=== PATIENT | female | born 1935 | race Caucasian/White ===

== ENCOUNTER 2018-06-02 17:52 | Inpatient (IN) | payer BC, MEDICAID ==
[~2018-06-02] VITALS: Ht 170.2 cm; Wt 91.6 kg
[2018-06-02 18:06] VITALS: BP_SYST 119
--- NOTE | 2018-06-02 18:15 | NUR ---
Pt placed in bed 8
--- NOTE | 2018-06-02 18:20 | NUR ---
Patient to ER via triage with family for evaluation of burning with urination, and foul smelling urine. Patient also reports rash to her right lower leg. Patient is awake, alert and oriented in no acute distress, vital signs stable, respirations even and unlabored, skin warm and dry to touch. Family remains at bedside. Awaiting evaluation by ER MD, will continue to observe and assess.
[2018-06-02] MEDS ORDERED: NS 500 ML IV ONE (18:30)
--- NOTE | 2018-06-02 18:33 | NUR ---
ER at bedside examining patient.
--- NOTE | 2018-06-02 18:37 | NUR ---
# 14 FR straight catheter with use of sterile technique. Immediate return of 30 cc yellow urine noted. Urine sample collected and sent to lab. Pt tolerated procedure well.
--- NOTE | 2018-06-02 18:50 | NUR ---
X-ray at bedside for films. Family remains at bedside, awaiting results and dispo.
[2018-06-02 19:00] LABS: BASOPHILS # (AUTO) 0.1 K/uL (0.0-0.2); BASOPHILS % (AUTO) 0.8 % (0.0-2.0); EOSINOPHILS # (AUTO) 0.1 K/uL (0.0-0.4); EOSINOPHILS % (AUTO) 0.7 % (0.0-4.0); HEMATOCRIT 34.3 % (36-48); HEMOGLOBIN 11.1 g/dL (12.0-16.0); LYMPHOCYTES # (AUTO) 0.7 K/uL (1.0-5.5); LYMPHOCYTES % (AUTO) 9.6 % (20.5-51.5); MEAN CORPUSCULAR HEMOGLOBIN 27 pg (27-31); MEAN CORPUSCULAR HGB CONC 33 % (32-36); MEAN CORPUSCULAR VOLUME 83 fL (79.0-98.0); MONOCYTES # (AUTO) 0.6 K/uL (0.0-1.0); MONOCYTES % (AUTO) 7.6 % (1.7-9.3); NEUTROPHILS % (AUTO) 81.3 % (40.0-70.0); PLATELET COUNT (AUTO) 168 K/uL (130-430); RED BLOOD CELL COUNT(AUTO) 4.14 MIL/uL (4.2-6.2); RED CELL DISTRIBUTION WIDTH 18.2 % (9.0-15.0); WHITE BLOOD COUNT (AUTO) 7.5 K/uL (4.8-10.8)
[2018-06-02 19:12] LABS: ANION GAP 7 (5-15); CALCIUM 8.6 mg/dL (8.4-11.0); CHLORIDE 105 mmol/L (98-107); CREATININE 1.17 mg/dL (0.55-1.30); GLUCOSE 313 mg/dL (70-99); SODIUM SERUM 140 mmol/L (136-145); UREA NITROGEN, BLOOD 31 mg/dL (8-21)
[2018-06-02 19:16] LABS: INR 1.5 (0.8-1.2); PROTHROMBIN TIME 15.1 SECS (9.5-12.5)
[2018-06-02 19:17] LABS: ALANINE AMINOTRANSFERASE 14 U/L (12-78); ALBUMIN 2.6 g/dL (3.4-4.8); ASPARTATE AMINOTRANSFERASE 13 U/L (10-37); TOTAL BILIRUBIN 1.1 mg/dL (0.0-1.0)
--- NOTE | 2018-06-02 19:30 | NUR ---
Patient resting quietly in no acute distress, awaiting results and dispo.
[2018-06-02 19:49] LABS: BILIRUBIN,URINE NEGATIVE (NEGATIVE); BLOOD, URINE 3+ (NEGATIVE); CLARITY/URINE CLOUDY (CLEAR); COLOR,URINE YELLOW (YELLOW); GLUCOSE,URINE NEGATIVE (NEGATIVE); KETONES,URINE NEGATIVE (NEGATIVE); LEUKOCYTE ESTERASE ,URINE 2+ (NEGATIVE); NITRITE, URINE POSITIVE (NEGATIVE); PH,URINE 5.5 (5.0-8.0); PROTEIN URINE 1+ (NEGATIVE)
[2018-06-02 19:55] LABS: BACTERIA,URINE MODERATE /HPF (None Seen); WBC,URINE >100 /HPF (0-3)
--- NOTE | 2018-06-02 20:30 | NUR ---
Medication reconciliation completed with information provided by family. Any prior medication reconciliation on file was reviewed and corrected. Assessment remains unchanged, awaiting dispo.
[2018-06-02] MEDS ORDERED: FURO80TA86 PO (20:37)
[2018-06-02] MEDS ORDERED: MULT-1117 PO (20:37)
[2018-06-02] MEDS ORDERED: APIX5TAB4 PO (20:37)
[2018-06-02] MEDS ORDERED: ZIN220 PO (20:37)
[2018-06-02] MEDS ORDERED: VITA1CAP PO (20:37)
[2018-06-02] MEDS ORDERED: SIMV10TA2 PO (20:37)
[2018-06-02] MEDS ORDERED: INSU100V9 SQ (20:37)
[2018-06-02] MEDS ORDERED: INSU100V SQ (20:37)
[2018-06-02] MEDS ORDERED: METO25TA6 PO (20:37)
--- NOTE | 2018-06-02 21:15 | NUR ---
Dr Grant at bedside speaking with patient/family regarding results and plan of care, questions answered by Dr Grant.
[2018-06-02] MEDS ORDERED: VANCOMYCIN HCL 1,000 MG in NS 250 ML IV ONE (21:30)
[2018-06-02] MEDS ORDERED: VANCOMYCIN HCL 1000 MG/VIAL IV ONE (21:49)
[2018-06-02] MEDS ORDERED: cefTRIAXone 1 GM IVPB PREMIX 50 ML IV ONE (22:00)
--- NOTE | 2018-06-02 22:00 | NUR ---
Patient will be admitted to care of Dr Jones. Admitted to tele unit. Will go to room 135. Belongings list completed. Summary report printed. Report will be given at bedside. Transfer to tele room 135 via ACLS protocol. Licensed nurse present. IV present no signs or symptoms of infiltration.
--- NOTE | 2018-06-02 22:05 | NUR ---
IV antibiotic administration endorsed to floor RN
--- NOTE | 2018-06-02 22:23 | NUR ---
ADMIT NOTE Received pt from ER to the floor with a diagnosis of SEPSIS. Admission process initiated. patient oriented to pain management, safety and call light-teach back done.
--- NOTE | 2018-06-02 22:30 | NUR ---
INITIAL NOTE AT INITIAL ASSESSMENT, PATIENT IS RESTING IN BED, STABLE, NO SIGNS OF RESPIRATORY DISTRESS. FAMILY IS AT BEDSIDE. PATIENT VERBALIZES NO PAIN. PLAN OF CARE FOR THE EVENING IS COMMUNICATED WITH THE PATIENT AND FAMILY. CALL LIGHT- TEACH BACK IS SUCCESSFUL. BED IS LOCKED, ALARMED, AND AT THE LOWEST LEVEL. FALL AND SAFETY PRECAUTIONS WILL BE IN PLACE THROUGHOUT THE SHIFT.
[2018-06-02 22:39] VITALS: BP_SYST 129
[2018-06-02 23:00] VITALS: BP_SYST 129
[2018-06-02] MEDS ORDERED: TYC3 PO (23:13)
[2018-06-02] MEDS ORDERED: PRAM1TAB4 PO (23:13)
[2018-06-02] MEDS ORDERED: DET2 PO (23:13)
[2018-06-02] MEDS ORDERED: NITSL SL (23:13)
[2018-06-02] MEDS ORDERED: CALC-22 PO (23:13)
[2018-06-02] MEDS ORDERED: GABA-531 PO (23:13)
[2018-06-02] MEDS ORDERED: FAMO20TA8 PO (23:13)
[2018-06-02] MEDS ORDERED: DIGO125T79 PO (23:13)
[2018-06-02] MEDS ORDERED: ALBU8.5H8 INH (23:13)
[2018-06-02] MEDS ORDERED: ALEN10TA6 PO (23:13)
[2018-06-02] MEDS ORDERED: IPRA4AER INH (23:13)
[2018-06-02] MEDS ORDERED: DILT120C89 PO (23:13)
[2018-06-02] MEDS ORDERED: ACET-2634 PO (23:13)
[2018-06-02] MEDS ORDERED: DOCU-144 PO (23:13)
[2018-06-03] MEDS ORDERED: ACETAMINOPHEN/CODEINE 300 MG-30 MG TABLET PO PRN
[2018-06-03] MEDS ORDERED: HYDROcodone/ACETAMIN 5-325 MG TAB (NORCO/ VICODIN) PO PRN
[2018-06-03] MEDS ORDERED: ONDANSETRON HCL 4 MG/2 ML VIAL IVP PRN
[2018-06-03] MEDS ORDERED: ALBUTEROL SULFATE 0.083% 2.5 MG/3 ML VIAL.NEB INH PRN
--- NOTE | 2018-06-03 00:15 | NUR ---
DR. TRINH ROUNDS/ ID CONSULT DENIED DR. TRINH IS AT BEDSIDE OF PATIENT. SHE HAS DENIED REQUEST FOR ID CONSULT, SHE STATES THAT "THE PATIENT JUST HAS A UTI, HER WBC IS WNL".
--- NOTE | 2018-06-03 00:28 | NUR ---
NOTE PATIENT IS SLEEPING, STABLE, NO SIGNS OF RESPIRATORY DISTRESS. CALL LIGHT WITHIN REACH. BED IS LOCKED, ALARMED, AND AT THE LOWEST LEVEL.
[2018-06-03] MEDS ORDERED: NS 100 ML IV ONE (01:00)
[2018-06-03] MEDS: NACL 0.9% 1,000 ML IV ONE ×2 (01:32→06:53)
--- NOTE | 2018-06-03 02:25 | NUR ---
NOTE PATIENT IS SLEEPING, STABLE, NO SIGNS OF RESPIRATORY DISTRESS. CALL LIGHT WITHIN REACH. BED IS LOCKED, ALARMED, AND AT THE LOWEST LEVEL.
[2018-06-03 04:03] VITALS: BP_SYST 129
--- NOTE | 2018-06-03 04:21 | NUR ---
NOTE PATIENT IS SLEEPING, STABLE, NO SIGNS OF RESPIRATORY DISTRESS. CALL LIGHT WITHIN REACH. BED IS LOCKED, ALARMED, AND AT THE LOWEST LEVEL.
[2018-06-03] MEDS ORDERED: NACL 0.9% 1,000 ML IV ONE (06:00)
--- NOTE | 2018-06-03 06:20 | NUR ---
CLOSING NOTE PATIENT IS SLEEPING, STABLE, NO SIGNS OF RESPIRATORY DISTRESS. PATIENT HAS GOTTEN UP MANY TIMES THROUGHOUT THE NIGHT FOR URINATION, SHE IS INCONTINENT (MD DENIED FAMILY'S REQUEST FOR CAMACHO INSERTION). CALL LIGHT WITHIN REACH. BED IS LOCKED, ALARMED, AND AT THE LOWEST LEVEL. ALL NEEDS AND ORDERS HAVE BEEN MET. WILL CONTINUE TO MONITOR UNTIL SHIFT REPORT IS GIVEN AT BEDSIDE TO AM NURSE.
[2018-06-03] MEDS: INSULIN ASPART 100 UNITS/ML, 10 ML VIAL (NovoLOG) SUBCUT PRN ×4 (06:58→21:32)
[2018-06-03 07:14] LABS: BASOPHILS % (AUTO) 0.1 % (0.0-2.0); EOSINOPHILS # (AUTO) 0.1 K/uL (0.0-0.4); EOSINOPHILS % (AUTO) 1.4 % (0.0-4.0); HEMATOCRIT 34.5 % (36-48); HEMOGLOBIN 11.3 g/dL (12.0-16.0); LYMPHOCYTES # (AUTO) 0.6 K/uL (1.0-5.5); LYMPHOCYTES % (AUTO) 8.6 % (20.5-51.5); MEAN CORPUSCULAR HEMOGLOBIN 27 pg (27-31); MEAN CORPUSCULAR HGB CONC 33 % (32-36); MEAN CORPUSCULAR VOLUME 82 fL (79.0-98.0); MONOCYTES # (AUTO) 0.6 K/uL (0.0-1.0); MONOCYTES % (AUTO) 8.4 % (1.7-9.3); NEUTROPHILS # (AUTO) 5.3 K/uL (1.8-7.7); NEUTROPHILS % (AUTO) 81.5 % (40.0-70.0); PLATELET COUNT (AUTO) 153 K/uL (130-430); RED BLOOD CELL COUNT(AUTO) 4.19 MIL/uL (4.2-6.2); RED CELL DISTRIBUTION WIDTH 18.1 % (9.0-15.0); WHITE BLOOD COUNT (AUTO) 6.6 K/uL (4.8-10.8)
--- NOTE | 2018-06-03 07:30 | NUR ---
OPENING NOTE PT LAYING IN BED AWAKE, WATCHING TV - DENIES ANY PAIN/ SOB. KRIS LIGHT VISIBLY WITHIN REACH, WITH BED IN THE LOWEST POSITION.
[2018-06-03 08:00] VITALS: BP_SYST 127
--- NOTE | 2018-06-03 08:04 | NUR ---
Nutrition Update Mj Scale 17 noted. Pt admitted for Sepsis Diet: [facility] diet BMI: 31.6 kg/m2 RD to follow per nutrition care standards.
[2018-06-03] MEDS: LEVOFLOXACIN 250 MG/D5W 50 ML IV SCH (08:33)
[2018-06-03] MEDS: ACETAMINOPHEN 325 MG TABLET PO PRN (08:39)
[2018-06-03] MEDS: APIXABAN 2.5 MG TABLET PO SCH ×2 (08:43→21:21)
--- NOTE | 2018-06-03 08:52 | NUR ---
AM MEDS MORNING MEDS GIVEN. PT C/O HEADACHE GIVEN TYLENOL ORDERED. FLU VACCINE ALSO GIVEN AT THIS TIME. SAFETY MAINTAINED.
[2018-06-03] MEDS ORDERED: FUROSEMIDE 40 MG/4 ML VIAL IVP ONE (11:30)
--- NOTE | 2018-06-03 11:39 | NUR ---
PT GIVEN 4 UNITS NOVOLOG FOR BLOOD SUGAR 241. LASIX IVP ALSO GIVEN.
[2018-06-03 12:11] VITALS: BP_SYST 137
[2018-06-03 12:21] LABS: CHLORIDE 106 mmol/L (98-107); POTASSIUM 3.9 mmol/L (3.5-5.1); SODIUM SERUM 140 mmol/L (136-145)
[2018-06-03 12:22] LABS: ALANINE AMINOTRANSFERASE 13 U/L (12-78); ALBUMIN 2.2 g/dL (3.4-4.8); ANION GAP 4 (5-15); ASPARTATE AMINOTRANSFERASE 12 U/L (10-37); CALCIUM 8.1 mg/dL (8.4-11.0); CREATININE 1.04 mg/dL (0.55-1.30); GLUCOSE 244 mg/dL (70-99); TOTAL BILIRUBIN 1.1 mg/dL (0.0-1.0); UREA NITROGEN, BLOOD 25 mg/dL (8-21)
--- NOTE | 2018-06-03 13:09 | NUR ---
pt eating lunch at this time. no distress noted. safety maintained.
--- NOTE | 2018-06-03 15:03 | NUR ---
Dietitian Recommendations *Recommend [facility] diet w/ Glucerna BID, Arron BID. Oral supplements will provide additional 600 kcal and 25 gm protein daily. Please see Nutritional Assessment for details. DANYELL, RD
[2018-06-03 16:00] VITALS: BP_SYST 145
--- NOTE | 2018-06-03 16:47 | NUR ---
pt given 4 units novolog for blood sugar 227. no distress noted.
--- NOTE | 2018-06-03 19:00 | NUR ---
CLOSING NOTE ALL NEEDS MET THROUGH SHIFT. SAFETY MAINTAINED. WILL ENDORSE CARE TO LAND CLASSIFIER.
[2018-06-03 19:48] VITALS: BP_SYST 130
--- NOTE | 2018-06-03 19:48 | NUR ---
INITIAL NOTE AT INITIAL ASSESSMENT, PATIENT IS RESTING IN BED, STABLE, NO SIGNS OF RESPIRATORY DISTRESS. PATIENT VERBALIZES NO PAIN. PLAN OF CARE FOR THE EVENING IS COMMUNICATED WITH THE PATIENT. CALL LIGHT- TEACH BACK IS SUCCESSFUL . BED IS LOCKED, ALARMED, AND AT THE LOWEST LEVEL. FALL AND SAFETY PRECAUTIONS WILL BE IN PLACE THROUGHOUT THE SHIFT.
[2018-06-03] MEDS: cefTRIAXone 1 GM IVPB PREMIX 50 ML IV SCH (21:23)
--- NOTE | 2018-06-03 21:45 | NUR ---
NOTE AT THIS TIME, PATIENT IS RESTING IN BED, STABLE, NO SIGNS OF RESPIRATORY DISTRESS. BLOOD SUGAR AT THIS TIME REQUIRES INSULIN COVERAGE PER SSI ORDERED BY MD. CALL LIGHT IS WITHIN REACH. BED IS LOCKED, ALARMED, AND AT THE LOWEST LEVEL.
--- NOTE | 2018-06-03 23:42 | NUR ---
NOTE AT THIS TIME, PATIENT IS SLEEPING, STABLE, NO SIGNS OF RESPIRATORY DISTRESS. CALL LIGHT IS WITHIN REACH. BED IS LOCKED, ALARMED, AND AT THE LOWEST LEVEL.
[2018-06-03 23:45] VITALS: BP_SYST 138
--- NOTE | 2018-06-04 01:40 | NUR ---
NOTE PATIENT IS SLEEPING, STABLE, NO SIGNS OF RESPIRATORY DISTRESS. CALL LIGHT IS WITHIN REACH. BED IS LOCKED, ALARMED, AND AT THE LOWEST LEVEL.
--- NOTE | 2018-06-04 02:18 | NUR ---
NOTE PATIENT IS SLEEPING, STABLE, NO SIGNS OF RESPIRATORY DISTRESS. CALL LIGHT IS WITHIN REACH. BED IS LOCKED, ALARMED, AND AT THE LOWEST LEVEL.
--- NOTE | 2018-06-04 04:15 | NUR ---
NOTE PATIENT IS SLEEPING, STABLE, NO SIGNS OF RESPIRATORY DISTRESS. CALL LIGHT WITHIN REACH. BED IS LOCKED, ALARMED, AND AT THE LOWEST LEVEL.
--- NOTE | 2018-06-04 05:46 | NUR ---
NOTE PATIENT IS SLEEPING, STABLE, NO SIGNS OF RESPIRATORY DISTRESS. CALL LIGHT IS WITHIN REACH. BED IS LOCKED, ALARMED, AND AT THE LOWEST LEVEL.
[2018-06-04 06:03] LABS: BASOPHILS % (AUTO) 0.3 % (0.0-2.0); EOSINOPHILS # (AUTO) 0.1 K/uL (0.0-0.4); EOSINOPHILS % (AUTO) 1.4 % (0.0-4.0); HEMATOCRIT 32.8 % (36-48); HEMOGLOBIN 10.6 g/dL (12.0-16.0); LYMPHOCYTES # (AUTO) 0.6 K/uL (1.0-5.5); LYMPHOCYTES % (AUTO) 11.2 % (20.5-51.5); MEAN CORPUSCULAR HEMOGLOBIN 26 pg (27-31); MEAN CORPUSCULAR HGB CONC 32 % (32-36); MEAN CORPUSCULAR VOLUME 81 fL (79.0-98.0); MONOCYTES # (AUTO) 0.5 K/uL (0.0-1.0); MONOCYTES % (AUTO) 9.6 % (1.7-9.3); NEUTROPHILS # (AUTO) 4.1 K/uL (1.8-7.7); NEUTROPHILS % (AUTO) 77.5 % (40.0-70.0); PLATELET COUNT (AUTO) 143 K/uL (130-430); RED BLOOD CELL COUNT(AUTO) 4.05 MIL/uL (4.2-6.2); WHITE BLOOD COUNT (AUTO) 5.3 K/uL (4.8-10.8)
[2018-06-04] MEDS: INSULIN ASPART 100 UNITS/ML, 10 ML VIAL (NovoLOG) SUBCUT PRN ×3 (06:11→18:35)
[2018-06-04] MEDS: HYDROcodone/ACETAMIN 10-325 MG TAB PO PRN (06:14)
--- NOTE | 2018-06-04 06:52 | NUR ---
CLOSING NOTE PATIENT IS SLEEPING, STABLE, NO SIGNS OF RESPIRATORY DISTRESS. CALL LIGHT IS WITHIN REACH. BED IS LOCKED, ALARMED, AND AT THE LOWEST LEVEL. ALL NEEDS AND ORDERS HAVE BEEN MET. FALL AND SAFETY PRECAUTIONS HAVE BEEN IN PLACE THROUGHOUT THE SHIFT. WILL CONTINUE TO MONITOR UNTIL SHIFT REPORT IS GIVEN AT BEDSIDE TO AM NURSE.
--- NOTE | 2018-06-04 07:33 | NUR ---
PATIENT IS AWAKE, A/OX3. POC IS EXPLAINED WITH THE PATIENT. IV ON THE RIGHT FA, #22, SL, INTACT AND PATENT. CALL LIGHT IS WITHING REACH . BED LOCKED AT THE LOWEST POSITION, BED ALARM IS ON, WILL CONTINUE TO MONITOR.
[2018-06-04 08:00] VITALS: BP_SYST 128
[2018-06-04] MEDS: ACETAMINOPHEN 325 MG TABLET PO PRN (08:45)
[2018-06-04] MEDS: APIXABAN 2.5 MG TABLET PO SCH ×2 (08:46→21:07)
[2018-06-04] MEDS: LEVOFLOXACIN 250 MG/D5W 50 ML IV SCH (08:47)
--- NOTE | 2018-06-04 09:42 | NUR ---
IV RESTARTED ON LEFT FA, #20, SL.
--- NOTE | 2018-06-04 11:30 | NUR ---
PATIENT'S BLOOD SUGAR 180. WILL GIVE 2 UNITS INSULIN ASPART WHEN FOOD COMES.
[2018-06-04 12:10] VITALS: BP_SYST 125
--- NOTE | 2018-06-04 13:10 | NUR ---
PATIENT FINISHES HER LUNCH. NO SIGNS OF DISTRESS NOTED.
--- NOTE | 2018-06-04 15:06 | NUR ---
PATIENT IS SLEEPING, NO SIGNS OF DISTRESS NOTED.
[2018-06-04 16:00] VITALS: BP_SYST 131
--- NOTE | 2018-06-04 17:00 | NUR ---
PATIENT'S BLOOD SUGAR AT 171. 2 UNITS OF ASPART WILL BE GIVEN.
--- NOTE | 2018-06-04 18:28 | NUR ---
PATIENT FINISHES DINNER, NO SIGNS OF DISTRESS NOTED.
[2018-06-04 19:48] VITALS: BP_SYST 140
[2018-06-04] MEDS: cefTRIAXone 1 GM IVPB PREMIX 50 ML IV SCH (21:01)
--- NOTE | 2018-06-04 21:50 | NUR ---
NOTE PATIENT IS RESTING IN BED, STABLE, NO SIGNS OF RESPIRATORY DISTRESS. BLOOD SUGAR CHECK AT THIS TIME REQUIRES INSULIN COVERAGE PER SSI ORDERED BY MD. CALL LIGHT IS WITHIN REACH . BED IS LOCKED, ALARMED, AND AT THE LOWEST LEVEL.
--- NOTE | 2018-06-04 23:47 | NUR ---
NOTE PATIENT IS SLEEPING, STABLE, NO SIGNS OF RESPIRATORY DISTRESS. CALL LIGHT IS WITHIN REACH. BED IS LOCKED, ALARMED, AND AT THE LOWEST LEVEL.
[2018-06-05 00:30] VITALS: BP_SYST 133
[2018-06-05] MEDS: ACETAMINOPHEN 325 MG TABLET PO PRN (00:58)
--- NOTE | 2018-06-05 01:45 | NUR ---
NOTE PATIENT IS RESTING IN BED, STABLE, NO SIGNS OF RESPIRATORY DISTRESS. CALL LIGHT IS WITHIN REACH . BED IS LOCKED, ALARMED, AND AT THE LOWEST LEVEL.
--- NOTE | 2018-06-05 03:40 | NUR ---
NOTE PATIENT IS SLEEPING, STABLE, NO SIGNS OF RESPIRATORY DISTRESS. CALL LIGHT IS WITHIN REACH . BED IS LOCKED, ALARMED, AND AT THE LOWEST LEVEL.
--- NOTE | 2018-06-05 05:32 | NUR ---
NOTE PATIENT IS SLEEPING, STABLE, NO SIGNS OF RESPIRATORY DISTRESS. CALL LIGHT IS WITHIN REACH . BED IS LOCKED, ALARMED, AND AT THE LOWEST LEVEL.
--- NOTE | 2018-06-05 06:45 | NUR ---
CLOSING NOTE PATIENT IS RESTING IN BED, STABLE, NO SIGNS OF RESPIRATORY DISTRESS. SHE IS COMPLAINING OF SEVERE BLE PAIN, PRN MEDICATION FOR SEVERE PAIN IS GIVEN. BLOOD SUGAR AT THIS TIME REQUIRES INSULIN COVERAGE PER SSI ORDERED BY MD. CALL LIGHT IS WITHIN REACH. BED IS LOCKED, ALARMED, AND AT THE LOWEST LEVEL. FALL, AND SAFETY PRECAUTIONS HAVE BEEN IN PLACE THROUGHOUT THE SHIFT. WILL CONTINUE TO MONITOR UNTIL SHIFT REPORT IS GIVEN AT BEDSIDE TO AM NURSE.
[2018-06-05] MEDS: INSULIN ASPART 100 UNITS/ML, 10 ML VIAL (NovoLOG) SUBCUT PRN ×2 (06:56→12:03)
[2018-06-05] MEDS: HYDROcodone/ACETAMIN 10-325 MG TAB PO PRN (07:00)
[2018-06-05 08:00] VITALS: BP_SYST 130
--- NOTE | 2018-06-05 08:00 | NUR ---
opening Note Report received from [facility] shift nurse. Patient is awake and oriented x 3. No signs of distress noted at the moment. IV is on the LFA 20g saline locked. Call light is within reach and bed is in low position. Will continue to closely monitor.
[2018-06-05] MEDS: LEVOFLOXACIN 250 MG/D5W 50 ML IV SCH (09:21)
[2018-06-05] MEDS: APIXABAN 2.5 MG TABLET PO SCH (09:21)
--- NOTE | 2018-06-05 10:25 | NUR ---
Rounds Patient is currently resting in bed. No signs of distress noted.
[2018-06-05 12:02] VITALS: BP_SYST 130
--- NOTE | 2018-06-05 12:14 | NUR ---
DCP. MET WITH SON AT BEDSIDE. PT IS A/O. DC TO SNF [facility] RM 14 B T [phone] VIA MEDIC/RSI AMB T [phone] CHEF'S ASSISTANT AT 2 PM. SPOKE WITH PT'S DTR VIDA WELL RE DCP. AGREED WITH THE PLAN . SPOKE WITH HO NURSE RE PLAN OF CARE. PLS COPY THE CHART. CALL FOR REPORT. MAKE SURE TRANSFER ORDERS ARE INCLUDED IN THE PACKET. THANKS. [facility] FOR IV ABX AND PHYSICAL THERAPY.
--- NOTE | 2018-06-05 12:30 | NUR ---
Rounds/MD Rounds Patient is resting in bed. NO signs of distress noted. Call light is within reach and bed is in low position. Dr. Justice rounded on the patient and orders were received to transfer to SNF.
[2018-06-05 12:58] VITALS: BP_SYST 130
--- NOTE | 2018-06-05 13:11 | NUR ---
MD CLOUD [facility]ED [facility] SPOKE WITH DR.JANDIAL ZELAYA RAJNISH PRODUCTION REPRODUCTION MANAGER.
[2018-06-05] MEDS ORDERED: ERTA1VIA2 IV (13:52)
[2018-06-05] MEDS ORDERED: [UNRECOGNIZED DRUG - CODE] IV (13:53)
--- NOTE | 2018-06-05 14:15 | NUR ---
Transition of Care Note report given to Lu Muir. Patient will be going to room 28. Spoke with Dr[address] Justice and made md aware of the urine results. Orders were received. Report and patient packet was given to paramedics. Patient left the unit in stable condition.
--- NOTE | 2018-06-05 16:46 | NUR ---
Discharge Planning: DCP faxed pt order to Alisha at [facility] (f [phone] p [phone])
== END 2018-06-05 14:24 | DRG 602 ==
LOC: SED 17:52 → STU 21:56
PROVIDERS: ADMIT Internal Medicine; ATTEND Internal Medicine
DX: L03.116 Cellulitis of left lower limb (principal); E43 Unspecified severe protein-calorie malnutrition; N39.0 Urinary tract infection, site not specified; L03.115 Cellulitis of right lower limb; B96.20 Unspecified Escherichia coli [E. coli] as the cause of diseases classified elsewhere; I48.2 Chronic atrial fibrillation; E11.9 Type 2 diabetes mellitus without complications; I11.0 Hypertensive heart disease with heart failure; I50.9 Heart failure, unspecified; Z85.850 Personal history of malignant neoplasm of thyroid; Z86.73 Personal history of transient ischemic attack (TIA), and cerebral infarction without residual deficits; I25.2 Old myocardial infarction; Z79.01 Long term (current) use of anticoagulants; Z88.2 Allergy status to sulfonamides; Z79.899 Other long term (current) drug therapy
CPT/HCPCS: 36415; 71045; 80053; 81000-TC; 82962; 83605; 83880; 84484; 85025; 85610-TC; 85730-TC; 87040-TC; 87086; 87186-TC; 90656; 93005; 93306; 94640; 96365; 96367; 96368; 99285; J0696; J1815; J1940; J1956; J3370; J7030; J7613

== ENCOUNTER 2018-07-10 18:09 | Emergency (ER) | payer BC, MEDICAID ==
[~2018-07-10] VITALS: Ht 170.2 cm; Wt 92.5 kg
[~2018-07-10 18:09] MED LIST: ACET-2634 PO; ALBU8.5H8 INH; ALEN10TA6 PO; APIX5TAB4 PO; CALC-22 PO; DET2 PO; DIGO125T79 PO; DILT120C89 PO; DOCU-144 PO; ERTA1VIA2 IV; FAMO20TA8 PO; FURO80TA86 PO; GABA-531 PO; INSU100V SQ; INSU100V9 SQ; IPRA4AER INH; METO25TA6 PO; MULT-1117 PO; NITSL SL; PRAM1TAB4 PO; SIMV10TA2 PO; TYC3 PO; VITA1CAP PO; ZIN220 PO; [UNRECOGNIZED DRUG - CODE] IV
[2018-07-10 18:36] VITALS: BP_SYST 132
[2018-07-10 19:32] LABS: BASOPHILS % (AUTO) 0.2 % (0.0-2.0); EOSINOPHILS # (AUTO) 0.2 K/uL (0.0-0.4); EOSINOPHILS % (AUTO) 3.1 % (0.0-4.0); HEMATOCRIT 36.3 % (36-48); HEMOGLOBIN 11.4 g/dL (12.0-16.0); LYMPHOCYTES # (AUTO) 0.7 K/uL (1.0-5.5); LYMPHOCYTES % (AUTO) 14.6 % (20.5-51.5); MEAN CORPUSCULAR HEMOGLOBIN 26 pg (27-31); MEAN CORPUSCULAR HGB CONC 31 % (32-36); MEAN CORPUSCULAR VOLUME 82 fL (79.0-98.0); MONOCYTES # (AUTO) 0.3 K/uL (0.0-1.0); MONOCYTES % (AUTO) 6.8 % (1.7-9.3); NEUTROPHILS # (AUTO) 3.7 K/uL (1.8-7.7); NEUTROPHILS % (AUTO) 75.3 % (40.0-70.0); PLATELET COUNT (AUTO) 202 K/uL (130-430); RED BLOOD CELL COUNT(AUTO) 4.42 MIL/uL (4.2-6.2); RED CELL DISTRIBUTION WIDTH 17.7 % (9.0-15.0); WHITE BLOOD COUNT (AUTO) 4.9 K/uL (4.8-10.8)
[2018-07-10 19:53] LABS: ANION GAP 4 (5-15); CALCIUM 9.1 mg/dL (8.4-11.0); CHLORIDE 101 mmol/L (98-107); CREATININE 0.87 mg/dL (0.55-1.30); GLUCOSE 257 mg/dL (70-99); POTASSIUM 3.8 mmol/L (3.5-5.1); SODIUM SERUM 138 mmol/L (136-145); UREA NITROGEN, BLOOD 22 mg/dL (8-21)
[2018-07-10 20:01] LABS: ALANINE AMINOTRANSFERASE 15 U/L (12-78); ALBUMIN 2.9 g/dL (3.4-4.8); ASPARTATE AMINOTRANSFERASE 13 U/L (10-37); TOTAL BILIRUBIN 1.1 mg/dL (0.0-1.0)
[2018-07-10] MEDS ORDERED: ONDANSETRON HCL 4 MG/2 ML VIAL IVP ONE (20:15)
[2018-07-10] MEDS ORDERED: VANCOMYCIN HCL 1,000 MG in NS 250 ML IV ONE (20:15)
[2018-07-10] MEDS ORDERED: PIPERACILLIN/TAZO 3.375 GM in NS 50 ML IV ONE (20:15)
[2018-07-10] MEDS ORDERED: MORPHINE 2 MG/ML INJ. SYRINGE IVP ONE (20:15)
[2018-07-10] MEDS ORDERED: PIPERACILLIN/TAZOBACTAM 3.375 GM/VIAL (ZOSYN) IV ONE (20:30)
[2018-07-10] MEDS ORDERED: VANCOMYCIN HCL 1000 MG/VIAL IV ONE (20:51)
[2018-07-10] MEDS ORDERED: MORPHINE 4 MG/ML INJ. SYRINGE IVP ONE (23:30)
[2018-07-11 00:21] VITALS: BP_SYST 130
== END 2018-07-11 00:21 | disposition home or self-care (01) ==
LOC: SED 18:09
DX: L03.116 Cellulitis of left lower limb (principal); I48.91 Unspecified atrial fibrillation; E11.9 Type 2 diabetes mellitus without complications; I10 Essential (primary) hypertension; Z86.73 Personal history of transient ischemic attack (TIA), and cerebral infarction without residual deficits; Z79.899 Other long term (current) drug therapy
CPT/HCPCS: 36415; 80053; 85025; 87040; 93970; 96365; 96366; 96367; 96375; 96376; 99284; J2270 ×2; J2405; J2543; J3370

== ENCOUNTER 2018-09-19 18:44 | Inpatient (IN) | payer BC, MEDICAID ==
[~2018-09-19] VITALS: Ht 170.2 cm; Wt 89.4 kg
[2018-09-19 18:59] VITALS: BP_SYST 133
[2018-09-19] MEDS: NACL 0.9% 1,000 ML IV ONE ×2 (19:00→20:40)
--- NOTE | 2018-09-19 19:00 | NUR ---
Patient is awake, alert, and oriented to name only. Daughters are at bedside and report that her belly is tender on palpation and distended. Patient has a history DMII, stroke 2013, RI x3, pneumonia, AFIB, high cholesterol, HTN, left sided defecits secondary to stroke, left leg surgery, ascites, thoracentesis, thyroid cancer. Patient denies pain at this time.
--- NOTE | 2018-09-19 19:05 | NUR ---
Patient transported to radiology via gurney, accompanied by compliance field technician.
--- NOTE | 2018-09-19 19:13 | NUR ---
Report given to Fiordaliza for continuation of care.
--- NOTE | 2018-09-19 19:15 | NUR ---
Pt is awake and alert. Family at bedside. ST noted on monitor. No signs of SOB or acute distress noted. Will continue to monitor.
[2018-09-19 19:44] LABS: HEMATOCRIT 37.2 % (36-48); HEMOGLOBIN 11.3 g/dL (12.0-16.0); MEAN CORPUSCULAR VOLUME 79 fL (79.0-98.0); RED BLOOD CELL COUNT(AUTO) 4.69 MIL/uL (4.2-6.2); WHITE BLOOD COUNT (AUTO) 10.4 K/uL (4.8-10.8)
[2018-09-19 19:45] LABS: BASOPHILS % (AUTO) 0.2 % (0.0-2.0); EOSINOPHILS % (AUTO) 0.2 % (0.0-4.0); LYMPHOCYTES % (AUTO) 7.1 % (20.5-51.5); MEAN CORPUSCULAR HEMOGLOBIN 24 pg (27-31); MEAN CORPUSCULAR HGB CONC 30 % (32-36); MONOCYTES % (AUTO) 9.5 % (1.7-9.3); PLATELET COUNT (AUTO) 269 K/uL (130-430); RED CELL DISTRIBUTION WIDTH 19.4 % (9.0-15.0)
[2018-09-19 19:46] LABS: LYMPHOCYTES # (AUTO) 0.7 K/uL (1.0-5.5); NEUTROPHILS # (AUTO) 8.6 K/uL (1.8-7.7)
[2018-09-19 19:55] LABS: ANION GAP 7 (5-15); CALCIUM 8.2 mg/dL (8.4-11.0); CHLORIDE 103 mmol/L (98-107); CREATININE 1.14 mg/dL (0.55-1.30); GLUCOSE 120 mg/dL (70-99); POTASSIUM 4.6 mmol/L (3.5-5.1); SODIUM SERUM 133 mmol/L (136-145); UREA NITROGEN, BLOOD 53 mg/dL (8-21)
[2018-09-19 19:58] LABS: INR 1.9 (0.8-1.2); PROTHROMBIN TIME 18.6 SECS (9.5-12.5)
[2018-09-19 20:00] LABS: ALANINE AMINOTRANSFERASE 27 U/L (12-78); ASPARTATE AMINOTRANSFERASE 41 U/L (10-37); TOTAL BILIRUBIN 1.2 mg/dL (0.0-1.0)
[2018-09-19 20:01] LABS: ALCOHOL, BLOOD < 3 mg/dL (<10)
[2018-09-19] MEDS ORDERED: cefTRIAXone 1 GM in D5W 50 ML IV ONE (20:30)
[2018-09-19] MEDS ORDERED: PIPERACILLIN/TAZO 3.375 GM in NS 50 ML IV ONE (20:30)
[2018-09-19] MEDS ORDERED: NACL 0.9% 3,000 ML IV ONE (20:30)
--- NOTE | 2018-09-19 20:55 | NUR ---
# 22 gauge angiocath placed to right hand. Use of asceptic technique. Opsite placed over site. Blood return noted. Flushed with 10 cc of normal saline. No evidence of infiltration noted. Patient tolerated well.
--- NOTE | 2018-09-19 21:00 | NUR ---
Medication reconciliation completed with information provided by family. Any prior medication reconciliation on file was reviewed and corrected.
[2018-09-19] MEDS ORDERED: cefTRIAXone 1 GM VIAL ONE (21:07)
[2018-09-19] MEDS ORDERED: PIPERACILLIN/TAZOBACTAM 3.375 GM/VIAL (ZOSYN) IV ONE (21:08)
--- NOTE | 2018-09-19 21:30 | NUR ---
Pt admitted to tele unit. Will go to room 110A. Belongings list completed. Summary report printed. Report will be given at bedside. Family aware of POC.
--- NOTE | 2018-09-19 21:55 | NUR ---
ADMISSION NOTE Received patient from ER via kirsten, received report from ASAD LEE. Patient admitted with diagnosis of PNEUMONIA, ASCITES. Patient oriented to hospital routine, call light, toileting and safety-patient verbalized understanding.
[2018-09-20] VITALS (8 sets, daily range): BP systolic 119–139
[2018-09-20] MEDS ORDERED: ALBUTEROL SULFATE 0.083% 2.5 MG/3 ML VIAL.NEB INH PRN
[2018-09-20] MEDS ORDERED: PIPERACILLIN/TAZO 3.375/DEX-IS 50 ML IV SCH
[2018-09-20] MEDS ORDERED: MORPHINE 4 MG/ML INJ. SYRINGE IVP PRN
[2018-09-20] MEDS ORDERED: ONDANSETRON HCL 4 MG/2 ML VIAL IVP PRN
[2018-09-20] MEDS ORDERED: NITROGLYCERIN 0.4 MG TAB.SUBL SL PRN (00:15)
[2018-09-20] MEDS ORDERED: PIPERACILLIN/TAZOBACTAM 3.375 GM/VIAL (ZOSYN) IV ONE (00:28)
[2018-09-20] MEDS ORDERED: AZITHROMYCIN 500 MG/VIAL (ZITHROMAX) IV ONE (00:29)
[2018-09-20] MEDS: AZITHROMYCIN 500 MG in NS 250 ML IV SCH ×2 (00:31→23:36)
--- NOTE | 2018-09-20 00:31 | NUR ---
Med pass: IV infusion of Zithromax 500 MG piggyback initiated at this time per MD order to patient's right hand IV. Site to patient's right hand is patent and benign. Educated patient regarding medication indications, side effects. Understanding verbalized. Call light is with patient. Will continue to monitor.
--- NOTE | 2018-09-20 03:15 | NUR ---
IV reinsertion: Found IV catheter completely removed from site. Catheter is intact. New IV reinserted by charge nurse ASAD Aparicio to patient's right hand, 22 gauge. IV fluids resumed per MD order. Call light with patient. Will continue to monitor.
[2018-09-20] MEDS: PIPERACILLIN/TAZO 3.375 GM in NS 50 ML IV SCH ×4 (03:25→21:21)
--- NOTE | 2018-09-20 05:20 | NUR ---
Note: Assisted ERNESTO Jaramillo in providing patient with incontinence care. Patient tolerated well. IV site remains intact. Call light with patient. Will continue to monitor.
[2018-09-20] MEDS: FAMOTIDINE 20 MG TABLET PO SCH (06:07)
--- NOTE | 2018-09-20 07:00 | NUR ---
Closing note: Patient is resting in bed with eyes closed, no acute distress. IV fluids infusing to patient's left forearm per MD order. All needs met. Call light with patient. Will endorse care to dayshift RN.
[2018-09-20 07:40] LABS: EOSINOPHILS % (AUTO) 0.3 % (0.0-4.0); HEMATOCRIT 34.1 % (36-48); HEMOGLOBIN 10.9 g/dL (12.0-16.0); LYMPHOCYTES # (AUTO) 0.6 K/uL (1.0-5.5); LYMPHOCYTES % (AUTO) 7.4 % (20.5-51.5); MEAN CORPUSCULAR HEMOGLOBIN 24 pg (27-31); MEAN CORPUSCULAR HGB CONC 32 % (32-36); MEAN CORPUSCULAR VOLUME 76 fL (79.0-98.0); MONOCYTES # (AUTO) 0.6 K/uL (0.0-1.0); MONOCYTES % (AUTO) 7.7 % (1.7-9.3); NEUTROPHILS # (AUTO) 6.7 K/uL (1.8-7.7); NEUTROPHILS % (AUTO) 84.6 % (40.0-70.0); PLATELET COUNT (AUTO) 282 K/uL (130-430); RED BLOOD CELL COUNT(AUTO) 4.52 MIL/uL (4.2-6.2); RED CELL DISTRIBUTION WIDTH 17.6 % (9.0-15.0); WHITE BLOOD COUNT (AUTO) 7.9 K/uL (4.8-10.8)
--- NOTE | 2018-09-20 07:45 | NUR ---
Initial note: Patient is alert, oriented x2, denies any pain or discomfort. She is bedrest with left side weakness, on Normal saline from ER IVF at 175 ml/hr infusing via right hand #22G, no sign of infiltration. Will continue monitor.
[2018-09-20 08:06] LABS: ALANINE AMINOTRANSFERASE 26 U/L (12-78); ALBUMIN 1.8 g/dL (3.4-4.8); ANION GAP 10 (5-15); ASPARTATE AMINOTRANSFERASE 38 U/L (10-37); CALCIUM 7.9 mg/dL (8.4-11.0); CHLORIDE 104 mmol/L (98-107); CREATININE 1.17 mg/dL (0.55-1.30); GLUCOSE 167 mg/dL (70-99); POTASSIUM 4.6 mmol/L (3.5-5.1); SODIUM SERUM 138 mmol/L (136-145); TOTAL BILIRUBIN 1.1 mg/dL (0.0-1.0); UREA NITROGEN, BLOOD 49 mg/dL (8-21)
[2018-09-20] MEDS ORDERED: APIXABAN 2.5 MG TABLET PO SCH (09:00)
[2018-09-20] MEDS: DIGOXIN 0.125 MG TABLET PO SCH (09:39)
[2018-09-20] MEDS: DILTIAZEM HCL 120 MG CAP.SR.24H PO SCH (09:40)
[2018-09-20] MEDS: METOPROLOL TARTRATE 25 MG TABLET PO SCH ×2 (09:40→21:10)
[2018-09-20] MEDS: DOCUSATE SODIUM 100 MG CAPSULE PO SCH ×2 (09:40→21:10)
[2018-09-20] MEDS: FUROSEMIDE 80 MG TABLET PO SCH (09:41)
--- NOTE | 2018-09-20 10:29 | NUR ---
Nutrition Update Mj Scale 13 noted. Pt admitted for pneumonia, ascites. Diet: cardiac BMI: 30.9 kg/m2 RD to follow per nutrition care standards.
--- NOTE | 2018-09-20 10:50 | NUR ---
CONSULTATION PAGED/CALLED Reason for Consultation: [] ABDOMINAL PAIN Person Who was Notified: [] SIDRA Consulting Physician: [] DR ROSAS DIVER TENDER FOR DR RUSSELL Hat Sizer Specialty: [] GI Ordering Physician: [] DR Yaneli CORNEJO
--- NOTE | 2018-09-20 11:32 | NUR ---
Consent done: Patient is alert, oriented x4, [place], family at bedside states the patient signing consent by herself. Got a consent for Paracentesis.
[2018-09-20] MEDS: OXYBUTYNIN CHLORIDE 5 MG TABLET PO SCH ×2 (12:00→21:11)
[2018-09-20] MEDS: INSULIN REGULAR, HUMAN 100 UNITS/ML, 10 ML VIAL (humuLIN R) SUBCUT PRN ×3 (12:10→21:24)
[2018-09-20] MEDS ORDERED: OXYBUTYNIN CHLORIDE 5 MG TABLET PO ONE (12:30)
--- NOTE | 2018-09-20 13:26 | NUR ---
PARACENTESIS done: Paracentesis is done at bed side with 2600 ml/ of Ascites Fluid. Patient tolerates well with T=98.7, WY=94,RR=18, GF=888/64.
--- NOTE | 2018-09-20 14:41 | NUR ---
Resting: Patient is sleeping comfortably, no sign of distress. RR=20, NM=94.
--- NOTE | 2018-09-20 16:56 | NUR ---
RN round: Patient is resting well, no sign of distress.
--- NOTE | 2018-09-20 18:43 | NUR ---
Closing note: Patient is stable, no sign of distress, tolerating diet well. Resting better after Paracentesis.
--- NOTE | 2018-09-20 19:50 | NUR ---
PM SHIFT ASSESSMENT Received patient lying in bed, aox4, vital signs stable, denies any pain or discomfort at this time, IV line intact and patent, IVF infusing, bandaid to right abdomen in place from paracentesis this pm, no active bleeding noted, plan of care discussed, patient verbalized understanding, compliant, oriented to use call light for nurse assistance, safety and fall precautions in place, will monitor.
[2018-09-20] MEDS: SIMVASTATIN 10 MG TABLET PO SCH (21:10)
[2018-09-20] MEDS: GABAPENTIN 300 MG CAPSULE PO SCH (21:10)
[2018-09-20] MEDS: PRAMIPEXOLE DI-HCL 0.25 MG TABLET PO SCH (21:11)
--- NOTE | 2018-09-20 22:23 | NUR ---
RN ROUNDS Patient resting quietly in bed, in no distress, due medications administered, blood sugar check this pm 260, covered with regular insulin sliding scale. Incontinence care provided, repositioned and turned with pillow support, call light within reach, will monitor.
--- NOTE | 2018-09-21 00:06 | NUR ---
RN ROUNDS Patient resting quietly in bed, in no distress, remains on room air, vital signs stable. Due antibiotics administered, call light within reach, bed alarm on, will monitor.
[2018-09-21 01:11] VITALS: BP_SYST 124
--- NOTE | 2018-09-21 02:12 | NUR ---
RN ROUNDS Patient asleep, breathing even and unlabored. Call light within reach, bed alarm on, will monitor.
[2018-09-21] MEDS: PIPERACILLIN/TAZO 3.375 GM in NS 50 ML IV SCH ×4 (02:42→20:23)
--- NOTE | 2018-09-21 04:16 | NUR ---
RN ROUNDS Patient continues to sleep, breathing even and unlabored. Due antibiotics administered, call light within reach, bed alarm on, will monitor.
[2018-09-21] MEDS: FAMOTIDINE 20 MG TABLET PO SCH (06:08)
[2018-09-21] MEDS: INSULIN REGULAR, HUMAN 100 UNITS/ML, 10 ML VIAL (humuLIN R) SUBCUT PRN ×4 (06:09→20:27)
--- NOTE | 2018-09-21 06:25 | NUR ---
RN ROUNDS Patient resting quietly in bed, in no distress, denies any pain at this time. Due medications administered, blood sugar check this am 196, covered with regular insulin sliding scale. Incontinence care provided, repositioned and turned with pillow support, foam dressing applied to bilateral lower leg wounds and left forearm. BLE elevated with pillow support. Call light within reach, safety measures maintained, will monitor until report given to am nurse.
--- NOTE | 2018-09-21 07:23 | NUR ---
OPENING NOTE PT IN BED AWAKE, ALERT, NO DISTRESS, REORIENTED TO CALL LIGHT USE, BED ALARM IN PLACE WITH BED IN THE LOWEST POSITION.
[2018-09-21 08:07] VITALS: BP_SYST 105
[2018-09-21] MEDS: DOCUSATE SODIUM 100 MG CAPSULE PO SCH ×2 (08:27→20:22)
[2018-09-21] MEDS: METOPROLOL TARTRATE 25 MG TABLET PO SCH ×2 (08:30→20:22)
[2018-09-21] MEDS: DIGOXIN 0.125 MG TABLET PO SCH (08:30)
[2018-09-21] MEDS: OXYBUTYNIN CHLORIDE 5 MG TABLET PO SCH ×2 (08:30→20:22)
[2018-09-21] MEDS: FUROSEMIDE 80 MG TABLET PO SCH (08:31)
[2018-09-21] MEDS: DILTIAZEM HCL 120 MG CAP.SR.24H PO SCH (08:31)
--- NOTE | 2018-09-21 08:32 | NUR ---
AM MEDS MORNING MEDS GIVE, PT TOLERATED WELL, PT HAS LOW APPETITE STATED SHE ONLY WANTS TO BEATA Addendum: 09/21/18 at 0835 by Maryjane Villatoro RN DRINK MILK. SAFETY PRECAUTIONS MAINTAINED.
[2018-09-21 09:00] LABS: ANION GAP 8 (5-15); CALCIUM 7.7 mg/dL (8.4-11.0); CHLORIDE 105 mmol/L (98-107); CREATININE 1.27 mg/dL (0.55-1.30); GLUCOSE 201 mg/dL (70-99); POTASSIUM 4.2 mmol/L (3.5-5.1); SODIUM SERUM 138 mmol/L (136-145); UREA NITROGEN, BLOOD 54 mg/dL (8-21)
[2018-09-21 09:05] LABS: ALANINE AMINOTRANSFERASE 21 U/L (12-78); ALBUMIN 1.7 g/dL (3.4-4.8); ASPARTATE AMINOTRANSFERASE 17 U/L (10-37); TOTAL BILIRUBIN 0.9 mg/dL (0.0-1.0)
--- NOTE | 2018-09-21 10:27 | NUR ---
pt in bed, denies any shortness of breath,chest pain 02 sat @ 96%. safety maintained.
[2018-09-21 12:02] VITALS: BP_SYST 119
--- NOTE | 2018-09-21 14:21 | NUR ---
IVPB ZOSYN GIVEN AT THIS TIME. PT IN BED AWAKE WATCHING TV, NO DISTRESS. SAFETY MAINTAINED.
[2018-09-21 16:02] VITALS: BP_SYST 107
--- NOTE | 2018-09-21 16:30 | NUR ---
pt in bed awake, no distress, family at beside
[2018-09-21 18:41] LABS: INR 1.5 (0.8-1.2); PROTHROMBIN TIME 14.8 SECS (9.5-12.5)
[2018-09-21 18:46] LABS: TOTAL IRON BIND. CAPACITY 214 ug/dL (250-450)
--- NOTE | 2018-09-21 18:49 | NUR ---
closing note all needs met through shift, safety maintained, will endorse care to shift stacker.
--- NOTE | 2018-09-21 19:33 | NUR ---
Opening notes Received report. Patient resting comfortably in bed. No signs of distress noted. Breathing is even and unlabored. No needs at this time. IV is patent and intact. Call light is with the patient. Safety precautions in place.
[2018-09-21 20:00] VITALS: BP_SYST 114
[2018-09-21] MEDS: PRAMIPEXOLE DI-HCL 0.25 MG TABLET PO SCH (20:18)
[2018-09-21] MEDS: SIMVASTATIN 10 MG TABLET PO SCH (20:22)
[2018-09-21] MEDS: GABAPENTIN 300 MG CAPSULE PO SCH (20:22)
[2018-09-21] MEDS: ACETAMINOPHEN 325 MG TABLET PO PRN (20:23)
--- NOTE | 2018-09-21 20:48 | NUR ---
Medications Scheduled medications given. Patient complain of 3/10 headache. PRN pain med given. Educated the action and side effects of medications. Patient verbalized understanding and tolerated well. No signs of allergic reaction. Audible wheezing heard. Called respiratory for breathing treatment.
--- NOTE | 2018-09-21 22:30 | NUR ---
Hygiene care Patient is incontinent. Hygiene care provided. Changed linen and gown. Repositioned patient to comfort. No other needs at this time. Call light is with the patient. Safety precautions in place.
[2018-09-21] MEDS: AZITHROMYCIN 500 MG in NS 250 ML IV SCH (23:24)
--- NOTE | 2018-09-21 23:35 | NUR ---
Medications Scheduled antibiotics given and infusing well. No signs of allergic reaction noted. Breathing is even and unlabored. No needs at this time. Call light with the patient. Safety precautions in place.
[2018-09-22 01:07] VITALS: BP_SYST 102
--- NOTE | 2018-09-22 01:54 | NUR ---
Sleeping Patient sleeping in bed. No signs of distress noted. Breathing is even and unlabored. IV is patent and intact. Call light with the patient. Safety precautions in place.
[2018-09-22] MEDS: PIPERACILLIN/TAZO 3.375 GM in NS 50 ML IV SCH ×4 (02:12→21:12)
--- NOTE | 2018-09-22 02:30 | NUR ---
IV antibiotics/Dressing change IV antibiotics hung. No signs of allergic reaction noted. Dressing change to bilateral lower extremities, left forearm, left buttocks, and left back. Patient tolerated well. No signs of distress noted. Call light with the patient. Safety precautions in place. Addendum: 09/22/18 at 0340 by Latoya Belle RN Incontinence care provided at this time. Patient repositioned for comfort.
--- NOTE | 2018-09-22 04:30 | NUR ---
Sleeping Patient sleeping. No signs of distress noted. Breathing is even and unlabored. Call light with the patient. Safety precautions in place.
[2018-09-22] MEDS: FAMOTIDINE 20 MG TABLET PO SCH (06:21)
[2018-09-22] MEDS: INSULIN REGULAR, HUMAN 100 UNITS/ML, 10 ML VIAL (humuLIN R) SUBCUT PRN ×4 (06:25→21:10)
--- NOTE | 2018-09-22 06:39 | NUR ---
Closing notes Patient resting in bed. No signs of distress noted. Breathing is even and unlabored. Iv patent and intact. Accucheck 209. Insulin given per sliding scale. All needs met throughout the shift. Call light with the patient. Safety precautions in place. Will endorse care to day shift RN.
--- NOTE | 2018-09-22 07:15 | NUR ---
Opening Note: Patient in bed resting. Patient denies pain and discomfort. Breathing is even and unlabored with no distress noted. IV patent and intact. Safety precautions in place; bed in lowest position, wheels locked, side rails x3, bed alarm activated and call light within reach. No needs at this time. Will continue to monitor.
[2018-09-22 07:50] VITALS: BP_SYST 130
[2018-09-22 08:38] LABS: BASOPHILS % (AUTO) 0.1 % (0.0-2.0); EOSINOPHILS # (AUTO) 0.1 K/uL (0.0-0.4); EOSINOPHILS % (AUTO) 0.9 % (0.0-4.0); HEMATOCRIT 34.7 % (36-48); HEMOGLOBIN 10.7 g/dL (12.0-16.0); LYMPHOCYTES # (AUTO) 0.5 K/uL (1.0-5.5); LYMPHOCYTES % (AUTO) 7.5 % (20.5-51.5); MEAN CORPUSCULAR HEMOGLOBIN 24 pg (27-31); MEAN CORPUSCULAR HGB CONC 31 % (32-36); MEAN CORPUSCULAR VOLUME 76 fL (79.0-98.0); MONOCYTES # (AUTO) 0.4 K/uL (0.0-1.0); MONOCYTES % (AUTO) 6.2 % (1.7-9.3); NEUTROPHILS # (AUTO) 5.8 K/uL (1.8-7.7); NEUTROPHILS % (AUTO) 85.3 % (40.0-70.0); PLATELET COUNT (AUTO) 324 K/uL (130-430); RED BLOOD CELL COUNT(AUTO) 4.55 MIL/uL (4.2-6.2); RED CELL DISTRIBUTION WIDTH 18.6 % (9.0-15.0); WHITE BLOOD COUNT (AUTO) 6.8 K/uL (4.8-10.8)
[2018-09-22 08:52] VITALS: BP_SYST 130
[2018-09-22] MEDS: METOPROLOL TARTRATE 25 MG TABLET PO SCH ×2 (08:56→21:13)
[2018-09-22] MEDS: OXYBUTYNIN CHLORIDE 5 MG TABLET PO SCH ×2 (08:56→21:23)
[2018-09-22] MEDS: DOCUSATE SODIUM 100 MG CAPSULE PO SCH ×2 (08:56→21:13)
[2018-09-22] MEDS: DIGOXIN 0.125 MG TABLET PO SCH (08:56)
[2018-09-22] MEDS: DILTIAZEM HCL 120 MG CAP.SR.24H PO SCH (08:57)
[2018-09-22] MEDS: FUROSEMIDE 80 MG TABLET PO SCH (08:57)
[2018-09-22 09:33] LABS: ALANINE AMINOTRANSFERASE 17 U/L (12-78); ALBUMIN 1.7 g/dL (3.4-4.8); ANION GAP 6 (5-15); ASPARTATE AMINOTRANSFERASE 12 U/L (10-37); CALCIUM 7.9 mg/dL (8.4-11.0); CHLORIDE 108 mmol/L (98-107); CREATININE 1.33 mg/dL (0.55-1.30); GLUCOSE 199 mg/dL (70-99); SODIUM SERUM 140 mmol/L (136-145); TOTAL BILIRUBIN 0.9 mg/dL (0.0-1.0); UREA NITROGEN, BLOOD 52 mg/dL (8-21)
--- NOTE | 2018-09-22 10:03 | NUR ---
Rounds: Patient in bed resting, repositioned for comfort. NO needs at this time. Will continue to monitor.
--- NOTE | 2018-09-22 10:34 | NUR ---
DC Plan Patient's daughter Leigha [phone] is requesting SNF for short term rehab at discharge. Patient ambulates 15-20 feet at best with a walker with assistance. Daughter's 1st preference is [facility]. Cassi Lyon, HCP [employer] [phone]
[2018-09-22 11:24] VITALS: BP_SYST 107
--- NOTE | 2018-09-22 11:52 | NUR ---
Rounds: Patient laying in bed resting, daughter at bedside. Patient denies pain and discomfort. Breathing is even and unlabored. Morning medications tolerated well. Safety precautions in place and call light within reach. Will continue to monitor.
--- NOTE | 2018-09-22 14:00 | NUR ---
Rounds: Patient in bed resting, repositioned for comfort. NO needs at this time. Will continue to monitor.
--- NOTE | 2018-09-22 14:32 | NUR ---
DC Plan Possible SNF discharge tomorrow/over the weekend. Daughter prefers [facility]. [facility] Room accepting patient to [facility] for this weekend. (Endorsed to HCP weekend Case Management.) Cassi Lyon, HCP [employer] [phone]
[2018-09-22 15:34] VITALS: BP_SYST 115
--- NOTE | 2018-09-22 15:45 | NUR ---
WOUND EVALUATION: Wound Consult received from Dr. Justice. Thank you, Dr. Justice, for the consult. Patient received in a Sherrard Bed with an Atmos-Air 9000 mattress, awake, alert, and oriented. Patient is unable to turn independently. Mj Score is a 15. Past Medical History: Coronary artery disease, congestive heart failure, hypertension, hyperlipidemia, COPD. Patient was admitted for constant diffuse abdominal pain for the past 4 days, and with bilateral pneumonia. Recent Labs: Chloride 108, BUN 52, creatinine 1.33, glucose 199, calcium 7.9, alkaline phosphatase 127, albumin 1.7, PT 14.8, INR 1.5. Microbiology: Blood culture results �2 in progress. Intrinsic factors that delay wound healing: COPD, pneumonia, coronary artery disease, hyperglycemia, hypoalbuminemia. Extrinsic factors that delay wound healing: Very limited mobility. Wound Assessment: 1. Right rodriguez: Wound, present on admission. Wound bed has 80% yellow tissue, 15% black tissue, 5% red tissue. No odor, scant yellow purulent drainage. Periwound intact, blanchable pink. Measures 7.3 cm x 1.3 cm. 2. Left mid Rodriguez: Wound, present on admission. Wound bed has 100% yellow slough. No odor, scant yellow purulent drainage. Periwound blanchable pink. Wound measures 1.2 cm x 1.2 cm. 3. Left anterior lateral rodriguez: Wound, present on admission. Wound bed has 95% yellow slough, 5% brown slough. No odor, scant yellow purulent drainage. Periwound white. Wound measures 2.9 cm x 1.2 cm x 0.1 cm. 4. Left lateral lower extremity, superior to wound 3: Abrasion, present on admission. Wound bed has 100% black scab. No odor, scant dark red drainage. Periwound intact. Wound measures 3.7 cm x 0.9 cm. Recommend: Cleanse wounds with normal saline. Apply moisture barrier cream to tracey-wounds. Apply Venelex ointment to wound beds. Cover with foam dressings. Perform wound care daily, and as needed for dressing soiling or dislodgement. 5. Left lateral forearm: Skin tear, present on admission. Wound has 80% yellow dried tissue, 20% black dried tissue. Yellow residual skin present on 50% of wound. Wound measures 1.2 cm x 2.5 cm. Recommend: Cleanse site with normal saline, pat dry. Apply nonadhesive foam dressing to site. Wrap with Adrian wrap. Perform site care daily, and as needed for dressing soiling or dislodgment. 6. Left lateral mid trunk: Skin tear, present on admission. Wound bed has 100% red tissue. No odor, no drainage. Periwound intact. Wound measures 1.4 cm CM by 0.8 cm. Recommend: Cleanse wound with normal saline. Apply moisture barrier cream to tracey-wound. Apply Venelex ointment to wound bed. Cover with foam dressing. Perform wound care daily, and as needed for dressing soiling or dislodgement. 7. Left lateral upper pelvic area: Large area of light purple ecchymosis, present on admission. Recommend: No dressing needed. Continue to monitor site for worsening condition. Do not place patient on involved area. 8. Sacral-Coccygeal area: Reopened scar tissue, present on admission. Wound bed has 100% dark red color. No odor, no drainage. Periwound and surrounding tissue has dull red erythema and dark discoloration. Wound measures 0.4 cm x 0.2 cm. Recommend: Cleanse wound with normal saline. Apply moisture barrier cream to tracey-wound and erythematous/pink surrounding tissue. Apply Venelex ointment to open wound bed. Cover with Sacral foam dressing. Perform wound care daily, and as needed for dressing soiling or dislodgement. 9. Left buttock, left lateral to ischial tuberosity: Healing stage III pressure ulcer, present on admission. Wound bed has 95% yellow slough, 5% dull red tissue. No odor, no drainage. Periwound intact. Wound measures 1.0 cm x 1.1 cm x 0.3 cm. Recommend: Cleanse wound with normal saline. Apply moisture barrier cream to tracey-wound. Apply Venelex ointment to wound bed. Cover with Sacral foam dressing. Perform wound care daily, and as needed for dressing soiling or dislodgement. 10. Left lateral heel: Chronic wound, present on admission. Wound bed has 100% dark red tissue. No odor, no drainage. Periwound intact. Wound measures 0.1 cm x 0.2 cm. Surrounding tissue has yellow, dry, flaky skin. Entire site including wound measures 1.2 cm by 2.0 cm. Recommend: Cleanse wound with normal saline. Apply moisture barrier cream to tracey-wound. Apply Venelex ointment to wound bed. Cover with foam dressing. Perform wound care daily, and as needed for dressing soiling or dislodgement. 11. Left lateral foot, lateral aspect: Blanchable erythema, present on admission. 12. Right lateral foot, lateral aspect: Blanchable erythema, present on admission. Recommend:Offload, elevate and float bilateral heels with one pillow lengthwise under each extremity at all times. Do not allow any erythematous portion or any portion of feet to touch bed or other surfaces at any time. 13. Right great toe: Chronic wound, present on admission. Wound bed has 100% black eschar. No odor, no drainage. Periwound intact. Dry, stable. Wound measures 0.4 cm x 0.4 cm. 14. Right fourth toe: Chronic wound, present on admission. Wound bed has 100% black eschar. No odor, no drainage. Periwound intact. Dry, stable. Wound measures 1.0 cm x 0.7 cm. 15. Right fifth toe: Chronic wound, present on admission. Wound bed has 100% brown eschar. No odor, no drainage. Periwound intact. Dry, stable. Wound measures 0.7 cm x 0.4 cm. 16. Left medial great toe: Chronic wound, present on admission. Wound bed has 100% brown eschar. No odor, no drainage. Periwound intact. Dry, stable. Wound measures 0.3 cm x 0.3 cm. 17. Second toe: Chronic wound, present on admission. Wound bed has 100% brown eschar. No odor, no drainage. Periwound intact. Dry, stable. Wound measures 0.7 cm x 0.4 cm. 18. Left fourth toe: Chronic wound, present on admission. Wound bed has 100% black eschar. No odor, no drainage. Periwound intact. Dry, stable. Wound measures 0.8 cm x 0.5 cm. 19. Lateral fifth toe: Chronic wound, present on admission. Wound bed has 100% black eschar. No odor, no drainage. Periwound intact. Dry, stable. Wound measures 0.7 cm x 0.4 cm. Recommend: [place] toes with Betadine daily, allow to air dry. No dressings needed, Continue to monitor sites every shift. Contact wound care nurse if sites open or drain. Also recommend: Reposition patient every 2 hours with pillow support and off-load pressure areas with pillows for pressure re-distribution. Offload, elevate and float bilateral heels with one pillow lengthwise under each extremity at all times. Do not allow any erythematous portion or any portion of feet to touch bed or other surfaces at any time. Perform skin care and monitor skin integrity Q shift. Use moisture barrier cream on buttocks and other moisture susceptible areas QID and as needed for soiling. Place patient on a low air-loss mattress.
--- NOTE | 2018-09-22 16:05 | NUR ---
Rounds: Patient laying in bed resting. Patient denies pain and discomfort. Breathing is even and unlabored. Patient repositioned. Safety precautions in place and call light within reach. Will continue to monitor.
[2018-09-22 16:21] LABS: APPEARANCE,SPUN,BODY FLUID CLEAR (CLEAR); BF APPEARANCE UNSPUN BLOODY (CLEAR); BODY FLUID COLOR YELLOW (LT YELLOW); BODY FLUID TOTAL VOLUME 700 mL; LYMPHOCYTES, BODY FLUID 12 %; NEUTROPHIL, BODY FLUID 88 %; RBC, BODY FLUID 1980 /uL; SOURCE/TYPE ,BODY FLUID ASCITES; WBC, BODY FLUID 1193 /uL
[2018-09-22] MEDS ORDERED: BALSAM PERU/CASTOR OIL 60 GM OINT...G. TP ONE (17:00)
--- NOTE | 2018-09-22 18:00 | NUR ---
Wound Care: Wound care done and charted, see shift assessment documentation.
--- NOTE | 2018-09-22 18:44 | NUR ---
Closing Note: Patient in bed resting. Patient denies pain and discomfort. Breathing is even and unlabored with no distress noted. IV patent and intact. Safety precautions in place; bed in lowest position, wheels locked, side rails x3, bed alarm activated and call light within reach. All needs met. Will endorse plan of care to NOC, nurse.
--- NOTE | 2018-09-22 19:05 | NUR ---
OPENING NOTES RECEIVED PATIENT IN BED AWAKE BUT SLEEPY. DENIES PAIN AT THIS TIME. BREATHING UNLABORED ON ROOM AIR. IV LINE TO RT HAND INTACT. PLAN OF CARE REVIEWED WITH PATIENT. PLACED CALL LIGHT WITH IN EASY REACH. BED IN LOWEST LOCKED POSITION WITH ALARM ON.
[2018-09-22 21:00] VITALS: BP_SYST 117
[2018-09-22] MEDS: SIMVASTATIN 10 MG TABLET PO SCH (21:14)
[2018-09-22] MEDS: GABAPENTIN 300 MG CAPSULE PO SCH (21:14)
[2018-09-22] MEDS: PRAMIPEXOLE DI-HCL 0.25 MG TABLET PO SCH (21:15)
--- NOTE | 2018-09-22 21:37 | NUR ---
MED PASS PATIENT DUE MEDICATIONS GIVEN AND TOLERATED. ASPIRATION PRECAUTION OBSERVED.
[2018-09-22 21:51] LABS: BODY FLUID GLUCOSE 236 mg/dL
[2018-09-22 21:52] LABS: BODY FLUID TOTAL PROTEIN 3.3 g/dL
--- NOTE | 2018-09-22 21:55 | NUR ---
AIR MATTRESS PATIENT BED MATTRESS CHANGED TO AIR MATTRESS FOR WOUND MANAGEMENT.
[2018-09-23] MEDS: AZITHROMYCIN 500 MG in NS 250 ML IV SCH (00:08)
--- NOTE | 2018-09-23 00:08 | NUR ---
ATB DUE ANTIBIOTIC INFUSED. IV LINE INTACT AND PATENT.
[2018-09-23 01:13] VITALS: BP_SYST 104
--- NOTE | 2018-09-23 02:34 | NUR ---
ROUNDS PATIENT RESTING IN BED. NO DISTRESS NOTED. PATIENT KEPT WARMED WITH BLANKETS. CALL LIGHT WITH IN EASY REACH.
[2018-09-23] MEDS: PIPERACILLIN/TAZO 3.375 GM in NS 50 ML IV SCH ×4 (03:20→21:45)
[2018-09-23] MEDS: INSULIN REGULAR, HUMAN 100 UNITS/ML, 10 ML VIAL (humuLIN R) SUBCUT PRN ×4 (06:24→22:04)
[2018-09-23] MEDS: FAMOTIDINE 20 MG TABLET PO SCH (06:26)
--- NOTE | 2018-09-23 07:03 | NUR ---
CLOSING NOTES PATIENT RESTING IN BED. NO DISTRESS NOTED. IV LINE INTACT. PATIENT NEEDS ATTENDED. CALL LIGHT WITH IN REACH. BED IN LOWEST LOCKED POSITION.
--- NOTE | 2018-09-23 07:34 | NUR ---
opening note pt awake, no distress noted. pt reoriented to call light use, bed alarm in place with bed in the lowest position.
[2018-09-23 08:03] VITALS: BP_SYST 113
[2018-09-23 08:06] LABS: AFP, TUMOR MARKER 2.5 ng/mL (0.0-8.3)
[2018-09-23] MEDS: DIGOXIN 0.125 MG TABLET PO SCH (08:38)
[2018-09-23] MEDS: OXYBUTYNIN CHLORIDE 5 MG TABLET PO SCH ×2 (08:38→21:45)
[2018-09-23] MEDS: DOCUSATE SODIUM 100 MG CAPSULE PO SCH ×2 (08:38→21:45)
[2018-09-23] MEDS: DILTIAZEM HCL 120 MG CAP.SR.24H PO SCH (08:40)
[2018-09-23] MEDS: METOPROLOL TARTRATE 25 MG TABLET PO SCH ×3 (08:41→21:46)
[2018-09-23] MEDS: FUROSEMIDE 80 MG TABLET PO SCH (08:43)
--- NOTE | 2018-09-23 08:44 | NUR ---
morning meds given, pt tolerated well, no distress, safety maintained.
[2018-09-23] MEDS ORDERED: MILK OF MAGNESIA 30 ML UDC PO ONE (09:45)
[2018-09-23] MEDS: SPIRONOLACTONE 25 MG TABLET (ALDACTONE) PO SCH (09:54)
[2018-09-23 10:06] LABS: HEPATITIS A AB, IgM Negative (Negative); HEPATITIS B CORE AB, IgM Negative (Negative); HEPATITIS B SURFACE AG Negative (Negative)
[2018-09-23 11:33] VITALS: BP_SYST 121
--- NOTE | 2018-09-23 11:33 | NUR ---
pt resting, eyes closed- equal chest rise noted in no distress. safety maintained.
--- NOTE | 2018-09-23 13:47 | NUR ---
PT AWAKE , NO DISTRESS NOTED. SAFETY MAINTAINED.
--- NOTE | 2018-09-23 14:06 | NUR ---
weight reducing technician at bedside at this time.
[2018-09-23 15:35] VITALS: BP_SYST 108
--- NOTE | 2018-09-23 16:38 | NUR ---
pt is resting no distress, safety precautions maintained
--- NOTE | 2018-09-23 17:04 | NUR ---
Dietitian Recommendations Arron BID and ProSource BID supplementation along with food for wound healing. Please refer to Nutrition Assessment for details. CRISTINA MARK
--- NOTE | 2018-09-23 18:44 | NUR ---
CLOSING NOTE ALL NEEDS MET THROUGH SHIFT, SAFETY MAINTAINED, WILL ENDORSE CARE TO TRANSMISSION WORKER.
[2018-09-23 21:05] VITALS: BP_SYST 125
[2018-09-23 21:16] LABS: ANTI NUCLEAR AB WITH REFLEX Positive (Negative)
[2018-09-23] MEDS: GABAPENTIN 300 MG CAPSULE PO SCH (21:45)
[2018-09-23] MEDS: SIMVASTATIN 10 MG TABLET PO SCH (21:45)
[2018-09-23] MEDS: PRAMIPEXOLE DI-HCL 0.25 MG TABLET PO SCH (21:45)
--- NOTE | 2018-09-24 | NUR ---
Turning & Repositioning off loading with pillows kept clean & dry as needed position change on schedule tolerated .
[2018-09-24] MEDS: AZITHROMYCIN 500 MG in NS 250 ML IV SCH (01:10)
[2018-09-24] MEDS: PIPERACILLIN/TAZO 3.375 GM in NS 50 ML IV SCH ×4 (03:33→22:23)
--- NOTE | 2018-09-24 03:40 | NUR ---
WOUND CARE IMPLEMENTED TO SACRAL , WOUND BED 80 % PINK 20 % RED LUCIAN WOUND , provided as ordered tolerated .
--- NOTE | 2018-09-24 03:41 | NUR ---
WOUND CARE LEFT BUTTOCK 80 % PINK 20 % PINK TO RED , as ordered optifoam dsd applied tolerated .
[2018-09-24 03:49] VITALS: BP_SYST 108
--- NOTE | 2018-09-24 05:09 | NUR ---
Hourly Rounding patient resting HOB elevated on room air 02 SAT 96 % Respirations regular also unlabored .
[2018-09-24] MEDS: FAMOTIDINE 20 MG TABLET PO SCH (06:25)
[2018-09-24] MEDS: INSULIN REGULAR, HUMAN 100 UNITS/ML, 10 ML VIAL (humuLIN R) SUBCUT PRN ×4 (06:32→22:27)
--- NOTE | 2018-09-24 07:12 | NUR ---
opening note pt in bed eyes closed, equal chest rise noted. call light visibly within reach, bed alarm in place with bed in the lowest position.
[2018-09-24 08:00] VITALS: BP_SYST 126
[2018-09-24] MEDS: OXYBUTYNIN CHLORIDE 5 MG TABLET PO SCH ×2 (08:29→22:24)
[2018-09-24] MEDS: DILTIAZEM HCL 120 MG CAP.SR.24H PO SCH (08:29)
[2018-09-24] MEDS: SPIRONOLACTONE 25 MG TABLET (ALDACTONE) PO SCH (08:29)
[2018-09-24] MEDS: METOPROLOL TARTRATE 25 MG TABLET PO SCH ×2 (08:30→22:25)
[2018-09-24] MEDS: DOCUSATE SODIUM 100 MG CAPSULE PO SCH ×2 (08:30→22:24)
[2018-09-24] MEDS: DIGOXIN 0.125 MG TABLET PO SCH (08:30)
[2018-09-24] MEDS: FUROSEMIDE 80 MG TABLET PO SCH (08:31)
[2018-09-24 08:34] LABS: INR 1.3 (0.8-1.2)
--- NOTE | 2018-09-24 08:34 | NUR ---
am meds morning meds given, pt tolerated well. pt in no distress, safety maintained.
[2018-09-24 08:38] LABS: ALANINE AMINOTRANSFERASE 11 U/L (12-78); ALBUMIN 1.5 g/dL (3.4-4.8); ANION GAP 5 (5-15); ASPARTATE AMINOTRANSFERASE 14 U/L (10-37); CHLORIDE 110 mmol/L (98-107); GLUCOSE 222 mg/dL (70-99); SODIUM SERUM 142 mmol/L (136-145); TOTAL BILIRUBIN 0.8 mg/dL (0.0-1.0); UREA NITROGEN, BLOOD 40 mg/dL (8-21)
[2018-09-24 08:42] LABS: EOSINOPHILS % (AUTO) 0.7 % (0.0-4.0); HEMATOCRIT 34.8 % (36-48); HEMOGLOBIN 10.7 g/dL (12.0-16.0); LYMPHOCYTES # (AUTO) 0.5 K/uL (1.0-5.5); LYMPHOCYTES % (AUTO) 8.3 % (20.5-51.5); MEAN CORPUSCULAR HEMOGLOBIN 24 pg (27-31); MEAN CORPUSCULAR HGB CONC 31 % (32-36); MEAN CORPUSCULAR VOLUME 76 fL (79.0-98.0); MONOCYTES # (AUTO) 0.4 K/uL (0.0-1.0); NEUTROPHILS # (AUTO) 5.3 K/uL (1.8-7.7); PLATELET COUNT (AUTO) 330 K/uL (130-430); RED BLOOD CELL COUNT(AUTO) 4.55 MIL/uL (4.2-6.2); RED CELL DISTRIBUTION WIDTH 17.6 % (9.0-15.0); WHITE BLOOD COUNT (AUTO) 6.2 K/uL (4.8-10.8)
[2018-09-24] MEDS: BALSAM PERU/CASTOR OIL 60 GM OINT...G. TP SCH ×2 (09:00→16:26)
[2018-09-24] MEDS: cefTRIAXone 1 GM in D5W 50 ML IV SCH (09:47)
--- NOTE | 2018-09-24 09:50 | NUR ---
pt in bed awake, in no distress safety maintained.
--- NOTE | 2018-09-24 11:24 | NUR ---
6 units regular insulin given for blood sugar 256, pt in no distress, safety maintained
[2018-09-24 11:39] VITALS: BP_SYST 104
--- NOTE | 2018-09-24 14:43 | NUR ---
pt awake, no distress, ivpb zosyn hung at this time, safety maintained.,
--- NOTE | 2018-09-24 15:46 | NUR ---
PT IN BED EYES CLOSED- EQUAL CHEST RISE NOTED. SAFETY MAINTAINED.
[2018-09-24 16:38] VITALS: BP_SYST 114
--- NOTE | 2018-09-24 18:07 | NUR ---
pt in bed awake, no distress , safety maintained.
--- NOTE | 2018-09-24 18:47 | NUR ---
closing note all needs met through shift, safety maintained, will endorse care to restaurant shift leader.
[2018-09-24 19:48] VITALS: BP_SYST 119
--- NOTE | 2018-09-24 20:30 | NUR ---
Patient awake verbally responsive HOB elevated assist for position change , on two hour schedule off loading with pillows comfort measures implemented kept clean also dry as needed .
[2018-09-24] MEDS: SIMVASTATIN 10 MG TABLET PO SCH (22:24)
[2018-09-24] MEDS: GABAPENTIN 300 MG CAPSULE PO SCH (22:24)
[2018-09-24] MEDS: PRAMIPEXOLE DI-HCL 0.25 MG TABLET PO SCH (22:24)
--- NOTE | 2018-09-25 | NUR ---
WOUND CARE sacral implemented WOUND BED 80 % PINK 20 % SUERO / RED LUCIAN WOUND OPTIFOAM SDS APPLIED , TOLERATED .
[2018-09-25 00:29] VITALS: BP_SYST 116
[2018-09-25] MEDS: AZITHROMYCIN 500 MG in NS 250 ML IV SCH (03:27)
[2018-09-25] MEDS: PIPERACILLIN/TAZO 3.375 GM in NS 50 ML IV SCH (03:27)
--- NOTE | 2018-09-25 03:29 | NUR ---
HOURLY Rounding patient awake assist encourage position change partial bed bath given kept clean & dry as needed .
--- NOTE | 2018-09-25 03:34 | NUR ---
WOUND CARE LEFT BUTTOCKS AREA WOUND BED 80 % PINK LUCIAN WOUND 20 % YELLOW / RED discoloration .
--- NOTE | 2018-09-25 04:46 | NUR ---
BED BATH GIVEN PATIENT INCONTINENT OF BOWEL & URINE , KEPT CLEAN & DRY NEEDED .
[2018-09-25] MEDS: FAMOTIDINE 20 MG TABLET PO SCH (06:28)
[2018-09-25] MEDS: INSULIN REGULAR, HUMAN 100 UNITS/ML, 10 ML VIAL (humuLIN R) SUBCUT PRN ×3 (06:30→17:56)
[2018-09-25 08:00] VITALS: BP_SYST 118
--- NOTE | 2018-09-25 08:00 | NUR ---
initial notes rec patient asllep arousable to stimuli. with periods of confusion. bed alarm is on and side rails up and locked. call light within reached and knows when to call for for assistance. denies pain at this time.
[2018-09-25 08:15] LABS: ALANINE AMINOTRANSFERASE 10 U/L (12-78); ALBUMIN 1.5 g/dL (3.4-4.8); ANION GAP 1 (5-15); ASPARTATE AMINOTRANSFERASE 12 U/L (10-37); CALCIUM 7.9 mg/dL (8.4-11.0); CHLORIDE 110 mmol/L (98-107); CREATININE 1.07 mg/dL (0.55-1.30); GLUCOSE 252 mg/dL (70-99); POTASSIUM 4.1 mmol/L (3.5-5.1); SODIUM SERUM 141 mmol/L (136-145); TOTAL BILIRUBIN 0.7 mg/dL (0.0-1.0); UREA NITROGEN, BLOOD 35 mg/dL (8-21)
[2018-09-25] MEDS: cefTRIAXone 1 GM in D5W 50 ML IV SCH (09:37)
[2018-09-25] MEDS: SPIRONOLACTONE 25 MG TABLET (ALDACTONE) PO SCH (09:38)
[2018-09-25] MEDS: FUROSEMIDE 80 MG TABLET PO SCH (09:38)
[2018-09-25] MEDS: DOCUSATE SODIUM 100 MG CAPSULE PO SCH (09:38)
[2018-09-25] MEDS: METOPROLOL TARTRATE 25 MG TABLET PO SCH (09:39)
[2018-09-25] MEDS: BALSAM PERU/CASTOR OIL 60 GM OINT...G. TP SCH (09:40)
[2018-09-25] MEDS: DIGOXIN 0.125 MG TABLET PO SCH (09:41)
[2018-09-25] MEDS: OXYBUTYNIN CHLORIDE 5 MG TABLET PO SCH (09:42)
[2018-09-25] MEDS: DILTIAZEM HCL 120 MG CAP.SR.24H PO SCH (09:45)
[2018-09-25] MEDS ORDERED: LEVOFLOXACIN 500 MG TABLET PO SCH (10:00)
--- NOTE | 2018-09-25 10:00 | NUR ---
rounds seen by dr galicia and dr banerjee. follow up cytology specimen with jazlyn in pathology and stated available in am.
--- NOTE | 2018-09-25 12:00 | NUR ---
rounds sleeps at intervals. no sob noted. bed to the lowest position and side rails up and locked .
[2018-09-25 12:32] VITALS: BP_SYST 126
--- NOTE | 2018-09-25 15:41 | NUR ---
patient has room at [facility] room 107B, when ready can call [facility] med ambulance auth [id number]
--- NOTE | 2018-09-25 16:00 | NUR ---
rounds sleeps at intervals. spoke with patients daughter re questionaires of the mri. awaiting for dr banerjee to call that unable to do mri today and will have it done tomorrow.
[2018-09-25 16:45] VITALS: BP_SYST 124
--- NOTE | 2018-09-25 18:31 | NUR ---
closing notes spke with dr banerjee and want patient to be transferred tonight to [facility]. no sob noted. bed to the lowest position. will endorsed to night nurse re transfer.
--- NOTE | 2018-09-25 19:50 | NUR ---
Initial Note Received patient awake, alert but with confusion, talks to herself. No SOB noted. Denies any pain ot n/v at this time. Saline lock. Took photos of patient's wound-documented. Cleansed wound and applied new dressing. Elevated BLE with pillows. Repositioned. Skin care done. Kept clean, dry and comfortable.
--- NOTE | 2018-09-25 20:00 | NUR ---
[facility] I PAGED [facility] @ 1999 I SPOKE WITH JAIR ADAM SAID [facility] CONTACTED THEM SALT REFINER TIME IS @ 2049 THEY HAVE SAME BIRTHDAY, SAME FIRST NAME SAME DESTINATION IAIN CONNOLLY EXCEPT THAT THE PATIENT HAS A DIFFERENT LAST NAME JAIR TOLD ME TO CALL [facility] TO FIND OUT IF THE PATIENT HAS A DIFFERENT LAST NAME SO I CALLED CONSTRUCTION MANAGEMENT ASSISTANT MADELAINE @ [phone]. SHE CALLED [facility] TO CLARIFIED THE OTHER LAST NAME THE PATIENT HAS.
[2018-09-25 20:14] VITALS: BP_SYST 132
--- NOTE | 2018-09-25 20:15 | NUR ---
CATARINA: [facility] TELECOMMUNICATIONS ENGINEER CALLED ME BACK @ 2014 SHE TOLD ME SHE SPOKE WITH [facility] AND SHE DID CLARIFIED THE OTHER LAST NAME PATIENT USED ENDS BREAKAGE CLERK TIME WILL BE AT 2100
--- NOTE | 2018-09-25 20:40 | NUR ---
Ambulance Ambulance staff arrived. Report given to Anoop. MAURY'd saline lock. Medicated for left leg pain via oral, endorsed to ambulance staff. Patient is wearing her upper and lower dentures, ambulance staff aware. No SOB noted. No acute distress at this time.
[2018-09-25] MEDS: ACETAMINOPHEN 325 MG TABLET PO PRN (20:53)
--- NOTE | 2018-09-25 21:00 | NUR ---
Discharge Patient was transferred to a gurney via ambulance. Patient is not in distress upon discharge.
--- NOTE | 2018-09-25 22:05 | NUR ---
Notified dtr re DC Called Leigha Her, patient's daughter and notified her of the transfer to [facility].
--- NOTE | 2018-09-25 22:15 | NUR ---
Report to [facility] Given report to ASAD Otero from [facility].
[2018-09-26 02:06] LABS: CEA 4.4 ng/mL (0.0-4.7)
[2018-09-26 09:55] LABS: CANCER AG, 125 373.8 U/mL (0.0-38.1)
[2018-09-27 09:12] LABS: CERULOPLASMIN 41.8 mg/dL (19.0-39.0); FERRITIN 206 ng/mL (15-150)
[2018-10-16 11:43] LABS: ANTI-SMOOTH MUSCLE AB 83 Units (0-19)
== END 2018-09-25 20:55 | DRG 432 ==
LOC: SED 18:44 → STU 20:50 → SMU 09-21 08:39
PROVIDERS: ADMIT Internal Medicine; ATTEND Internal Medicine
PROC: 0W9G3ZZ Drainage of Peritoneal Cavity, Percutaneous Approach (ICD-10-PCS; principal; 2018-09-20)
DX: K70.31 Alcoholic cirrhosis of liver with ascites (principal); K65.2 Spontaneous bacterial peritonitis; J18.9 Pneumonia, unspecified organism; E43 Unspecified severe protein-calorie malnutrition; R65.10 Systemic inflammatory response syndrome (SIRS) of non-infectious origin without acute organ dysfunction; K72.90 Hepatic failure, unspecified without coma; E78.5 Hyperlipidemia, unspecified; I11.0 Hypertensive heart disease with heart failure; I50.9 Heart failure, unspecified; I25.10 Atherosclerotic heart disease of native coronary artery without angina pectoris; Z88.2 Allergy status to sulfonamides; Z88.9 Allergy status to unspecified drugs, medicaments and biological substances
CPT/HCPCS: 36415; 49083; 71045; 76700-TC; 80053; 80074; 80162-TC; 82042; 82105; 82140-TC; 82378; 82390; 82728; 82947-TC; 82962; 83516; 83540-TC; 83550-TC; 83605; 84157-TC; 84484; 85025; 85610-TC; 85730-TC; 86038; 86301; 86304; 87040-TC; 87081; 88108; 88305; 89051-TC; 89060-TC; 93005; 94640; 96365; 96368; 97110-GP; 97530-GP; 99285; C1729; G0378; G0482; J0456; J0696; J1815; J2543; J7030; J7050; J7060; J7613

== ENCOUNTER 2018-10-01 12:40 | Inpatient (IN) | payer BC, MEDICAID ==
[~2018-10-01] VITALS: Ht 165.1 cm; Wt 99.8 kg
[~2018-10-01 12:40] MED LIST changes: -ERTA1VIA2 IV; -[UNRECOGNIZED DRUG - CODE] IV
[2018-10-01 12:46] VITALS: BP_SYST 145
[2018-10-01] MEDS ORDERED: NACL 0.9% 1,000 ML IV ONE (13:01)
[2018-10-01] MEDS ORDERED: PANTOPRAZOLE SODIUM 40 MG/VIAL (PROTONIX) IVP ONE (13:15)
[2018-10-01] MEDS ORDERED: NS 1000 ML IV.SOLN IV ONE (13:15)
[2018-10-01] MEDS ORDERED: cefTRIAXone 1 GM IVPB PREMIX 50 ML IV ONE (13:15)
[2018-10-01 13:55] LABS: BASOPHILS % (AUTO) 0.2 % (0.0-2.0); EOSINOPHILS % (AUTO) 0.1 % (0.0-4.0); HEMATOCRIT 38.2 % (36-48); HEMOGLOBIN 11.8 g/dL (12.0-16.0); LYMPHOCYTES # (AUTO) 0.5 K/uL (1.0-5.5); LYMPHOCYTES % (AUTO) 5.8 % (20.5-51.5); MEAN CORPUSCULAR HEMOGLOBIN 23 pg (27-31); MEAN CORPUSCULAR HGB CONC 31 % (32-36); MEAN CORPUSCULAR VOLUME 75 fL (79.0-98.0); MONOCYTES # (AUTO) 0.4 K/uL (0.0-1.0); MONOCYTES % (AUTO) 4.7 % (1.7-9.3); NEUTROPHILS # (AUTO) 8.2 K/uL (1.8-7.7); NEUTROPHILS % (AUTO) 89.2 % (40.0-70.0); PLATELET COUNT (AUTO) 289 K/uL (130-430); RED BLOOD CELL COUNT(AUTO) 5.13 MIL/uL (4.2-6.2); RED CELL DISTRIBUTION WIDTH 18.3 % (9.0-15.0); WHITE BLOOD COUNT (AUTO) 9.1 K/uL (4.8-10.8)
[2018-10-01 14:06] LABS: ANION GAP 7 (5-15); CALCIUM 8.2 mg/dL (8.4-11.0); CHLORIDE 103 mmol/L (98-107); CREATININE 0.79 mg/dL (0.55-1.30); GLUCOSE 99 mg/dL (70-99); POTASSIUM 3.9 mmol/L (3.5-5.1); SODIUM SERUM 137 mmol/L (136-145); UREA NITROGEN, BLOOD 23 mg/dL (8-21)
[2018-10-01 14:10] LABS: ALBUMIN 1.7 g/dL (3.4-4.8); AMYLASE 65 U/L (0-100); ASPARTATE AMINOTRANSFERASE 20 U/L (10-37); LIPASE 251 U/L (73-393)
[2018-10-01 14:30] LABS: BILIRUBIN,URINE NEGATIVE (NEGATIVE); BLOOD, URINE 3+ (NEGATIVE); CLARITY/URINE CLEAR (CLEAR); COLOR,URINE YELLOW (YELLOW); GLUCOSE,URINE NEGATIVE (NEGATIVE); KETONES,URINE NEGATIVE (NEGATIVE); LEUKOCYTE ESTERASE ,URINE TRACE (NEGATIVE); NITRITE, URINE NEGATIVE (NEGATIVE); PH,URINE 5.5 (5.0-8.0); PROTEIN URINE TRACE (NEGATIVE); UROBILINOGEN,URINE 0.2 (0.2-1.0)
[2018-10-01 14:36] LABS: ALANINE AMINOTRANSFERASE 8 U/L (12-78)
[2018-10-01] MEDS ORDERED: SPIR25TA6 PO (14:42)
[2018-10-01] MEDS ORDERED: FLUT16SP16 NS (14:42)
[2018-10-01] MEDS ORDERED: FLEPED RC (14:42)
[2018-10-01] MEDS ORDERED: VITA-285 PO (14:42)
[2018-10-01 14:50] LABS: BACTERIA,URINE FEW /HPF (None Seen); MUCUS,URINE 1+ /LPF (None Seen)
[2018-10-01 15:20] LABS: INR 1.4 (0.8-1.2); PROTHROMBIN TIME 13.8 SECS (9.5-12.5)
[2018-10-01] MEDS ORDERED: FUROSEMIDE 20 MG/2 ML VIAL IVP ONE (15:45)
[2018-10-01] MEDS ORDERED: ACETAMINOPHEN 325 MG TABLET PO PRN (15:45)
[2018-10-01 16:25] VITALS: BP_SYST 125
[2018-10-01 16:48] VITALS: BP_SYST 125
[2018-10-01] MEDS ORDERED: NITROGLYCERIN 0.4 MG TAB.SUBL SL PRN (17:30)
[2018-10-01] MEDS ORDERED: ACETAMINOPHEN/CODEINE 300 MG-30 MG TABLET PO PRN (17:30)
[2018-10-01] MEDS ORDERED: LEVOFLOXACIN 250 MG/D5W 50 ML IV SCH (17:30)
[2018-10-01 17:51] VITALS: BP_SYST 125
[2018-10-01 17:57] LABS: BASOPHILS % (AUTO) 0.4 % (0.0-2.0); EOSINOPHILS % (AUTO) 0.1 % (0.0-4.0); HEMATOCRIT 35.1 % (36-48); HEMOGLOBIN 10.8 g/dL (12.0-16.0); LYMPHOCYTES # (AUTO) 0.5 K/uL (1.0-5.5); LYMPHOCYTES % (AUTO) 5.1 % (20.5-51.5); MEAN CORPUSCULAR HEMOGLOBIN 23 pg (27-31); MEAN CORPUSCULAR HGB CONC 31 % (32-36); MEAN CORPUSCULAR VOLUME 75 fL (79.0-98.0); MONOCYTES # (AUTO) 0.5 K/uL (0.0-1.0); MONOCYTES % (AUTO) 5.6 % (1.7-9.3); NEUTROPHILS # (AUTO) 8.4 K/uL (1.8-7.7); NEUTROPHILS % (AUTO) 88.8 % (40.0-70.0); PLATELET COUNT (AUTO) 269 K/uL (130-430); RED BLOOD CELL COUNT(AUTO) 4.69 MIL/uL (4.2-6.2); RED CELL DISTRIBUTION WIDTH 19.2 % (9.0-15.0); WHITE BLOOD COUNT (AUTO) 9.4 K/uL (4.8-10.8)
[2018-10-01] MEDS ORDERED: COMMUNICATION ORDER XX ONE (18:00)
[2018-10-01 18:06] LABS: ANION GAP 5 (5-15); CALCIUM 7.6 mg/dL (8.4-11.0); CHLORIDE 104 mmol/L (98-107); CREATININE 0.76 mg/dL (0.55-1.30); GLUCOSE 101 mg/dL (70-99); POTASSIUM 3.6 mmol/L (3.5-5.1); SODIUM SERUM 139 mmol/L (136-145); UREA NITROGEN, BLOOD 24 mg/dL (8-21)
[2018-10-01] MEDS ORDERED: INSULIN Lispro 100 UNITS/ML VIAL (humaLOG) SUBCUT SCH (18:45)
[2018-10-01 19:48] VITALS: BP_SYST 111
[2018-10-01] MEDS ORDERED: NS 250 ML IV.SOLN IV ONE (20:30)
[2018-10-01] MEDS ORDERED: NOREPINEPHRINE 4 MG/4 ML VIAL IV ONE (20:30)
[2018-10-01] MEDS ORDERED: metroNIDAZOLE 500 mg/NS 100 mL IVPB IV ONE (20:30)
[2018-10-01] MEDS ORDERED: BUPIVACAINE /PF 0.25% 30 ML VIAL INJ ONE (20:30)
[2018-10-01] MEDS ORDERED: SEVOFLURANE 15 MIN GAS INH ONE (20:30)
[2018-10-01] MEDS: INSULIN GLARGINE 100 UNITS/ML 10 ML VIAL SUBCUT SCH (21:00)
[2018-10-01] MEDS ORDERED: FUROSEMIDE 20 MG/2 ML VIAL IVP SCH (21:00)
[2018-10-01] MEDS ORDERED: LEVOFLOXACIN 250 MG/D5W 50 ML IV ONE (22:04)
[2018-10-01] MEDS: LEVOFLOXACIN 250 MG/D5W 50 ML IV SCH (22:40)
[2018-10-01] MEDS: SIMVASTATIN 10 MG TABLET PO SCH (22:41)
[2018-10-01] MEDS: GABAPENTIN 300 MG CAPSULE PO SCH (22:41)
[2018-10-01] MEDS: DOCUSATE SODIUM 100 MG CAPSULE PO SCH (22:41)
[2018-10-01] MEDS: PRAMIPEXOLE DI-HCL 0.25 MG TABLET PO SCH (22:41)
[2018-10-01] MEDS: METOPROLOL TARTRATE 25 MG TABLET PO SCH (22:45)
[2018-10-01] MEDS: INSULIN Lispro 100 UNITS/ML VIAL (humaLOG) SUBCUT SCH (22:49)
[2018-10-02 02:48] VITALS: BP_SYST 120
[2018-10-02 07:06] LABS: BASOPHILS % (AUTO) 0.1 % (0.0-2.0); EOSINOPHILS % (AUTO) 0.7 % (0.0-4.0); HEMATOCRIT 32.2 % (36-48); HEMOGLOBIN 10.2 g/dL (12.0-16.0); LYMPHOCYTES # (AUTO) 0.4 K/uL (1.0-5.5); LYMPHOCYTES % (AUTO) 5.1 % (20.5-51.5); MEAN CORPUSCULAR HEMOGLOBIN 24 pg (27-31); MEAN CORPUSCULAR HGB CONC 32 % (32-36); MEAN CORPUSCULAR VOLUME 74 fL (79.0-98.0); MONOCYTES # (AUTO) 0.3 K/uL (0.0-1.0); MONOCYTES % (AUTO) 4.9 % (1.7-9.3); NEUTROPHILS # (AUTO) 6.2 K/uL (1.8-7.7); NEUTROPHILS % (AUTO) 89.2 % (40.0-70.0); PLATELET COUNT (AUTO) 229 K/uL (130-430); RED BLOOD CELL COUNT(AUTO) 4.33 MIL/uL (4.2-6.2); RED CELL DISTRIBUTION WIDTH 18.5 % (9.0-15.0); WHITE BLOOD COUNT (AUTO) 6.9 K/uL (4.8-10.8)
[2018-10-02 08:00] VITALS: BP_SYST 107
[2018-10-02 08:12] LABS: ALANINE AMINOTRANSFERASE 8 U/L (12-78); ALBUMIN 1.4 g/dL (3.4-4.8); ANION GAP 4 (5-15); ASPARTATE AMINOTRANSFERASE 20 U/L (10-37); CALCIUM 7.6 mg/dL (8.4-11.0); CHLORIDE 104 mmol/L (98-107); CREATININE 0.74 mg/dL (0.55-1.30); DIGOXIN 0.7 ng/mL (0.80-2.00); GLUCOSE 128 mg/dL (70-99); POTASSIUM 3.6 mmol/L (3.5-5.1); SODIUM SERUM 137 mmol/L (136-145); TOTAL BILIRUBIN 1.2 mg/dL (0.0-1.0); UREA NITROGEN, BLOOD 23 mg/dL (8-21)
[2018-10-02] MEDS ORDERED: TOLTERODINE TARTRATE 2 MG TABLET(DETROL) PO SCH (09:00)
[2018-10-02] MEDS: METOPROLOL TARTRATE 25 MG TABLET PO SCH ×2 (09:00→21:22)
[2018-10-02] MEDS ORDERED: ONDANSETRON HCL 4 MG/2 ML VIAL IVP PRN (09:00)
[2018-10-02] MEDS: FUROSEMIDE 20 MG/2 ML VIAL IVP SCH ×2 (09:04→21:21)
[2018-10-02] MEDS: PANTOPRAZOLE SODIUM 40 MG/VIAL (PROTONIX) IVP SCH (09:04)
[2018-10-02] MEDS: DOCUSATE SODIUM 100 MG CAPSULE PO SCH ×2 (09:05→21:22)
[2018-10-02] MEDS: OXYBUTYNIN CHLORIDE 5 MG TABLET PO SCH ×2 (09:05→21:48)
[2018-10-02] MEDS: DIGOXIN 0.125 MG TABLET PO SCH (09:06)
[2018-10-02] MEDS: DILTIAZEM HCL 120 MG CAP.SR.24H PO SCH (09:06)
[2018-10-02] MEDS ORDERED: SPIRONOLACTONE 25 MG TABLET (ALDACTONE) PO ONE (10:30)
[2018-10-02] MEDS: ALBUTEROL SULFATE 0.083% 2.5 MG/3 ML VIAL.NEB INH PRN (11:13)
[2018-10-02 11:32] VITALS: BP_SYST 120
[2018-10-02 11:50] LABS: BILIRUBIN,URINE NEGATIVE (NEGATIVE); BLOOD, URINE 3+ (NEGATIVE); GLUCOSE,URINE NEGATIVE (NEGATIVE); KETONES,URINE NEGATIVE (NEGATIVE); LEUKOCYTE ESTERASE ,URINE 2+ (NEGATIVE); NITRITE, URINE NEGATIVE (NEGATIVE); PROTEIN URINE TRACE (NEGATIVE); UROBILINOGEN,URINE 0.2 (0.2-1.0)
[2018-10-02 11:58] LABS: CLARITY/URINE HAZY (CLEAR); COLOR,URINE ORANGE (YELLOW)
[2018-10-02] MEDS: INSULIN Lispro 100 UNITS/ML VIAL (humaLOG) SUBCUT SCH ×2 (12:00→17:04)
[2018-10-02 12:02] LABS: BACTERIA,URINE MODERATE /HPF (None Seen); RBC,URINE 50-80 /HPF (0-3)
[2018-10-02 12:03] LABS: MUCUS,URINE 1+ /LPF (None Seen)
[2018-10-02] MEDS: INSULIN LISPRO SLIDING SCALE 100 UNITS/ML VIAL (humaLOG) SUBCUT PRN ×3 (13:00→22:14)
[2018-10-02 15:43] VITALS: BP_SYST 134
[2018-10-02] MEDS ORDERED: FUROSEMIDE 20 MG/2 ML VIAL IVP ONE (16:00)
[2018-10-02 20:00] VITALS: BP_SYST 119
[2018-10-02] MEDS: INSULIN GLARGINE 100 UNITS/ML 10 ML VIAL SUBCUT SCH (21:00)
[2018-10-02] MEDS: LEVOFLOXACIN 250 MG/D5W 50 ML IV SCH (21:19)
[2018-10-02] MEDS: GABAPENTIN 300 MG CAPSULE PO SCH (21:23)
[2018-10-02] MEDS: SIMVASTATIN 10 MG TABLET PO SCH (21:23)
[2018-10-02] MEDS: PRAMIPEXOLE DI-HCL 0.25 MG TABLET PO SCH (21:23)
[2018-10-03] VITALS (13 sets, daily range): BP systolic 94–138
[2018-10-03] MEDS: INSULIN LISPRO SLIDING SCALE 100 UNITS/ML VIAL (humaLOG) SUBCUT PRN (06:22)
[2018-10-03 07:49] LABS: ANION GAP 7 (5-15); CALCIUM 7.5 mg/dL (8.4-11.0); CHLORIDE 105 mmol/L (98-107); CREATININE 0.98 mg/dL (0.55-1.30); GLUCOSE 241 mg/dL (70-99); POTASSIUM 3.6 mmol/L (3.5-5.1); SODIUM SERUM 140 mmol/L (136-145); UREA NITROGEN, BLOOD 30 mg/dL (8-21)
[2018-10-03 07:58] LABS: ALBUMIN 1.3 g/dL (3.4-4.8); ASPARTATE AMINOTRANSFERASE 16 U/L (10-37); TOTAL BILIRUBIN 1.1 mg/dL (0.0-1.0)
[2018-10-03 08:13] LABS: EOSINOPHILS % (AUTO) 0.2 % (0.0-4.0); HEMATOCRIT 28.4 % (36-48); HEMOGLOBIN 8.9 g/dL (12.0-16.0); LYMPHOCYTES # (AUTO) 0.4 K/uL (1.0-5.5); LYMPHOCYTES % (AUTO) 5.5 % (20.5-51.5); MEAN CORPUSCULAR HEMOGLOBIN 24 pg (27-31); MEAN CORPUSCULAR HGB CONC 31 % (32-36); MEAN CORPUSCULAR VOLUME 75 fL (79.0-98.0); MONOCYTES # (AUTO) 0.3 K/uL (0.0-1.0); MONOCYTES % (AUTO) 4.4 % (1.7-9.3); NEUTROPHILS # (AUTO) 6.8 K/uL (1.8-7.7); NEUTROPHILS % (AUTO) 89.9 % (40.0-70.0); PLATELET COUNT (AUTO) 184 K/uL (130-430); RED BLOOD CELL COUNT(AUTO) 3.77 MIL/uL (4.2-6.2); RED CELL DISTRIBUTION WIDTH 18.6 % (9.0-15.0); WHITE BLOOD COUNT (AUTO) 7.5 K/uL (4.8-10.8)
[2018-10-03 08:21] LABS: ALANINE AMINOTRANSFERASE 6 U/L (12-78)
[2018-10-03] MEDS: INSULIN Lispro 100 UNITS/ML VIAL (humaLOG) SUBCUT SCH ×3 (08:54→17:51)
[2018-10-03] MEDS: FUROSEMIDE 20 MG/2 ML VIAL IVP SCH ×2 (08:55→20:26)
[2018-10-03] MEDS: BALSAM PERU/CASTOR OIL 60 GM OINT...G. TP SCH (08:56)
[2018-10-03] MEDS: PANTOPRAZOLE SODIUM 40 MG/VIAL (PROTONIX) IVP SCH (08:56)
[2018-10-03] MEDS: DOCUSATE SODIUM 100 MG CAPSULE PO SCH ×2 (08:56→20:27)
[2018-10-03] MEDS: SPIRONOLACTONE 25 MG TABLET (ALDACTONE) PO SCH (08:56)
[2018-10-03] MEDS: DILTIAZEM HCL 120 MG CAP.SR.24H PO SCH (08:57)
[2018-10-03] MEDS: OXYBUTYNIN CHLORIDE 5 MG TABLET PO SCH ×2 (08:57→20:27)
[2018-10-03] MEDS: METOPROLOL TARTRATE 25 MG TABLET PO SCH ×2 (08:57→20:27)
[2018-10-03] MEDS: DIGOXIN 0.125 MG TABLET PO SCH (08:58)
[2018-10-03] MEDS ORDERED: MIDAZOLAM HCL 5 MG/5 ML VIAL ONE (14:40)
[2018-10-03] MEDS ORDERED: PIPERACILLIN/TAZO 3.375/DEX-IS 50 ML IV ONE (14:45)
[2018-10-03 14:56] LABS: APPEARANCE,SPUN,BODY FLUID CLEAR (CLEAR); BF APPEARANCE UNSPUN HAZY (CLEAR); BODY FLUID COLOR DARK YELLOW (LT YELLOW); BODY FLUID SOURCE/ TYPE PARACENTESIS; BODY FLUID TOTAL VOLUME 2200 mL; SOURCE/TYPE ,BODY FLUID PARACENTESIS
[2018-10-03] MEDS ORDERED: MORPHINE 4 MG/ML INJ. SYRINGE IVP PRN (15:00)
[2018-10-03] MEDS ORDERED: 0.45% NACL 1,000 ML IV SCH (15:00)
[2018-10-03 15:12] LABS: RBC, BODY FLUID 725 /uL; WBC, BODY FLUID 458 /uL
[2018-10-03] MEDS ORDERED: ETOMIDATE 20 MG/ 10 ML VIAL (AMIDATE) IVP ONE (15:13)
[2018-10-03 15:16] LABS: LYMPHOCYTES, BODY FLUID 18 %; MONOCYTES,BODY FLUID 5 %; NEUTROPHIL, BODY FLUID 77 %
[2018-10-03 15:40] LABS: ANION GAP 5 (5-15); CALCIUM 7.5 mg/dL (8.4-11.0); CHLORIDE 104 mmol/L (98-107); CREATININE 1.04 mg/dL (0.55-1.30); GLUCOSE 156 mg/dL (70-99); POTASSIUM 3.7 mmol/L (3.5-5.1); SODIUM SERUM 138 mmol/L (136-145); UREA NITROGEN, BLOOD 33 mg/dL (8-21)
[2018-10-03 15:45] LABS: ALANINE AMINOTRANSFERASE 9 U/L (12-78); ALBUMIN 1.5 g/dL (3.4-4.8); ASPARTATE AMINOTRANSFERASE 18 U/L (10-37); BASOPHILS % (AUTO) 0.1 % (0.0-2.0); EOSINOPHILS % (AUTO) 0.2 % (0.0-4.0); HEMATOCRIT 31.3 % (36-48); HEMOGLOBIN 9.7 g/dL (12.0-16.0); LYMPHOCYTES # (AUTO) 0.4 K/uL (1.0-5.5); LYMPHOCYTES % (AUTO) 5.2 % (20.5-51.5); MEAN CORPUSCULAR HEMOGLOBIN 24 pg (27-31); MEAN CORPUSCULAR HGB CONC 31 % (32-36); MEAN CORPUSCULAR VOLUME 76 fL (79.0-98.0); MONOCYTES # (AUTO) 0.4 K/uL (0.0-1.0); MONOCYTES % (AUTO) 6.1 % (1.7-9.3); NEUTROPHILS # (AUTO) 5.9 K/uL (1.8-7.7); NEUTROPHILS % (AUTO) 88.4 % (40.0-70.0); PLATELET COUNT (AUTO) 218 K/uL (130-430); RED BLOOD CELL COUNT(AUTO) 4.12 MIL/uL (4.2-6.2); RED CELL DISTRIBUTION WIDTH 18.2 % (9.0-15.0); WHITE BLOOD COUNT (AUTO) 6.8 K/uL (4.8-10.8)
[2018-10-03 17:26] LABS: BODY FLUID GLUCOSE 154 mg/dL
[2018-10-03 17:27] LABS: BODY FLUID TOTAL PROTEIN 3.2 g/dL
[2018-10-03] MEDS: LEVOFLOXACIN 250 MG/D5W 50 ML IV SCH (20:26)
[2018-10-03] MEDS: GABAPENTIN 300 MG CAPSULE PO SCH (20:27)
[2018-10-03] MEDS: PRAMIPEXOLE DI-HCL 0.25 MG TABLET PO SCH (20:27)
[2018-10-03] MEDS: SIMVASTATIN 10 MG TABLET PO SCH (20:27)
[2018-10-03] MEDS: LORazepam 2 MG/ML VIAL IVP PRN (21:37)
[2018-10-03] MEDS: PIPERACILLIN/TAZO 3.375/DEX-IS 50 ML IV SCH (23:03)
[2018-10-04] VITALS (32 sets, daily range): BP systolic 101–121
[2018-10-04] MEDS: PIPERACILLIN/TAZO 3.375/DEX-IS 50 ML IV SCH ×4 (05:27→23:49)
[2018-10-04] MEDS: LORazepam 2 MG/ML VIAL IVP PRN ×2 (05:27→18:04)
[2018-10-04 05:46] LABS: BASOPHILS % (AUTO) 0.2 % (0.0-2.0); EOSINOPHILS % (AUTO) 0.6 % (0.0-4.0); HEMATOCRIT 27.3 % (36-48); HEMOGLOBIN 8.4 g/dL (12.0-16.0); LYMPHOCYTES # (AUTO) 0.4 K/uL (1.0-5.5); LYMPHOCYTES % (AUTO) 8.5 % (20.5-51.5); MEAN CORPUSCULAR HEMOGLOBIN 23 pg (27-31); MEAN CORPUSCULAR HGB CONC 31 % (32-36); MEAN CORPUSCULAR VOLUME 75 fL (79.0-98.0); MONOCYTES # (AUTO) 0.4 K/uL (0.0-1.0); MONOCYTES % (AUTO) 6.7 % (1.7-9.3); NEUTROPHILS # (AUTO) 4.5 K/uL (1.8-7.7); PLATELET COUNT (AUTO) 167 K/uL (130-430); RED BLOOD CELL COUNT(AUTO) 3.62 MIL/uL (4.2-6.2); RED CELL DISTRIBUTION WIDTH 18.9 % (9.0-15.0); WHITE BLOOD COUNT (AUTO) 5.3 K/uL (4.8-10.8)
[2018-10-04] MEDS ORDERED: DEXTROSE 50% JECT 50 ML DISP.SYRIN ONE ×2 (05:46→12:00)
[2018-10-04 05:49] LABS: ALANINE AMINOTRANSFERASE 9 U/L (12-78); ALBUMIN 1.3 g/dL (3.4-4.8); ANION GAP 5 (5-15); ASPARTATE AMINOTRANSFERASE 18 U/L (10-37); CALCIUM 7.3 mg/dL (8.4-11.0); CHLORIDE 105 mmol/L (98-107); CREATININE 1.03 mg/dL (0.55-1.30); GLUCOSE 61 mg/dL (70-99); POTASSIUM 3.4 mmol/L (3.5-5.1); SODIUM SERUM 139 mmol/L (136-145); TOTAL BILIRUBIN 0.9 mg/dL (0.0-1.0); UREA NITROGEN, BLOOD 34 mg/dL (8-21)
[2018-10-04] MEDS: D5/0.45 NS 1,000 ML IV SCH (06:13)
[2018-10-04] MEDS: INSULIN Lispro 100 UNITS/ML VIAL (humaLOG) SUBCUT SCH (09:03)
[2018-10-04] MEDS: PANTOPRAZOLE SODIUM 40 MG/VIAL (PROTONIX) IVP SCH (09:04)
[2018-10-04] MEDS: FUROSEMIDE 20 MG/2 ML VIAL IVP SCH ×2 (09:04→20:53)
[2018-10-04] MEDS: METOPROLOL TARTRATE 25 MG TABLET PO SCH ×2 (09:05→20:53)
[2018-10-04] MEDS: OXYBUTYNIN CHLORIDE 5 MG TABLET PO SCH ×2 (09:05→20:53)
[2018-10-04] MEDS: DOCUSATE SODIUM 100 MG CAPSULE PO SCH ×2 (09:05→20:52)
[2018-10-04] MEDS: SPIRONOLACTONE 25 MG TABLET (ALDACTONE) PO SCH (09:06)
[2018-10-04] MEDS: DIGOXIN 0.125 MG TABLET PO SCH (09:06)
[2018-10-04] MEDS: DILTIAZEM HCL 120 MG CAP.SR.24H PO SCH (09:07)
[2018-10-04] MEDS ORDERED: D5W 1,000 ML IV PRN (11:47)
[2018-10-04] MEDS ORDERED: GLUCOSE 15 GM GEL (in 37.5 GM TUBE) PO PRN (12:00)
[2018-10-04] MEDS: DEXTROSE 50% JECT 50 ML DISP.SYRIN IVP PRN ×3 (12:08→18:23)
[2018-10-04] MEDS: BALSAM PERU/CASTOR OIL 60 GM OINT...G. TP SCH (15:36)
[2018-10-04] MEDS: PRAMIPEXOLE DI-HCL 0.25 MG TABLET PO SCH (20:52)
[2018-10-04] MEDS: SIMVASTATIN 10 MG TABLET PO SCH (20:52)
[2018-10-04] MEDS: GABAPENTIN 300 MG CAPSULE PO SCH (20:53)
[2018-10-04] MEDS: LEVOFLOXACIN 250 MG/D5W 50 ML IV SCH (20:53)
[2018-10-05] VITALS (33 sets, daily range): BP systolic 98–138
[2018-10-05] MEDS: LORazepam 2 MG/ML VIAL IVP PRN ×2 (00:04→20:31)
[2018-10-05] MEDS: D5/0.45 NS 1,000 ML IV SCH (05:30)
[2018-10-05] MEDS: PIPERACILLIN/TAZO 3.375/DEX-IS 50 ML IV SCH (05:30)
[2018-10-05] MEDS: INSULIN LISPRO SLIDING SCALE 100 UNITS/ML VIAL (humaLOG) SUBCUT PRN ×3 (06:19→17:08)
[2018-10-05] MEDS: DOCUSATE SODIUM 100 MG CAPSULE PO SCH ×2 (09:23→20:31)
[2018-10-05] MEDS: SPIRONOLACTONE 25 MG TABLET (ALDACTONE) PO SCH (09:23)
[2018-10-05] MEDS: OXYBUTYNIN CHLORIDE 5 MG TABLET PO SCH ×2 (09:24→20:41)
[2018-10-05] MEDS: METOPROLOL TARTRATE 25 MG TABLET PO SCH ×2 (09:24→20:30)
[2018-10-05] MEDS: DIGOXIN 0.125 MG TABLET PO SCH (09:25)
[2018-10-05] MEDS: DILTIAZEM HCL 120 MG CAP.SR.24H PO SCH (09:25)
[2018-10-05] MEDS: FUROSEMIDE 20 MG/2 ML VIAL IVP SCH ×2 (09:27→20:30)
[2018-10-05] MEDS: BALSAM PERU/CASTOR OIL 60 GM OINT...G. TP SCH (09:27)
[2018-10-05] MEDS: FLUCONAZOLE 100 mg/ NS 50 ML IV SCH (09:31)
[2018-10-05] MEDS: FAMOTIDINE 20 MG TABLET PO SCH ×2 (09:31→20:30)
[2018-10-05 10:16] LABS: ANION GAP 4 (5-15); CALCIUM 7.4 mg/dL (8.4-11.0); CHLORIDE 104 mmol/L (98-107); CREATININE 0.97 mg/dL (0.55-1.30); GLUCOSE 192 mg/dL (70-99); POTASSIUM 3.6 mmol/L (3.5-5.1); SODIUM SERUM 137 mmol/L (136-145); UREA NITROGEN, BLOOD 37 mg/dL (8-21)
[2018-10-05 10:34] LABS: WHITE BLOOD COUNT (AUTO) 4.9 K/uL (4.8-10.8)
[2018-10-05 10:35] LABS: BASOPHILS % (AUTO) 0.2 % (0.0-2.0); HEMATOCRIT 29.3 % (36-48); HEMOGLOBIN 9.1 g/dL (12.0-16.0); LYMPHOCYTES # (AUTO) 0.4 K/uL (1.0-5.5); LYMPHOCYTES % (AUTO) 7.7 % (20.5-51.5); MEAN CORPUSCULAR HEMOGLOBIN 23 pg (27-31); MEAN CORPUSCULAR HGB CONC 31 % (32-36); MEAN CORPUSCULAR VOLUME 75 fL (79.0-98.0); MONOCYTES # (AUTO) 0.4 K/uL (0.0-1.0); MONOCYTES % (AUTO) 7.5 % (1.7-9.3); NEUTROPHILS # (AUTO) 4.1 K/uL (1.8-7.7); NEUTROPHILS % (AUTO) 83.6 % (40.0-70.0); PLATELET COUNT (AUTO) 155 K/uL (130-430); RED CELL DISTRIBUTION WIDTH 20.1 % (9.0-15.0)
[2018-10-05 10:36] LABS: EOSINOPHILS # (AUTO) 0.1 K/uL (0.0-0.4)
[2018-10-05] MEDS: LEVOFLOXACIN 250 MG/D5W 50 ML IV SCH (20:29)
[2018-10-05] MEDS: SIMVASTATIN 10 MG TABLET PO SCH (20:30)
[2018-10-05] MEDS: GABAPENTIN 300 MG CAPSULE PO SCH (20:31)
[2018-10-05] MEDS: PRAMIPEXOLE DI-HCL 0.25 MG TABLET PO SCH (20:31)
[2018-10-05] MEDS: HEPARIN SODIUM,PORCINE 5000 UNITS/ML VIAL SUBCUT SCH (20:51)
[2018-10-05] MEDS ORDERED: ACETAMINOPHEN 325 MG TABLET NG PRN (21:30)
[2018-10-05] MEDS ORDERED: ACETAMINOPHEN 650 MG/20.3 ML UDC ONE (21:44)
[2018-10-05] MEDS: ALBUTEROL SULFATE 0.083% 2.5 MG/3 ML VIAL.NEB INH PRN (22:32)
[2018-10-05] MEDS ORDERED: ACETAMINOPHEN 325 MG TABLET GT PRN (23:00)
[2018-10-06] VITALS (33 sets, daily range): BP systolic 97–135
[2018-10-06 05:58] LABS: ANION GAP 7 (5-15); CALCIUM 7.3 mg/dL (8.4-11.0); CHLORIDE 104 mmol/L (98-107); CREATININE 1.23 mg/dL (0.55-1.30); GLUCOSE 221 mg/dL (70-99); POTASSIUM 3.6 mmol/L (3.5-5.1); SODIUM SERUM 140 mmol/L (136-145); UREA NITROGEN, BLOOD 46 mg/dL (8-21)
[2018-10-06] MEDS: D5/0.45 NS 1,000 ML IV SCH (06:03)
[2018-10-06] MEDS: INSULIN LISPRO SLIDING SCALE 100 UNITS/ML VIAL (humaLOG) SUBCUT PRN ×4 (06:14→21:21)
[2018-10-06] MEDS: FLUCONAZOLE 100 mg/ NS 50 ML IV SCH (08:46)
[2018-10-06] MEDS: FAMOTIDINE 20 MG TABLET PO SCH ×2 (08:47→20:52)
[2018-10-06] MEDS: HEPARIN SODIUM,PORCINE 5000 UNITS/ML VIAL SUBCUT SCH ×2 (08:47→21:22)
[2018-10-06] MEDS: DOCUSATE SODIUM 100 MG CAPSULE PO SCH ×2 (08:48→20:53)
[2018-10-06] MEDS: FUROSEMIDE 20 MG/2 ML VIAL IVP SCH ×2 (08:49→20:54)
[2018-10-06] MEDS: METOPROLOL TARTRATE 25 MG TABLET PO SCH ×2 (08:49→20:53)
[2018-10-06] MEDS: DIGOXIN 0.125 MG TABLET PO SCH (08:50)
[2018-10-06] MEDS: DILTIAZEM HCL 120 MG CAP.SR.24H PO SCH (08:50)
[2018-10-06] MEDS: OXYBUTYNIN CHLORIDE 5 MG TABLET PO SCH ×2 (08:50→20:53)
[2018-10-06] MEDS: SPIRONOLACTONE 25 MG TABLET (ALDACTONE) PO SCH (08:51)
[2018-10-06] MEDS: BALSAM PERU/CASTOR OIL 60 GM OINT...G. TP SCH (08:52)
[2018-10-06] MEDS: LORazepam 2 MG/ML VIAL IVP PRN (16:48)
[2018-10-06] MEDS: PRAMIPEXOLE DI-HCL 0.25 MG TABLET PO SCH (20:52)
[2018-10-06] MEDS: SIMVASTATIN 10 MG TABLET PO SCH (20:53)
[2018-10-06] MEDS: GABAPENTIN 300 MG CAPSULE PO SCH (20:53)
[2018-10-06] MEDS: LEVOFLOXACIN 250 MG/D5W 50 ML IV SCH (21:22)
[2018-10-07] VITALS (28 sets, daily range): BP systolic 98–126
[2018-10-07] MEDS: D5/0.45 NS 1,000 ML IV SCH (05:53)
[2018-10-07] MEDS: INSULIN LISPRO SLIDING SCALE 100 UNITS/ML VIAL (humaLOG) SUBCUT PRN ×4 (06:02→21:31)
[2018-10-07 06:21] LABS: ANION GAP 3 (5-15); CALCIUM 7.7 mg/dL (8.4-11.0); CHLORIDE 103 mmol/L (98-107); CREATININE 1.07 mg/dL (0.55-1.30); GLUCOSE 171 mg/dL (70-99); POTASSIUM 3.6 mmol/L (3.5-5.1); SODIUM SERUM 136 mmol/L (136-145); UREA NITROGEN, BLOOD 57 mg/dL (8-21)
[2018-10-07] MEDS: SPIRONOLACTONE 25 MG TABLET (ALDACTONE) PO SCH (08:30)
[2018-10-07] MEDS: DIGOXIN 0.125 MG TABLET PO SCH (08:30)
[2018-10-07] MEDS: DILTIAZEM HCL 120 MG CAP.SR.24H PO SCH (08:30)
[2018-10-07] MEDS: FAMOTIDINE 20 MG TABLET PO SCH ×2 (08:31→21:08)
[2018-10-07] MEDS: METOPROLOL TARTRATE 25 MG TABLET PO SCH ×2 (08:31→21:00)
[2018-10-07] MEDS: DOCUSATE SODIUM 100 MG CAPSULE PO SCH ×2 (08:31→21:09)
[2018-10-07] MEDS: OXYBUTYNIN CHLORIDE 5 MG TABLET PO SCH ×2 (08:32→21:08)
[2018-10-07] MEDS: FUROSEMIDE 20 MG/2 ML VIAL IVP SCH ×2 (08:32→21:07)
[2018-10-07] MEDS: FLUCONAZOLE 100 mg/ NS 50 ML IV SCH (08:33)
[2018-10-07] MEDS: HEPARIN SODIUM,PORCINE 5000 UNITS/ML VIAL SUBCUT SCH ×2 (08:38→21:27)
[2018-10-07] MEDS: BALSAM PERU/CASTOR OIL 60 GM OINT...G. TP SCH (10:19)
[2018-10-07] MEDS: ALBUTEROL SULFATE 0.083% 2.5 MG/3 ML VIAL.NEB INH PRN ×2 (12:11→19:57)
[2018-10-07] MEDS: ACETAMINOPHEN 325 MG TABLET NG PRN (17:03)
[2018-10-07] MEDS: LEVOFLOXACIN 250 MG/D5W 50 ML IV SCH (21:06)
[2018-10-07] MEDS: SIMVASTATIN 10 MG TABLET PO SCH (21:08)
[2018-10-07] MEDS: GABAPENTIN 300 MG CAPSULE PO SCH (21:09)
[2018-10-07] MEDS: PRAMIPEXOLE DI-HCL 0.25 MG TABLET PO SCH (21:11)
[2018-10-07] MEDS ORDERED: VANCOMYCIN HCL 1,250 MG in NS 250 ML IV ONE (22:00)
[2018-10-07] MEDS ORDERED: VANCOMYCIN HCL 1000 MG/VIAL IV ONE (22:01)
[2018-10-07] MEDS ORDERED: VANCOMYCIN HCL 500 MG/VIAL IV ONE (22:01)
[2018-10-08] VITALS (24 sets, daily range): BP systolic 101–120
[2018-10-08] MEDS: ALBUTEROL SULFATE 0.083% 2.5 MG/3 ML VIAL.NEB INH PRN ×3 (03:24→19:56)
[2018-10-08] MEDS: D5/0.45 NS 1,000 ML IV SCH (06:37)
[2018-10-08] MEDS: INSULIN LISPRO SLIDING SCALE 100 UNITS/ML VIAL (humaLOG) SUBCUT PRN ×4 (06:40→21:53)
[2018-10-08] MEDS: HEPARIN SODIUM,PORCINE 5000 UNITS/ML VIAL SUBCUT SCH ×2 (08:17→21:52)
[2018-10-08] MEDS: FUROSEMIDE 20 MG/2 ML VIAL IVP SCH ×2 (08:18→21:25)
[2018-10-08] MEDS: DOCUSATE SODIUM 100 MG CAPSULE PO SCH ×2 (08:19→21:26)
[2018-10-08] MEDS: FAMOTIDINE 20 MG TABLET PO SCH ×2 (08:19→21:26)
[2018-10-08] MEDS: SPIRONOLACTONE 25 MG TABLET (ALDACTONE) PO SCH (08:19)
[2018-10-08] MEDS: OXYBUTYNIN CHLORIDE 5 MG TABLET PO SCH ×2 (08:19→21:25)
[2018-10-08] MEDS: METOPROLOL TARTRATE 25 MG TABLET PO SCH ×2 (08:20→21:26)
[2018-10-08] MEDS: FLUCONAZOLE 100 mg/ NS 50 ML IV SCH (08:23)
[2018-10-08] MEDS: DILTIAZEM HCL 120 MG CAP.SR.24H PO SCH (08:23)
[2018-10-08] MEDS: DIGOXIN 0.125 MG TABLET PO SCH (08:23)
[2018-10-08] MEDS: BALSAM PERU/CASTOR OIL 60 GM OINT...G. TP SCH (08:24)
[2018-10-08] MEDS: ACETAMINOPHEN 325 MG TABLET NG PRN ×2 (12:20→21:26)
[2018-10-08] MEDS: VANCOMYCIN HCL 1,250 MG in NS 250 ML IV SCH (21:24)
[2018-10-08] MEDS: GABAPENTIN 300 MG CAPSULE PO SCH (21:25)
[2018-10-08] MEDS: SIMVASTATIN 10 MG TABLET PO SCH (21:26)
[2018-10-08] MEDS: PRAMIPEXOLE DI-HCL 0.25 MG TABLET PO SCH (21:26)
[2018-10-09] VITALS (24 sets, daily range): BP systolic 101–123
[2018-10-09] MEDS: D5/0.45 NS 1,000 ML IV SCH (06:16)
[2018-10-09] MEDS: INSULIN LISPRO SLIDING SCALE 100 UNITS/ML VIAL (humaLOG) SUBCUT PRN ×4 (06:22→21:15)
[2018-10-09 07:09] LABS: ANION GAP 5 (5-15); CALCIUM 7.9 mg/dL (8.4-11.0); CHLORIDE 106 mmol/L (98-107); CREATININE 1.16 mg/dL (0.55-1.30); GLUCOSE 246 mg/dL (70-99); POTASSIUM 4.3 mmol/L (3.5-5.1); SODIUM SERUM 142 mmol/L (136-145); UREA NITROGEN, BLOOD 58 mg/dL (8-21)
[2018-10-09 07:25] LABS: ALANINE AMINOTRANSFERASE 9 U/L (12-78); ALBUMIN 1.2 g/dL (3.4-4.8); ASPARTATE AMINOTRANSFERASE 25 U/L (10-37); TOTAL BILIRUBIN 0.8 mg/dL (0.0-1.0)
[2018-10-09 07:32] LABS: HEMATOCRIT 29.8 % (36-48); HEMOGLOBIN 9.4 g/dL (12.0-16.0); MEAN CORPUSCULAR VOLUME 75 fL (79.0-98.0); RED BLOOD CELL COUNT(AUTO) 4.01 MIL/uL (4.2-6.2); WHITE BLOOD COUNT (AUTO) 6.8 K/uL (4.8-10.8)
[2018-10-09 07:33] LABS: MEAN CORPUSCULAR HEMOGLOBIN 23 pg (27-31); MEAN CORPUSCULAR HGB CONC 31 % (32-36); PLATELET COUNT (AUTO) 188 K/uL (130-430); RED CELL DISTRIBUTION WIDTH 19.9 % (9.0-15.0)
[2018-10-09] MEDS: FUROSEMIDE 20 MG/2 ML VIAL IVP SCH ×2 (09:37→21:00)
[2018-10-09] MEDS: FAMOTIDINE 20 MG TABLET PO SCH ×2 (09:37→21:00)
[2018-10-09] MEDS: DIGOXIN 0.125 MG TABLET PO SCH (09:38)
[2018-10-09] MEDS: METOPROLOL TARTRATE 25 MG TABLET PO SCH ×2 (09:38→21:01)
[2018-10-09] MEDS: SPIRONOLACTONE 25 MG TABLET (ALDACTONE) PO SCH (09:38)
[2018-10-09] MEDS: DOCUSATE SODIUM 100 MG CAPSULE PO SCH ×2 (09:38→21:00)
[2018-10-09] MEDS: DILTIAZEM HCL 120 MG CAP.SR.24H PO SCH (09:39)
[2018-10-09] MEDS: OXYBUTYNIN CHLORIDE 5 MG TABLET PO SCH ×2 (09:39→21:00)
[2018-10-09] MEDS: HEPARIN SODIUM,PORCINE 5000 UNITS/ML VIAL SUBCUT SCH ×2 (09:41→21:14)
[2018-10-09] MEDS: BALSAM PERU/CASTOR OIL 60 GM OINT...G. TP SCH (09:42)
[2018-10-09] MEDS: FLUCONAZOLE 100 mg/ NS 50 ML IV SCH (09:42)
[2018-10-09 11:23] LABS: LYMPHOCYTES % (AUTO) 8.5 % (20.5-51.5); MONOCYTES % (AUTO) 5.8 % (1.7-9.3); NEUTROPHILS % (AUTO) 85.4 % (40.0-70.0)
[2018-10-09 11:24] LABS: BASOPHILS % (AUTO) 0.2 % (0.0-2.0); EOSINOPHILS % (AUTO) 0.1 % (0.0-4.0); LYMPHOCYTES # (AUTO) 0.6 K/uL (1.0-5.5); MONOCYTES # (AUTO) 0.4 K/uL (0.0-1.0); NEUTROPHILS # (AUTO) 5.8 K/uL (1.8-7.7)
[2018-10-09] MEDS: ACETAMINOPHEN 325 MG TABLET NG PRN ×2 (12:06→21:01)
[2018-10-09] MEDS: PRAMIPEXOLE DI-HCL 0.25 MG TABLET PO SCH (21:00)
[2018-10-09] MEDS: SIMVASTATIN 10 MG TABLET PO SCH (21:01)
[2018-10-09] MEDS: GABAPENTIN 300 MG CAPSULE PO SCH (21:01)
[2018-10-09] MEDS: VANCOMYCIN HCL 1,250 MG in NS 250 ML IV SCH (22:28)
[2018-10-10] VITALS (24 sets, daily range): BP systolic 95–133
[2018-10-10] MEDS: INSULIN LISPRO SLIDING SCALE 100 UNITS/ML VIAL (humaLOG) SUBCUT PRN ×4 (07:07→21:00)
[2018-10-10] MEDS: OXYBUTYNIN CHLORIDE 5 MG TABLET PO SCH ×2 (08:49→21:05)
[2018-10-10] MEDS: DIGOXIN 0.125 MG TABLET PO SCH (08:49)
[2018-10-10] MEDS: FAMOTIDINE 20 MG TABLET PO SCH ×2 (08:49→21:04)
[2018-10-10] MEDS: METOPROLOL TARTRATE 25 MG TABLET PO SCH ×2 (08:50→21:05)
[2018-10-10] MEDS: SPIRONOLACTONE 25 MG TABLET (ALDACTONE) PO SCH (08:50)
[2018-10-10] MEDS: DILTIAZEM HCL 120 MG CAP.SR.24H PO SCH (08:51)
[2018-10-10] MEDS: DOCUSATE SODIUM 100 MG CAPSULE PO SCH ×2 (08:52→21:05)
[2018-10-10] MEDS: FUROSEMIDE 20 MG/2 ML VIAL IVP SCH ×2 (08:52→21:04)
[2018-10-10] MEDS: HEPARIN SODIUM,PORCINE 5000 UNITS/ML VIAL SUBCUT SCH ×2 (08:54→20:58)
[2018-10-10] MEDS: BALSAM PERU/CASTOR OIL 60 GM OINT...G. TP SCH (08:56)
[2018-10-10] MEDS: FLUCONAZOLE 100 mg/ NS 50 ML IV SCH (10:10)
[2018-10-10] MEDS: D5/0.45 NS 1,000 ML IV SCH (11:58)
[2018-10-10] MEDS: ACETAMINOPHEN 325 MG TABLET NG PRN (14:56)
[2018-10-10] MEDS: ALBUTEROL SULFATE 0.083% 2.5 MG/3 ML VIAL.NEB INH PRN (19:43)
[2018-10-10] MEDS ORDERED: IBUPROFEN 400 MG TABLET ONE (20:54)
[2018-10-10] MEDS: PRAMIPEXOLE DI-HCL 0.25 MG TABLET PO SCH (21:05)
[2018-10-10] MEDS: SIMVASTATIN 10 MG TABLET PO SCH (21:05)
[2018-10-10] MEDS: GABAPENTIN 300 MG CAPSULE PO SCH (21:05)
[2018-10-10] MEDS: IBUPROFEN 600 MG TABLET PO PRN (21:06)
[2018-10-10 21:09] LABS: HEMATOCRIT 28.8 % (36-48); HEMOGLOBIN 9.1 g/dL (12.0-16.0); MEAN CORPUSCULAR HEMOGLOBIN 24 pg (27-31); MEAN CORPUSCULAR HGB CONC 32 % (32-36); MEAN CORPUSCULAR VOLUME 74 fL (79.0-98.0); RED BLOOD CELL COUNT(AUTO) 3.88 MIL/uL (4.2-6.2); RED CELL DISTRIBUTION WIDTH 20.1 % (9.0-15.0); WHITE BLOOD COUNT (AUTO) 6.9 K/uL (4.8-10.8)
[2018-10-10 21:10] LABS: BASOPHILS % (AUTO) 0.2 % (0.0-2.0); EOSINOPHILS % (AUTO) 0.1 % (0.0-4.0); LYMPHOCYTES # (AUTO) 0.6 K/uL (1.0-5.5); LYMPHOCYTES % (AUTO) 8.5 % (20.5-51.5); MONOCYTES # (AUTO) 0.5 K/uL (0.0-1.0); MONOCYTES % (AUTO) 7.5 % (1.7-9.3); NEUTROPHILS # (AUTO) 5.8 K/uL (1.8-7.7); NEUTROPHILS % (AUTO) 83.7 % (40.0-70.0); PLATELET COUNT (AUTO) 227 K/uL (130-430)
[2018-10-10 21:24] LABS: ALANINE AMINOTRANSFERASE 13 U/L (12-78); ALBUMIN 1.2 g/dL (3.4-4.8); ANION GAP 4 (5-15); ASPARTATE AMINOTRANSFERASE 29 U/L (10-37); CALCIUM 8.1 mg/dL (8.4-11.0); CHLORIDE 105 mmol/L (98-107); CREATININE 1.17 mg/dL (0.55-1.30); GLUCOSE 268 mg/dL (70-99); POTASSIUM 4.7 mmol/L (3.5-5.1); SODIUM SERUM 139 mmol/L (136-145); TOTAL BILIRUBIN 0.7 mg/dL (0.0-1.0); UREA NITROGEN, BLOOD 74 mg/dL (8-21)
[2018-10-10] MEDS: VANCOMYCIN HCL 1,250 MG in NS 250 ML IV SCH (21:47)
[2018-10-11] VITALS (24 sets, daily range): BP systolic 97–159
[2018-10-11] MEDS: INSULIN LISPRO SLIDING SCALE 100 UNITS/ML VIAL (humaLOG) SUBCUT PRN ×3 (06:11→22:17)
[2018-10-11 07:22] LABS: ANION GAP 7 (5-15); CALCIUM 7.8 mg/dL (8.4-11.0); CHLORIDE 106 mmol/L (98-107); CREATININE 1.41 mg/dL (0.55-1.30); GLUCOSE 266 mg/dL (70-99); POTASSIUM 4.8 mmol/L (3.5-5.1); SODIUM SERUM 143 mmol/L (136-145); UREA NITROGEN, BLOOD 83 mg/dL (8-21)
[2018-10-11 07:27] LABS: WHITE BLOOD COUNT (AUTO) 6.3 K/uL (4.8-10.8)
[2018-10-11 07:30] LABS: HEMATOCRIT 28.9 % (36-48); HEMOGLOBIN 8.9 g/dL (12.0-16.0); MEAN CORPUSCULAR HEMOGLOBIN 24 pg (27-31); MEAN CORPUSCULAR VOLUME 76 fL (79.0-98.0)
[2018-10-11 07:31] LABS: MEAN CORPUSCULAR HGB CONC 31 % (32-36); PLATELET COUNT (AUTO) 213 K/uL (130-430); RED CELL DISTRIBUTION WIDTH 20.3 % (9.0-15.0)
[2018-10-11 07:41] LABS: ALANINE AMINOTRANSFERASE 11 U/L (12-78); ALBUMIN 1.1 g/dL (3.4-4.8); ASPARTATE AMINOTRANSFERASE 25 U/L (10-37); TOTAL BILIRUBIN 0.6 mg/dL (0.0-1.0)
[2018-10-11 07:42] LABS: BASOPHILS % (AUTO) 0.1 % (0.0-2.0); EOSINOPHILS % (AUTO) 0.1 % (0.0-4.0); LYMPHOCYTES # (AUTO) 0.4 K/uL (1.0-5.5); MONOCYTES # (AUTO) 0.5 K/uL (0.0-1.0); MONOCYTES % (AUTO) 7.9 % (1.7-9.3); NEUTROPHILS # (AUTO) 5.3 K/uL (1.8-7.7); NEUTROPHILS % (AUTO) 84.9 % (40.0-70.0)
[2018-10-11] MEDS: ALBUTEROL SULFATE 0.083% 2.5 MG/3 ML VIAL.NEB INH PRN (07:45)
[2018-10-11 07:54] LABS: ANION GAP 6 (5-15); CHLORIDE 106 mmol/L (98-107); CREATININE 1.39 mg/dL (0.55-1.30); GLUCOSE,RANDOM 264 mg/dl (70-99); POTASSIUM 4.8 mmol/L (3.5-5.1); SODIUM SERUM 143 mmol/L (136-145); UREA NITROGEN, BLOOD 82 mg/dL (8-21)
[2018-10-11] MEDS: DOCUSATE SODIUM 100 MG CAPSULE PO SCH ×2 (09:00→22:18)
[2018-10-11] MEDS: FAMOTIDINE 20 MG TABLET PO SCH ×2 (09:05→22:20)
[2018-10-11] MEDS: DILTIAZEM HCL 120 MG CAP.SR.24H PO SCH (09:05)
[2018-10-11] MEDS: OXYBUTYNIN CHLORIDE 5 MG TABLET PO SCH ×2 (09:05→22:19)
[2018-10-11] MEDS: DIGOXIN 0.125 MG TABLET PO SCH (09:05)
[2018-10-11] MEDS: SPIRONOLACTONE 25 MG TABLET (ALDACTONE) PO SCH (09:05)
[2018-10-11] MEDS: METOPROLOL TARTRATE 25 MG TABLET PO SCH ×2 (09:06→22:20)
[2018-10-11] MEDS: FUROSEMIDE 20 MG/2 ML VIAL IVP SCH ×2 (09:06→22:18)
[2018-10-11] MEDS: BALSAM PERU/CASTOR OIL 60 GM OINT...G. TP SCH (09:07)
[2018-10-11] MEDS: FLUCONAZOLE 100 mg/ NS 50 ML IV SCH (09:07)
[2018-10-11] MEDS: HEPARIN SODIUM,PORCINE 5000 UNITS/ML VIAL SUBCUT SCH ×2 (09:09→22:15)
[2018-10-11 09:14] LABS: CALCIUM 7.7 mg/dL (8.4-10.2)
[2018-10-11] MEDS: D5/0.45 NS 1,000 ML IV SCH (16:22)
[2018-10-11] MEDS: ACETAMINOPHEN 325 MG TABLET NG PRN ×2 (16:23→22:42)
[2018-10-11] MEDS: IBUPROFEN 600 MG TABLET PO PRN (18:01)
[2018-10-11] MEDS: GABAPENTIN 300 MG CAPSULE PO SCH (22:20)
[2018-10-11] MEDS: PRAMIPEXOLE DI-HCL 0.25 MG TABLET PO SCH (22:20)
[2018-10-11] MEDS: SIMVASTATIN 10 MG TABLET PO SCH (22:21)
[2018-10-11] MEDS: VANCOMYCIN HCL 1,250 MG in NS 250 ML IV SCH (22:22)
[2018-10-12] VITALS (27 sets, daily range): BP systolic 87–158
[2018-10-12] MEDS: IBUPROFEN 600 MG TABLET PO PRN (03:23)
[2018-10-12] MEDS: INSULIN LISPRO SLIDING SCALE 100 UNITS/ML VIAL (humaLOG) SUBCUT PRN ×4 (06:03→21:15)
[2018-10-12 07:12] LABS: ANION GAP 6 (5-15); CALCIUM 7.9 mg/dL (8.4-11.0); CHLORIDE 106 mmol/L (98-107); CREATININE 1.49 mg/dL (0.55-1.30); GLUCOSE 222 mg/dL (70-99); SODIUM SERUM 142 mmol/L (136-145); UREA NITROGEN, BLOOD 100 mg/dL (8-21)
[2018-10-12 07:26] LABS: ALANINE AMINOTRANSFERASE 12 U/L (12-78); ALBUMIN 1.1 g/dL (3.4-4.8); ASPARTATE AMINOTRANSFERASE 22 U/L (10-37); TOTAL BILIRUBIN 0.6 mg/dL (0.0-1.0)
[2018-10-12 07:36] LABS: HEMATOCRIT 25.9 % (36-48); HEMOGLOBIN 8.1 g/dL (12.0-16.0); MEAN CORPUSCULAR VOLUME 75 fL (79.0-98.0); RED BLOOD CELL COUNT(AUTO) 3.46 MIL/uL (4.2-6.2); WHITE BLOOD COUNT (AUTO) 6.5 K/uL (4.8-10.8)
[2018-10-12 07:37] LABS: BASOPHILS % (AUTO) 0.2 % (0.0-2.0); EOSINOPHILS % (AUTO) 0.5 % (0.0-4.0); LYMPHOCYTES # (AUTO) 0.4 K/uL (1.0-5.5); LYMPHOCYTES % (AUTO) 5.5 % (20.5-51.5); MEAN CORPUSCULAR HEMOGLOBIN 24 pg (27-31); MEAN CORPUSCULAR HGB CONC 31 % (32-36); MONOCYTES # (AUTO) 0.4 K/uL (0.0-1.0); MONOCYTES % (AUTO) 6.8 % (1.7-9.3); NEUTROPHILS # (AUTO) 5.7 K/uL (1.8-7.7); PLATELET COUNT (AUTO) 245 K/uL (130-430); RED CELL DISTRIBUTION WIDTH 19.6 % (9.0-15.0)
[2018-10-12] MEDS: D5/0.45 NS 1,000 ML IV SCH ×2 (08:00→21:13)
[2018-10-12] MEDS ORDERED: FUROSEMIDE 40 MG/4 ML VIAL IVP SCH (08:46)
[2018-10-12] MEDS: SPIRONOLACTONE 25 MG TABLET (ALDACTONE) PO SCH (08:59)
[2018-10-12] MEDS: FAMOTIDINE 20 MG TABLET PO SCH ×2 (08:59→21:11)
[2018-10-12] MEDS: DOCUSATE SODIUM 100 MG CAPSULE PO SCH ×2 (08:59→21:11)
[2018-10-12] MEDS: OXYBUTYNIN CHLORIDE 5 MG TABLET PO SCH ×2 (09:00→21:12)
[2018-10-12] MEDS: DILTIAZEM HCL 120 MG CAP.SR.24H PO SCH (09:00)
[2018-10-12] MEDS: METOPROLOL TARTRATE 25 MG TABLET PO SCH ×2 (09:00→21:00)
[2018-10-12] MEDS: DIGOXIN 0.125 MG TABLET PO SCH (09:01)
[2018-10-12] MEDS: HEPARIN SODIUM,PORCINE 5000 UNITS/ML VIAL SUBCUT SCH ×2 (09:22→21:00)
[2018-10-12] MEDS: FLUCONAZOLE 100 mg/ NS 50 ML IV SCH (12:36)
[2018-10-12] MEDS: ACETAMINOPHEN 325 MG TABLET NG PRN (13:17)
[2018-10-12] MEDS: BALSAM PERU/CASTOR OIL 60 GM OINT...G. TP SCH (15:00)
[2018-10-12] MEDS ORDERED: ETOMIDATE 20 MG/ 10 ML VIAL (AMIDATE) IVP ONE (20:45)
[2018-10-12] MEDS ORDERED: LORazepam 2 MG/ML VIAL IVP PRN (21:00)
[2018-10-12] MEDS: CEFEPIME 1 GM in D5W 50 ML IV SCH (21:08)
[2018-10-12] MEDS: LINEZOLID 300 ML IV SCH (21:09)
[2018-10-12] MEDS: PRAMIPEXOLE DI-HCL 0.25 MG TABLET PO SCH (21:11)
[2018-10-12] MEDS: GABAPENTIN 300 MG CAPSULE PO SCH (21:11)
[2018-10-12] MEDS: SIMVASTATIN 10 MG TABLET PO SCH (21:11)
[2018-10-12 23:08] LABS: BILIRUBIN,URINE NEGATIVE (NEGATIVE); BLOOD, URINE 2+ (NEGATIVE); CLARITY/URINE CLOUDY (CLEAR); COLOR,URINE YELLOW (YELLOW); GLUCOSE,URINE NEGATIVE (NEGATIVE); KETONES,URINE TRACE (NEGATIVE); LEUKOCYTE ESTERASE ,URINE 3+ (NEGATIVE); NITRITE, URINE NEGATIVE (NEGATIVE); PROTEIN URINE 1+ (NEGATIVE)
[2018-10-12 23:15] LABS: BACTERIA,URINE MANY /HPF (None Seen); RBC,URINE 20-50 /HPF (0-3); WBC,URINE >100 /HPF (0-3)
[2018-10-12 23:16] LABS: YEAST,URINE Few /HPF (None Seen)
[2018-10-13] VITALS (36 sets, daily range): BP systolic 85–136
[2018-10-13] MEDS: ACETAMINOPHEN 325 MG TABLET NG PRN ×3 (03:52→20:40)
[2018-10-13] MEDS: INSULIN LISPRO SLIDING SCALE 100 UNITS/ML VIAL (humaLOG) SUBCUT PRN ×4 (06:34→21:04)
[2018-10-13 07:12] LABS: HEMATOCRIT 26.5 % (36-48); HEMOGLOBIN 8.1 g/dL (12.0-16.0); WHITE BLOOD COUNT (AUTO) 6.2 K/uL (4.8-10.8)
[2018-10-13 07:13] LABS: BASOPHILS % (AUTO) 0.2 % (0.0-2.0); EOSINOPHILS % (AUTO) 0.4 % (0.0-4.0); LYMPHOCYTES # (AUTO) 0.5 K/uL (1.0-5.5); LYMPHOCYTES % (AUTO) 8.4 % (20.5-51.5); MEAN CORPUSCULAR HEMOGLOBIN 23 pg (27-31); MEAN CORPUSCULAR HGB CONC 31 % (32-36); MEAN CORPUSCULAR VOLUME 76 fL (79.0-98.0); MONOCYTES # (AUTO) 0.4 K/uL (0.0-1.0); MONOCYTES % (AUTO) 5.8 % (1.7-9.3); NEUTROPHILS # (AUTO) 5.3 K/uL (1.8-7.7); NEUTROPHILS % (AUTO) 85.2 % (40.0-70.0); PLATELET COUNT (AUTO) 224 K/uL (130-430); RED CELL DISTRIBUTION WIDTH 19.6 % (9.0-15.0)
[2018-10-13 07:31] LABS: ALANINE AMINOTRANSFERASE 9 U/L (12-78); ANION GAP 3 (5-15); ASPARTATE AMINOTRANSFERASE 21 U/L (10-37); CALCIUM 8.1 mg/dL (8.4-11.0); CHLORIDE 104 mmol/L (98-107); CREATININE 1.68 mg/dL (0.55-1.30); GLUCOSE 247 mg/dL (70-99); SODIUM SERUM 136 mmol/L (136-145); TOTAL BILIRUBIN 0.5 mg/dL (0.0-1.0)
[2018-10-13 07:41] LABS: POTASSIUM 5.9 mmol/L (3.5-5.1); UREA NITROGEN, BLOOD 114 mg/dL (8-21)
[2018-10-13] MEDS: CEFEPIME 1 GM in D5W 50 ML IV SCH ×2 (09:19→20:39)
[2018-10-13 09:21] LABS: PROTHROMBIN TIME 11.1 SECS (9.5-12.5)
[2018-10-13 09:22] LABS: INR 1.1 (0.8-1.2)
[2018-10-13] MEDS: LINEZOLID 300 ML IV SCH ×2 (10:22→20:39)
[2018-10-13] MEDS: OXYBUTYNIN CHLORIDE 5 MG TABLET PO SCH ×2 (10:23→20:40)
[2018-10-13] MEDS: DIGOXIN 0.125 MG TABLET PO SCH (10:23)
[2018-10-13] MEDS: IBUPROFEN 600 MG TABLET PO PRN (10:23)
[2018-10-13] MEDS: DILTIAZEM HCL 120 MG CAP.SR.24H PO SCH (10:24)
[2018-10-13] MEDS: DOCUSATE SODIUM 100 MG CAPSULE PO SCH ×2 (10:24→20:40)
[2018-10-13] MEDS: FAMOTIDINE 20 MG TABLET PO SCH ×2 (10:24→20:40)
[2018-10-13] MEDS: METOPROLOL TARTRATE 25 MG TABLET PO SCH ×2 (10:25→20:42)
[2018-10-13] MEDS: BALSAM PERU/CASTOR OIL 60 GM OINT...G. TP SCH (11:00)
[2018-10-13] MEDS: FLUCONAZOLE 100 mg/ NS 50 ML IV SCH (12:08)
[2018-10-13] MEDS: D5/0.45 NS 1,000 ML IV SCH (15:00)
[2018-10-13] MEDS ORDERED: ETOMIDATE 20 MG/ 10 ML VIAL (AMIDATE) IVP ONE (16:02)
[2018-10-13] MEDS: GABAPENTIN 300 MG CAPSULE PO SCH (20:40)
[2018-10-13] MEDS: SIMVASTATIN 10 MG TABLET PO SCH (20:40)
[2018-10-13] MEDS: PRAMIPEXOLE DI-HCL 0.25 MG TABLET PO SCH (20:40)
[2018-10-14] VITALS (32 sets, daily range): BP systolic 94–145
[2018-10-14] MEDS: ACETAMINOPHEN 325 MG TABLET NG PRN (06:14)
[2018-10-14] MEDS: INSULIN LISPRO SLIDING SCALE 100 UNITS/ML VIAL (humaLOG) SUBCUT PRN ×4 (06:15→21:00)
[2018-10-14] MEDS: FAMOTIDINE 20 MG TABLET PO SCH ×2 (10:02→20:16)
[2018-10-14] MEDS: DOCUSATE SODIUM 100 MG CAPSULE PO SCH ×2 (10:02→20:14)
[2018-10-14] MEDS: OXYBUTYNIN CHLORIDE 5 MG TABLET PO SCH ×2 (10:02→20:14)
[2018-10-14] MEDS: DILTIAZEM HCL 120 MG CAP.SR.24H PO SCH (10:03)
[2018-10-14] MEDS: METOPROLOL TARTRATE 25 MG TABLET PO SCH ×2 (10:03→20:15)
[2018-10-14] MEDS: DIGOXIN 0.125 MG TABLET PO SCH (10:04)
[2018-10-14] MEDS: BALSAM PERU/CASTOR OIL 60 GM OINT...G. TP SCH (10:05)
[2018-10-14] MEDS: CEFEPIME 1 GM in D5W 50 ML IV SCH ×2 (10:06→20:13)
[2018-10-14] MEDS: LINEZOLID 300 ML IV SCH ×2 (10:27→20:14)
[2018-10-14] MEDS ORDERED: SODIUM POLYSTYRENE SULFONATE 15 GM/60 ML UDBTL GT ONE (10:30)
[2018-10-14] MEDS: D5/0.45 NS 1,000 ML IV SCH (10:49)
[2018-10-14 11:20] LABS: ANION GAP 7 (5-15); CALCIUM 7.9 mg/dL (8.4-11.0); CHLORIDE 101 mmol/L (98-107); CREATININE 2.16 mg/dL (0.55-1.30); GLUCOSE 254 mg/dL (70-99); SODIUM SERUM 134 mmol/L (136-145)
[2018-10-14 11:25] LABS: POTASSIUM 6.1 mmol/L (3.5-5.1)
[2018-10-14 11:26] LABS: UREA NITROGEN, BLOOD 133 mg/dL (8-21)
[2018-10-14] MEDS: FLUCONAZOLE 100 mg/ NS 50 ML IV SCH (11:41)
[2018-10-14] MEDS ORDERED: SODIUM POLYSTYRENE SULFONATE 15 GM/60 ML UDBTL PO ONE ×2 (12:45→18:45)
[2018-10-14 16:48] LABS: ANION GAP 4 (5-15); CALCIUM 7.2 mg/dL (8.4-11.0); CHLORIDE 101 mmol/L (98-107); CREATININE 2.23 mg/dL (0.55-1.30); GLUCOSE 240 mg/dL (70-99); SODIUM SERUM 131 mmol/L (136-145)
[2018-10-14 16:57] LABS: UREA NITROGEN, BLOOD 130 mg/dL (8-21)
[2018-10-14] MEDS ORDERED: HEPARIN SODIUM,PORCINE 5000 UNITS/ML VIAL ONE (17:25)
[2018-10-14] MEDS: PRAMIPEXOLE DI-HCL 0.25 MG TABLET PO SCH (20:16)
[2018-10-14] MEDS: SIMVASTATIN 10 MG TABLET PO SCH (20:16)
[2018-10-14] MEDS: GABAPENTIN 300 MG CAPSULE PO SCH (20:16)
[2018-10-15] VITALS (32 sets, daily range): BP systolic 83–170
[2018-10-15] MEDS: D5/0.45 NS 1,000 ML IV SCH ×3 (00:30→18:03)
[2018-10-15 05:29] LABS: RED BLOOD CELL COUNT(AUTO) 3.35 MIL/uL (4.2-6.2); WHITE BLOOD COUNT (AUTO) 6.2 K/uL (4.8-10.8)
[2018-10-15 05:30] LABS: HEMATOCRIT 25.1 % (36-48); HEMOGLOBIN 7.8 g/dL (12.0-16.0); MEAN CORPUSCULAR HEMOGLOBIN 23 pg (27-31); MEAN CORPUSCULAR HGB CONC 31 % (32-36); MEAN CORPUSCULAR VOLUME 75 fL (79.0-98.0)
[2018-10-15 05:31] LABS: BASOPHILS % (AUTO) 0.3 % (0.0-2.0); EOSINOPHILS % (AUTO) 0.7 % (0.0-4.0); LYMPHOCYTES % (AUTO) 7.2 % (20.5-51.5); MONOCYTES % (AUTO) 7.5 % (1.7-9.3); NEUTROPHILS # (AUTO) 5.2 K/uL (1.8-7.7); NEUTROPHILS % (AUTO) 84.3 % (40.0-70.0); PLATELET COUNT (AUTO) 205 K/uL (130-430); RED CELL DISTRIBUTION WIDTH 19.9 % (9.0-15.0)
[2018-10-15 05:32] LABS: LYMPHOCYTES # (AUTO) 0.4 K/uL (1.0-5.5); MONOCYTES # (AUTO) 0.5 K/uL (0.0-1.0)
[2018-10-15 05:37] LABS: ANION GAP 8 (5-15); CALCIUM 7.2 mg/dL (8.4-11.0); CHLORIDE 100 mmol/L (98-107); CREATININE 1.75 mg/dL (0.55-1.30); GLUCOSE 265 mg/dL (70-99); POTASSIUM 4.3 mmol/L (3.5-5.1); SODIUM SERUM 134 mmol/L (136-145); UREA NITROGEN, BLOOD 97 mg/dL (8-21)
[2018-10-15 05:44] LABS: ALANINE AMINOTRANSFERASE 7 U/L (12-78); ALBUMIN 0.8 g/dL (3.4-4.8); ASPARTATE AMINOTRANSFERASE 21 U/L (10-37); TOTAL BILIRUBIN 0.5 mg/dL (0.0-1.0)
[2018-10-15] MEDS: INSULIN LISPRO SLIDING SCALE 100 UNITS/ML VIAL (humaLOG) SUBCUT PRN ×4 (05:52→21:22)
[2018-10-15] MEDS: CEFEPIME 1 GM in D5W 50 ML IV SCH ×2 (08:19→21:17)
[2018-10-15] MEDS: FAMOTIDINE 20 MG TABLET PO SCH ×2 (08:20→21:16)
[2018-10-15] MEDS: LINEZOLID 300 ML IV SCH ×2 (08:20→22:47)
[2018-10-15] MEDS: OXYBUTYNIN CHLORIDE 5 MG TABLET PO SCH ×2 (08:20→21:16)
[2018-10-15] MEDS: DOCUSATE SODIUM 100 MG CAPSULE PO SCH ×2 (08:21→21:16)
[2018-10-15] MEDS: DILTIAZEM HCL 120 MG CAP.SR.24H PO SCH (08:24)
[2018-10-15] MEDS: METOPROLOL TARTRATE 25 MG TABLET PO SCH ×2 (08:25→21:16)
[2018-10-15] MEDS: BALSAM PERU/CASTOR OIL 60 GM OINT...G. TP SCH (08:27)
[2018-10-15] MEDS: FLUCONAZOLE 100 mg/ NS 50 ML IV SCH (10:57)
[2018-10-15] MEDS: GABAPENTIN 300 MG CAPSULE PO SCH (21:16)
[2018-10-15] MEDS: PRAMIPEXOLE DI-HCL 0.25 MG TABLET PO SCH (21:16)
[2018-10-15] MEDS: SIMVASTATIN 10 MG TABLET PO SCH (21:16)
[2018-10-16] VITALS (28 sets, daily range): BP systolic 94–160
[2018-10-16] MEDS: D5/0.45 NS 1,000 ML IV SCH ×2 (05:54→16:57)
[2018-10-16] MEDS: INSULIN LISPRO SLIDING SCALE 100 UNITS/ML VIAL (humaLOG) SUBCUT PRN ×4 (06:37→21:21)
[2018-10-16 07:51] LABS: HEMOGLOBIN 7.5 g/dL (12.0-16.0); MEAN CORPUSCULAR HEMOGLOBIN 23 pg (27-31); MEAN CORPUSCULAR VOLUME 74 fL (79.0-98.0); RED BLOOD CELL COUNT(AUTO) 3.24 MIL/uL (4.2-6.2)
[2018-10-16 07:52] LABS: BASOPHILS % (AUTO) 0.2 % (0.0-2.0); EOSINOPHILS % (AUTO) 0.3 % (0.0-4.0); LYMPHOCYTES # (AUTO) 0.4 K/uL (1.0-5.5); LYMPHOCYTES % (AUTO) 6.7 % (20.5-51.5); MEAN CORPUSCULAR HGB CONC 31 % (32-36); MONOCYTES # (AUTO) 0.3 K/uL (0.0-1.0); MONOCYTES % (AUTO) 4.7 % (1.7-9.3); NEUTROPHILS # (AUTO) 5.3 K/uL (1.8-7.7); NEUTROPHILS % (AUTO) 88.1 % (40.0-70.0); PLATELET COUNT (AUTO) 212 K/uL (130-430); RED CELL DISTRIBUTION WIDTH 19.6 % (9.0-15.0)
[2018-10-16 08:11] LABS: ANION GAP 9 (5-15); CHLORIDE 97 mmol/L (98-107); CREATININE 1.77 mg/dL (0.55-1.30); GLUCOSE 288 mg/dL (70-99); POTASSIUM 3.4 mmol/L (3.5-5.1); SODIUM SERUM 132 mmol/L (136-145); UREA NITROGEN, BLOOD 99 mg/dL (8-21)
[2018-10-16 08:16] LABS: CALCIUM 6.7 mg/dL (8.4-11.0)
[2018-10-16 08:17] LABS: ALANINE AMINOTRANSFERASE 9 U/L (12-78); ALBUMIN 0.9 g/dL (3.4-4.8); ASPARTATE AMINOTRANSFERASE 22 U/L (10-37); TOTAL BILIRUBIN 0.5 mg/dL (0.0-1.0)
[2018-10-16] MEDS: DOCUSATE SODIUM 100 MG CAPSULE PO SCH ×2 (09:32→21:00)
[2018-10-16] MEDS: METOPROLOL TARTRATE 25 MG TABLET PO SCH ×2 (09:32→21:12)
[2018-10-16] MEDS: FAMOTIDINE 20 MG TABLET PO SCH ×2 (09:32→21:11)
[2018-10-16] MEDS: CEFEPIME 1 GM in D5W 50 ML IV SCH (09:33)
[2018-10-16] MEDS: DILTIAZEM HCL 120 MG CAP.SR.24H PO SCH (09:33)
[2018-10-16] MEDS: OXYBUTYNIN CHLORIDE 5 MG TABLET PO SCH ×2 (09:33→21:12)
[2018-10-16] MEDS: LINEZOLID 300 ML IV SCH (09:34)
[2018-10-16] MEDS: BALSAM PERU/CASTOR OIL 60 GM OINT...G. TP SCH (09:38)
[2018-10-16 10:07] LABS: HEPATITIS A AB, IgM Negative (Negative); HEPATITIS B CORE AB, IgM Negative (Negative); HEPATITIS B SURFACE AG Negative (Negative)
[2018-10-16] MEDS: FLUCONAZOLE 100 mg/ NS 50 ML IV SCH (11:42)
[2018-10-16] MEDS: PIPERACILLIN/TAZO 2.25G/DEX-IS 50 ML IV SCH ×3 (13:08→23:37)
[2018-10-16] MEDS: SIMVASTATIN 10 MG TABLET PO SCH (21:11)
[2018-10-16] MEDS: GABAPENTIN 300 MG CAPSULE PO SCH (21:12)
[2018-10-16] MEDS: PRAMIPEXOLE DI-HCL 0.25 MG TABLET PO SCH (21:12)
[2018-10-17] VITALS (33 sets, daily range): BP systolic 86–141
[2018-10-17] MEDS: PIPERACILLIN/TAZO 2.25G/DEX-IS 50 ML IV SCH ×4 (05:30→23:28)
[2018-10-17] MEDS: D5/0.45 NS 1,000 ML IV SCH ×2 (05:30→21:32)
[2018-10-17 06:04] LABS: HEMATOCRIT 23.8 % (36-48); HEMOGLOBIN 7.4 g/dL (12.0-16.0); MEAN CORPUSCULAR HEMOGLOBIN 24 pg (27-31); MEAN CORPUSCULAR HGB CONC 31 % (32-36); MEAN CORPUSCULAR VOLUME 75 fL (79.0-98.0); NEUTROPHILS % (AUTO) 85.6 % (40.0-70.0); PLATELET COUNT (AUTO) 190 K/uL (130-430); RED BLOOD CELL COUNT(AUTO) 3.17 MIL/uL (4.2-6.2); RED CELL DISTRIBUTION WIDTH 20.1 % (9.0-15.0); WHITE BLOOD COUNT (AUTO) 7.5 K/uL (4.8-10.8)
[2018-10-17 06:05] LABS: BASOPHILS % (AUTO) 0.3 % (0.0-2.0); EOSINOPHILS % (AUTO) 0.4 % (0.0-4.0); LYMPHOCYTES # (AUTO) 0.7 K/uL (1.0-5.5); LYMPHOCYTES % (AUTO) 9.3 % (20.5-51.5); MONOCYTES # (AUTO) 0.3 K/uL (0.0-1.0); MONOCYTES % (AUTO) 4.4 % (1.7-9.3); NEUTROPHILS # (AUTO) 6.5 K/uL (1.8-7.7)
[2018-10-17 06:19] LABS: ALANINE AMINOTRANSFERASE 7 U/L (12-78); ALBUMIN 0.8 g/dL (3.4-4.8); ANION GAP 6 (5-15); ASPARTATE AMINOTRANSFERASE 23 U/L (10-37); CHLORIDE 99 mmol/L (98-107); CREATININE 1.82 mg/dL (0.55-1.30); GLUCOSE 174 mg/dL (70-99); POTASSIUM 3.1 mmol/L (3.5-5.1); SODIUM SERUM 133 mmol/L (136-145); TOTAL BILIRUBIN 0.7 mg/dL (0.0-1.0)
[2018-10-17 06:22] LABS: CALCIUM 6.7 mg/dL (8.4-11.0); UREA NITROGEN, BLOOD 102 mg/dL (8-21)
[2018-10-17] MEDS: INSULIN LISPRO SLIDING SCALE 100 UNITS/ML VIAL (humaLOG) SUBCUT PRN ×4 (06:33→21:37)
[2018-10-17] MEDS ORDERED: KCL 40 mEq in 100 mL (PREMIX) 100 ML IV ONE ×2 (07:00→07:06)
[2018-10-17] MEDS: DOCUSATE SODIUM 100 MG CAPSULE PO SCH ×2 (08:32→21:00)
[2018-10-17] MEDS: OXYBUTYNIN CHLORIDE 5 MG TABLET PO SCH ×2 (08:32→21:31)
[2018-10-17] MEDS: DILTIAZEM HCL 120 MG CAP.SR.24H PO SCH (08:32)
[2018-10-17] MEDS: METOPROLOL TARTRATE 25 MG TABLET PO SCH ×2 (08:33→21:00)
[2018-10-17] MEDS: FAMOTIDINE 20 MG TABLET PO SCH ×2 (08:33→21:31)
[2018-10-17] MEDS: BALSAM PERU/CASTOR OIL 60 GM OINT...G. TP SCH (08:33)
[2018-10-17] MEDS: FLUCONAZOLE 100 mg/ NS 50 ML IV SCH (11:08)
[2018-10-17] MEDS ORDERED: FUROSEMIDE 20 MG/2 ML VIAL IVP ONE (11:15)
[2018-10-17] MEDS ORDERED: POTASSIUM CHLORIDE 20 MEQ/PKT PACKET PO ONE (11:15)
[2018-10-17] MEDS ORDERED: ALBUMIN HUMAN 25% 50 ML IV SCH (11:15)
[2018-10-17] MEDS: ALBUMIN HUMAN 25% 100 ML IV SCH ×2 (17:11→17:56)
[2018-10-17] MEDS: SIMVASTATIN 10 MG TABLET PO SCH (21:31)
[2018-10-17] MEDS: PRAMIPEXOLE DI-HCL 0.25 MG TABLET PO SCH (21:31)
[2018-10-17] MEDS: GABAPENTIN 300 MG CAPSULE PO SCH (21:31)
[2018-10-17] MEDS ORDERED: NOREPINEPHRINE BITARTRATE 4 MG in D5W 246 ML IV PRN (22:45)
[2018-10-17] MEDS ORDERED: NOREPINEPHRINE 4 MG/4 ML VIAL IV ONE (23:03)
[2018-10-17] MEDS: NOREPINEPHRINE BITARTRATE 4 MG in NS 246 ML IV PRN (23:13)
[2018-10-18] VITALS (31 sets, daily range): BP systolic 94–146
[2018-10-18] MEDS: PIPERACILLIN/TAZO 2.25G/DEX-IS 50 ML IV SCH ×3 (05:37→17:22)
[2018-10-18] MEDS: INSULIN LISPRO SLIDING SCALE 100 UNITS/ML VIAL (humaLOG) SUBCUT PRN ×4 (06:20→21:25)
[2018-10-18 07:12] LABS: ALANINE AMINOTRANSFERASE 9 U/L (12-78); ALBUMIN 1.6 g/dL (3.4-4.8); ANION GAP 10 (5-15); ASPARTATE AMINOTRANSFERASE 21 U/L (10-37); CALCIUM 7.1 mg/dL (8.4-11.0); CHLORIDE 97 mmol/L (98-107); CREATININE 1.96 mg/dL (0.55-1.30); GLUCOSE 177 mg/dL (70-99); POTASSIUM 3.8 mmol/L (3.5-5.1); SODIUM SERUM 133 mmol/L (136-145); TOTAL BILIRUBIN 1.2 mg/dL (0.0-1.0)
[2018-10-18 07:23] LABS: UREA NITROGEN, BLOOD 106 mg/dL (8-21)
[2018-10-18 07:39] LABS: WHITE BLOOD COUNT (AUTO) 10.3 K/uL (4.8-10.8)
[2018-10-18 07:40] LABS: HEMATOCRIT 24.7 % (36-48); HEMOGLOBIN 7.9 g/dL (12.0-16.0); LYMPHOCYTES % (AUTO) 6.1 % (20.5-51.5); MEAN CORPUSCULAR HEMOGLOBIN 24 pg (27-31); MEAN CORPUSCULAR HGB CONC 32 % (32-36); MEAN CORPUSCULAR VOLUME 74 fL (79.0-98.0); MONOCYTES % (AUTO) 3.5 % (1.7-9.3); NEUTROPHILS % (AUTO) 89.8 % (40.0-70.0); PLATELET COUNT (AUTO) 231 K/uL (130-430); RED BLOOD CELL COUNT(AUTO) 3.36 MIL/uL (4.2-6.2); RED CELL DISTRIBUTION WIDTH 20.2 % (9.0-15.0)
[2018-10-18 07:41] LABS: BASOPHILS % (AUTO) 0.1 % (0.0-2.0); EOSINOPHILS % (AUTO) 0.5 % (0.0-4.0); LYMPHOCYTES # (AUTO) 0.6 K/uL (1.0-5.5); MONOCYTES # (AUTO) 0.4 K/uL (0.0-1.0); NEUTROPHILS # (AUTO) 9.3 K/uL (1.8-7.7)
[2018-10-18] MEDS: FAMOTIDINE 20 MG TABLET PO SCH ×2 (08:32→21:11)
[2018-10-18] MEDS: OXYBUTYNIN CHLORIDE 5 MG TABLET PO SCH ×2 (08:32→21:10)
[2018-10-18] MEDS: DOCUSATE SODIUM 100 MG CAPSULE PO SCH ×2 (08:32→21:11)
[2018-10-18] MEDS: BALSAM PERU/CASTOR OIL 60 GM OINT...G. TP SCH (08:34)
[2018-10-18] MEDS: METOPROLOL TARTRATE 25 MG TABLET PO SCH ×3 (08:48→21:12)
[2018-10-18] MEDS: DILTIAZEM HCL 120 MG CAP.SR.24H PO SCH (08:48)
[2018-10-18] MEDS ORDERED: HEPARIN SODIUM,PORCINE 5000 UNITS/ML VIAL SUBCUT ONE (09:15)
[2018-10-18] MEDS: ALBUTEROL SULFATE 0.083% 2.5 MG/3 ML VIAL.NEB INH PRN (09:39)
[2018-10-18] MEDS: FLUCONAZOLE 100 mg/ NS 50 ML IV SCH (11:33)
[2018-10-18] MEDS: NOREPINEPHRINE BITARTRATE 4 MG in NS 246 ML IV PRN (17:25)
[2018-10-18] MEDS: D5/0.45 NS 1,000 ML IV SCH (17:44)
[2018-10-18] MEDS: GABAPENTIN 300 MG CAPSULE PO SCH (21:10)
[2018-10-18] MEDS: PRAMIPEXOLE DI-HCL 0.25 MG TABLET PO SCH (21:11)
[2018-10-18] MEDS: SIMVASTATIN 10 MG TABLET PO SCH (21:12)
[2018-10-18] MEDS: HEPARIN SODIUM,PORCINE 5000 UNITS/ML VIAL SUBCUT SCH (21:27)
[2018-10-19] VITALS (31 sets, daily range): BP systolic 91–119
[2018-10-19] MEDS: PIPERACILLIN/TAZO 2.25G/DEX-IS 50 ML IV SCH ×4 (00:08→17:28)
[2018-10-19 05:39] LABS: ALANINE AMINOTRANSFERASE 10 U/L (12-78); ALBUMIN 1.2 g/dL (3.4-4.8); ANION GAP 8 (5-15); ASPARTATE AMINOTRANSFERASE 21 U/L (10-37); CHLORIDE 96 mmol/L (98-107); CREATININE 2.38 mg/dL (0.55-1.30); GLUCOSE 201 mg/dL (70-99); POTASSIUM 3.9 mmol/L (3.5-5.1); SODIUM SERUM 129 mmol/L (136-145); TOTAL BILIRUBIN 0.9 mg/dL (0.0-1.0)
[2018-10-19 05:43] LABS: CALCIUM 6.9 mg/dL (8.4-11.0)
[2018-10-19 05:46] LABS: UREA NITROGEN, BLOOD 111 mg/dL (8-21)
[2018-10-19 05:47] LABS: WHITE BLOOD COUNT (AUTO) 8.5 K/uL (4.8-10.8)
[2018-10-19 05:48] LABS: HEMATOCRIT 23.8 % (36-48); HEMOGLOBIN 7.8 g/dL (12.0-16.0); MEAN CORPUSCULAR HEMOGLOBIN 24 pg (27-31); MEAN CORPUSCULAR VOLUME 73 fL (79.0-98.0); RED BLOOD CELL COUNT(AUTO) 3.24 MIL/uL (4.2-6.2)
[2018-10-19 05:49] LABS: BASOPHILS % (AUTO) 0.3 % (0.0-2.0); EOSINOPHILS % (AUTO) 0.3 % (0.0-4.0); LYMPHOCYTES # (AUTO) 0.7 K/uL (1.0-5.5); LYMPHOCYTES % (AUTO) 7.8 % (20.5-51.5); MEAN CORPUSCULAR HGB CONC 32 % (32-36); MONOCYTES # (AUTO) 0.5 K/uL (0.0-1.0); MONOCYTES % (AUTO) 5.6 % (1.7-9.3); NEUTROPHILS # (AUTO) 7.3 K/uL (1.8-7.7); PLATELET COUNT (AUTO) 174 K/uL (130-430); RED CELL DISTRIBUTION WIDTH 20.1 % (9.0-15.0)
[2018-10-19] MEDS: INSULIN LISPRO SLIDING SCALE 100 UNITS/ML VIAL (humaLOG) SUBCUT PRN ×4 (06:42→23:09)
[2018-10-19] MEDS ORDERED: CALCIUM GLUCONATE 2 GM in NS 100 ML IV ONE (07:00)
[2018-10-19] MEDS: OXYBUTYNIN CHLORIDE 5 MG TABLET PO SCH ×2 (08:16→21:00)
[2018-10-19] MEDS: FAMOTIDINE 20 MG TABLET PO SCH ×2 (08:16→23:13)
[2018-10-19] MEDS: DOCUSATE SODIUM 100 MG CAPSULE PO SCH ×2 (08:19→21:00)
[2018-10-19] MEDS: METOPROLOL TARTRATE 25 MG TABLET PO SCH ×2 (08:19→21:00)
[2018-10-19] MEDS: DILTIAZEM HCL 120 MG CAP.SR.24H PO SCH (08:20)
[2018-10-19] MEDS: HEPARIN SODIUM,PORCINE 5000 UNITS/ML VIAL SUBCUT SCH ×2 (08:22→23:11)
[2018-10-19] MEDS: BALSAM PERU/CASTOR OIL 60 GM OINT...G. TP SCH (08:22)
[2018-10-19] MEDS: D5/0.45 NS 1,000 ML IV SCH (16:00)
[2018-10-19] MEDS: SIMVASTATIN 10 MG TABLET PO SCH (23:13)
[2018-10-19] MEDS: PRAMIPEXOLE DI-HCL 0.25 MG TABLET PO SCH (23:14)
[2018-10-20] VITALS (36 sets, daily range): BP systolic 88–149
[2018-10-20] MEDS: PIPERACILLIN/TAZO 2.25G/DEX-IS 50 ML IV SCH ×4 (01:00→18:00)
[2018-10-20] MEDS: INSULIN LISPRO SLIDING SCALE 100 UNITS/ML VIAL (humaLOG) SUBCUT PRN ×4 (06:08→21:19)
[2018-10-20 06:46] LABS: ANION GAP 12 (5-15); CALCIUM 7.3 mg/dL (8.4-11.0); CHLORIDE 97 mmol/L (98-107); CREATININE 2.68 mg/dL (0.55-1.30); GLUCOSE 196 mg/dL (70-99); POTASSIUM 4.3 mmol/L (3.5-5.1); SODIUM SERUM 134 mmol/L (136-145)
[2018-10-20 06:52] LABS: HEMOGLOBIN 7.7 g/dL (12.0-16.0); RED BLOOD CELL COUNT(AUTO) 3.18 MIL/uL (4.2-6.2); WHITE BLOOD COUNT (AUTO) 10.5 K/uL (4.8-10.8)
[2018-10-20 06:53] LABS: MEAN CORPUSCULAR HEMOGLOBIN 24 pg (27-31); MEAN CORPUSCULAR HGB CONC 32 % (32-36); MEAN CORPUSCULAR VOLUME 75 fL (79.0-98.0); PLATELET COUNT (AUTO) 159 K/uL (130-430); RED CELL DISTRIBUTION WIDTH 20.5 % (9.0-15.0)
[2018-10-20 06:54] LABS: BASOPHILS % (AUTO) 0.2 % (0.0-2.0); EOSINOPHILS % (AUTO) 0.5 % (0.0-4.0); LYMPHOCYTES # (AUTO) 0.8 K/uL (1.0-5.5); LYMPHOCYTES % (AUTO) 7.3 % (20.5-51.5); MONOCYTES % (AUTO) 6.1 % (1.7-9.3); NEUTROPHILS % (AUTO) 85.9 % (40.0-70.0)
[2018-10-20 06:55] LABS: ALANINE AMINOTRANSFERASE 9 U/L (12-78); ALBUMIN 1.1 g/dL (3.4-4.8); ASPARTATE AMINOTRANSFERASE 23 U/L (10-37); EOSINOPHILS # (AUTO) 0.1 K/uL (0.0-0.4); MONOCYTES # (AUTO) 0.6 K/uL (0.0-1.0); TOTAL BILIRUBIN 0.9 mg/dL (0.0-1.0)
[2018-10-20 07:00] LABS: UREA NITROGEN, BLOOD 117 mg/dL (8-21)
[2018-10-20] MEDS: DOCUSATE SODIUM 100 MG CAPSULE PO SCH ×2 (08:31→21:00)
[2018-10-20] MEDS: HEPARIN SODIUM,PORCINE 5000 UNITS/ML VIAL SUBCUT SCH ×2 (08:43→21:20)
[2018-10-20] MEDS: NOREPINEPHRINE BITARTRATE 4 MG in NS 246 ML IV PRN (08:44)
[2018-10-20] MEDS: DILTIAZEM HCL 120 MG CAP.SR.24H PO SCH (08:45)
[2018-10-20] MEDS: METOPROLOL TARTRATE 25 MG TABLET PO SCH ×2 (08:46→21:00)
[2018-10-20] MEDS: OXYBUTYNIN CHLORIDE 5 MG TABLET PO SCH ×2 (08:46→21:00)
[2018-10-20] MEDS: BALSAM PERU/CASTOR OIL 60 GM OINT...G. TP SCH (08:46)
[2018-10-20] MEDS: FAMOTIDINE 20 MG TABLET PO SCH ×2 (08:46→21:06)
[2018-10-20] MEDS: D5/0.45 NS 1,000 ML IV SCH (13:17)
[2018-10-20] MEDS: SIMVASTATIN 10 MG TABLET PO SCH (21:06)
[2018-10-20] MEDS: PRAMIPEXOLE DI-HCL 0.25 MG TABLET PO SCH (21:07)
[2018-10-21] VITALS (36 sets, daily range): BP systolic 66–156
[2018-10-21] MEDS: PIPERACILLIN/TAZO 2.25G/DEX-IS 50 ML IV SCH ×5 (00:09→23:35)
[2018-10-21 05:43] LABS: ANION GAP 10 (5-15); CALCIUM 7.3 mg/dL (8.4-11.0); CHLORIDE 97 mmol/L (98-107); GLUCOSE 208 mg/dL (70-99); POTASSIUM 4.7 mmol/L (3.5-5.1); SODIUM SERUM 131 mmol/L (136-145)
[2018-10-21 05:49] LABS: ALANINE AMINOTRANSFERASE 8 U/L (12-78); ASPARTATE AMINOTRANSFERASE 21 U/L (10-37); TOTAL BILIRUBIN 0.7 mg/dL (0.0-1.0)
[2018-10-21 05:52] LABS: UREA NITROGEN, BLOOD 129 mg/dL (8-21)
[2018-10-21 05:54] LABS: RED BLOOD CELL COUNT(AUTO) 2.88 MIL/uL (4.2-6.2); WHITE BLOOD COUNT (AUTO) 9.1 K/uL (4.8-10.8)
[2018-10-21 05:55] LABS: HEMOGLOBIN 6.9 g/dL (12.0-16.0)
[2018-10-21 05:56] LABS: HEMATOCRIT 21.2 % (36-48); MEAN CORPUSCULAR HEMOGLOBIN 24 pg (27-31); MEAN CORPUSCULAR HGB CONC 32 % (32-36); MEAN CORPUSCULAR VOLUME 74 fL (79.0-98.0); PLATELET COUNT (AUTO) 123 K/uL (130-430)
[2018-10-21 05:57] LABS: BASOPHILS % (AUTO) 0.4 % (0.0-2.0); EOSINOPHILS % (AUTO) 0.4 % (0.0-4.0); LYMPHOCYTES # (AUTO) 0.7 K/uL (1.0-5.5); LYMPHOCYTES % (AUTO) 7.8 % (20.5-51.5); MONOCYTES # (AUTO) 0.6 K/uL (0.0-1.0); MONOCYTES % (AUTO) 6.2 % (1.7-9.3); NEUTROPHILS # (AUTO) 7.8 K/uL (1.8-7.7); NEUTROPHILS % (AUTO) 85.2 % (40.0-70.0)
[2018-10-21] MEDS: INSULIN LISPRO SLIDING SCALE 100 UNITS/ML VIAL (humaLOG) SUBCUT PRN ×4 (06:07→20:11)
[2018-10-21] MEDS: FAMOTIDINE 20 MG TABLET PO SCH ×2 (08:59→20:07)
[2018-10-21] MEDS: METOPROLOL TARTRATE 25 MG TABLET PO SCH ×2 (08:59→20:21)
[2018-10-21] MEDS: OXYBUTYNIN CHLORIDE 5 MG TABLET PO SCH ×2 (09:00→20:21)
[2018-10-21] MEDS: DILTIAZEM HCL 120 MG CAP.SR.24H PO SCH (09:00)
[2018-10-21] MEDS: DOCUSATE SODIUM 100 MG CAPSULE PO SCH ×2 (09:00→20:20)
[2018-10-21] MEDS: HEPARIN SODIUM,PORCINE 5000 UNITS/ML VIAL SUBCUT SCH ×2 (09:01→20:09)
[2018-10-21] MEDS: BALSAM PERU/CASTOR OIL 60 GM OINT...G. TP SCH (10:30)
[2018-10-21] MEDS ORDERED: NOREPINEPHRINE 4 MG/4 ML VIAL IV ONE (12:14)
[2018-10-21] MEDS ORDERED: NOREPINEPHRINE BITARTRATE 4 MG in NS 246 ML IV PRN (16:00)
[2018-10-21] MEDS: PRAMIPEXOLE DI-HCL 0.25 MG TABLET PO SCH (20:07)
[2018-10-21] MEDS: SIMVASTATIN 10 MG TABLET PO SCH (20:07)
[2018-10-22] VITALS (30 sets, daily range): BP systolic 93–122
[2018-10-22] MEDS: PIPERACILLIN/TAZO 2.25G/DEX-IS 50 ML IV SCH ×3 (06:19→17:00)
[2018-10-22] MEDS: INSULIN LISPRO SLIDING SCALE 100 UNITS/ML VIAL (humaLOG) SUBCUT PRN ×4 (06:21→21:21)
[2018-10-22 07:52] LABS: HEMATOCRIT 29.8 % (36-48); HEMOGLOBIN 9.6 g/dL (12.0-16.0); MEAN CORPUSCULAR HEMOGLOBIN 25 pg (27-31); MEAN CORPUSCULAR HGB CONC 32 % (32-36); MEAN CORPUSCULAR VOLUME 78 fL (79.0-98.0); PLATELET COUNT (AUTO) 131 K/uL (130-430); RED CELL DISTRIBUTION WIDTH 22.1 % (9.0-15.0)
[2018-10-22 07:53] LABS: BASOPHILS % (AUTO) 0.2 % (0.0-2.0); EOSINOPHILS % (AUTO) 0.1 % (0.0-4.0); LYMPHOCYTES # (AUTO) 0.7 K/uL (1.0-5.5); LYMPHOCYTES % (AUTO) 6.6 % (20.5-51.5); MONOCYTES # (AUTO) 0.5 K/uL (0.0-1.0); MONOCYTES % (AUTO) 5.3 % (1.7-9.3); NEUTROPHILS # (AUTO) 8.9 K/uL (1.8-7.7); NEUTROPHILS % (AUTO) 87.8 % (40.0-70.0)
[2018-10-22 07:54] LABS: WHITE BLOOD COUNT (AUTO) 10.1 K/uL (4.8-10.8)
[2018-10-22] MEDS: DOCUSATE SODIUM 100 MG CAPSULE PO SCH ×2 (08:06→21:00)
[2018-10-22] MEDS: FAMOTIDINE 20 MG TABLET PO SCH ×2 (08:06→21:03)
[2018-10-22] MEDS: OXYBUTYNIN CHLORIDE 5 MG TABLET PO SCH ×2 (08:07→21:00)
[2018-10-22] MEDS: BALSAM PERU/CASTOR OIL 60 GM OINT...G. TP SCH (08:09)
[2018-10-22] MEDS: HEPARIN SODIUM,PORCINE 5000 UNITS/ML VIAL SUBCUT SCH ×2 (08:11→21:04)
[2018-10-22] MEDS: DILTIAZEM HCL 120 MG CAP.SR.24H PO SCH (08:12)
[2018-10-22] MEDS: METOPROLOL TARTRATE 25 MG TABLET PO SCH ×2 (08:13→21:00)
[2018-10-22 13:17] LABS: ANION GAP 11 (5-15); CALCIUM 7.4 mg/dL (8.4-11.0); CHLORIDE 94 mmol/L (98-107); CREATININE 3.46 mg/dL (0.55-1.30); GLUCOSE 233 mg/dL (70-99); POTASSIUM 5.1 mmol/L (3.5-5.1); SODIUM SERUM 129 mmol/L (136-145)
[2018-10-22 13:23] LABS: ALANINE AMINOTRANSFERASE 11 U/L (12-78); ALBUMIN 1.1 g/dL (3.4-4.8); ASPARTATE AMINOTRANSFERASE 23 U/L (10-37); TOTAL BILIRUBIN 0.8 mg/dL (0.0-1.0)
[2018-10-22 13:30] LABS: UREA NITROGEN, BLOOD 128 mg/dL (8-21)
[2018-10-22] MEDS: SIMVASTATIN 10 MG TABLET PO SCH (21:03)
[2018-10-22] MEDS: PRAMIPEXOLE DI-HCL 0.25 MG TABLET PO SCH (21:03)
[2018-10-22] MEDS ORDERED: D5/0.45 NS 1,000 ML IV SCH (22:15)
[2018-10-23] VITALS (27 sets, daily range): BP systolic 89–158
[2018-10-23] MEDS ORDERED: D5/0.45 NS 1,000 ML IV PRN
[2018-10-23] MEDS: INSULIN LISPRO SLIDING SCALE 100 UNITS/ML VIAL (humaLOG) SUBCUT PRN ×2 (06:31→21:14)
[2018-10-23 08:10] LABS: ANION GAP 10 (5-15); CHLORIDE 94 mmol/L (98-107); GLUCOSE 365 mg/dL (70-99); POTASSIUM 5.1 mmol/L (3.5-5.1); SODIUM SERUM 129 mmol/L (136-145)
[2018-10-23 08:22] LABS: CREATININE 3.69 mg/dL (0.55-1.30)
[2018-10-23 08:49] LABS: CALCIUM 6.8 mg/dL (8.4-11.0); UREA NITROGEN, BLOOD 134 mg/dL (8-21)
[2018-10-23] MEDS ORDERED: SEVOFLURANE 15 MIN GAS INH ONE (09:00)
[2018-10-23] MEDS ORDERED: MIDAZOLAM HCL 5 MG/5 ML VIAL IVP ONE (09:00)
[2018-10-23] MEDS: DILTIAZEM HCL 120 MG CAP.SR.24H PO SCH (09:00)
[2018-10-23] MEDS ORDERED: LIDOCAINE/EPI 1% 1:100000 20 ML VIAL INJ ONE (09:00)
[2018-10-23] MEDS: METOPROLOL TARTRATE 25 MG TABLET PO SCH ×2 (09:00→21:18)
[2018-10-23] MEDS ORDERED: fentaNYL CITRATE/PF 100 MCG/2 ML AMP IVP ONE (09:00)
[2018-10-23] MEDS: HEPARIN SODIUM,PORCINE 5000 UNITS/ML VIAL SUBCUT SCH ×2 (09:00→21:00)
[2018-10-23] MEDS: DOCUSATE SODIUM 100 MG CAPSULE PO SCH ×2 (09:00→21:00)
[2018-10-23] MEDS ORDERED: LR 1,000 ML IV SCH (10:05)
[2018-10-23] MEDS ORDERED: HYDROmorphone 2 MG/ML VIAL IVP PRN ×3 (10:15)
[2018-10-23] MEDS ORDERED: MEPERIDINE HCL/PF 25 MG/ML DISP.SYRIN IVP PRN (10:15)
[2018-10-23] MEDS ORDERED: ePHEDrine sulfate 50 MG/ML VIAL IVP PRN (10:15)
[2018-10-23] MEDS ORDERED: DILTIAZEM HCL 25 MG/5 ML VIAL IVP PRN (10:15)
[2018-10-23] MEDS ORDERED: NALOXONE HCL 0.4 MG/ML AMP (NARCAN) IVP PRN (10:15)
[2018-10-23] MEDS ORDERED: MIDAZOLAM HCL 5 MG/5 ML VIAL IVP PRN (10:15)
[2018-10-23] MEDS: OXYBUTYNIN CHLORIDE 5 MG TABLET PO SCH ×2 (11:15→21:00)
[2018-10-23] MEDS: FAMOTIDINE 20 MG TABLET PO SCH ×2 (11:16→21:18)
[2018-10-23] MEDS: BALSAM PERU/CASTOR OIL 60 GM OINT...G. TP SCH (11:18)
[2018-10-23] MEDS: PRAMIPEXOLE DI-HCL 0.25 MG TABLET PO SCH (21:18)
[2018-10-23] MEDS: SIMVASTATIN 10 MG TABLET PO SCH (21:18)
[2018-10-23] MEDS ORDERED: COMMUNICATION ORDER XX ONE (21:45)
[2018-10-24] VITALS (31 sets, daily range): BP systolic 91–157
[2018-10-24 06:21] LABS: RED BLOOD CELL COUNT(AUTO) 3.69 MIL/uL (4.2-6.2)
[2018-10-24 06:22] LABS: HEMATOCRIT 29.2 % (36-48); HEMOGLOBIN 9.6 g/dL (12.0-16.0); MEAN CORPUSCULAR HEMOGLOBIN 26 pg (27-31); MEAN CORPUSCULAR HGB CONC 33 % (32-36); MEAN CORPUSCULAR VOLUME 79 fL (79.0-98.0); PLATELET COUNT (AUTO) 140 K/uL (130-430); RED CELL DISTRIBUTION WIDTH 22.4 % (9.0-15.0)
[2018-10-24 06:23] LABS: BASOPHILS % (AUTO) 0.3 % (0.0-2.0); EOSINOPHILS % (AUTO) 0.4 % (0.0-4.0); LYMPHOCYTES # (AUTO) 0.5 K/uL (1.0-5.5); LYMPHOCYTES % (AUTO) 6.8 % (20.5-51.5); MONOCYTES % (AUTO) 4.9 % (1.7-9.3); NEUTROPHILS % (AUTO) 87.6 % (40.0-70.0)
[2018-10-24 06:24] LABS: MONOCYTES # (AUTO) 0.4 K/uL (0.0-1.0)
[2018-10-24 07:09] LABS: ALANINE AMINOTRANSFERASE 6 U/L (12-78); ALBUMIN 0.9 g/dL (3.4-4.8); ANION GAP 8 (5-15); ASPARTATE AMINOTRANSFERASE 24 U/L (10-37); CALCIUM 7.2 mg/dL (8.4-11.0); CHLORIDE 97 mmol/L (98-107); CREATININE 3.05 mg/dL (0.55-1.30); GLUCOSE 144 mg/dL (70-99); POTASSIUM 4.7 mmol/L (3.5-5.1); SODIUM SERUM 133 mmol/L (136-145); TOTAL BILIRUBIN 0.8 mg/dL (0.0-1.0)
[2018-10-24 07:14] LABS: UREA NITROGEN, BLOOD 101 mg/dL (8-21)
[2018-10-24] MEDS: DILTIAZEM HCL 120 MG CAP.SR.24H PO SCH (08:32)
[2018-10-24] MEDS: METOPROLOL TARTRATE 25 MG TABLET PO SCH ×2 (08:33→21:26)
[2018-10-24] MEDS: DOCUSATE SODIUM 100 MG CAPSULE PO SCH ×2 (08:33→21:00)
[2018-10-24] MEDS: FAMOTIDINE 20 MG TABLET PO SCH ×2 (08:34→21:26)
[2018-10-24] MEDS: HEPARIN SODIUM,PORCINE 5000 UNITS/ML VIAL SUBCUT SCH ×2 (08:37→21:41)
[2018-10-24] MEDS: OXYBUTYNIN CHLORIDE 5 MG TABLET PO SCH ×2 (08:38→21:26)
[2018-10-24] MEDS: INSULIN LISPRO SLIDING SCALE 100 UNITS/ML VIAL (humaLOG) SUBCUT PRN ×2 (12:28→21:44)
[2018-10-24] MEDS: BALSAM PERU/CASTOR OIL 60 GM OINT...G. TP SCH (16:40)
[2018-10-24] MEDS: PRAMIPEXOLE DI-HCL 0.25 MG TABLET PO SCH (21:26)
[2018-10-24] MEDS: SIMVASTATIN 10 MG TABLET PO SCH (21:26)
[2018-10-25] VITALS (37 sets, daily range): BP systolic 97–154
[2018-10-25 06:20] LABS: HEMATOCRIT 28.6 % (36-48); HEMOGLOBIN 9.2 g/dL (12.0-16.0); MEAN CORPUSCULAR VOLUME 78 fL (79.0-98.0); RED BLOOD CELL COUNT(AUTO) 3.65 MIL/uL (4.2-6.2)
[2018-10-25 06:21] LABS: MEAN CORPUSCULAR HEMOGLOBIN 25 pg (27-31); MEAN CORPUSCULAR HGB CONC 32 % (32-36); PLATELET COUNT (AUTO) 162 K/uL (130-430); RED CELL DISTRIBUTION WIDTH 23.1 % (9.0-15.0)
[2018-10-25 06:22] LABS: BASOPHILS % (AUTO) 0.2 % (0.0-2.0); EOSINOPHILS % (AUTO) 0.3 % (0.0-4.0); LYMPHOCYTES # (AUTO) 0.8 K/uL (1.0-5.5); LYMPHOCYTES % (AUTO) 9.7 % (20.5-51.5); MONOCYTES % (AUTO) 4.6 % (1.7-9.3); NEUTROPHILS # (AUTO) 6.8 K/uL (1.8-7.7); NEUTROPHILS % (AUTO) 85.2 % (40.0-70.0)
[2018-10-25 06:23] LABS: MONOCYTES # (AUTO) 0.4 K/uL (0.0-1.0)
[2018-10-25 06:32] LABS: ANION GAP 11 (5-15); CALCIUM 7.3 mg/dL (8.4-11.0); CHLORIDE 96 mmol/L (98-107); CREATININE 3.27 mg/dL (0.55-1.30); GLUCOSE 184 mg/dL (70-99); SODIUM SERUM 132 mmol/L (136-145)
[2018-10-25] MEDS: INSULIN LISPRO SLIDING SCALE 100 UNITS/ML VIAL (humaLOG) SUBCUT PRN ×3 (06:38→17:38)
[2018-10-25 06:40] LABS: ALANINE AMINOTRANSFERASE 12 U/L (12-78); ASPARTATE AMINOTRANSFERASE 23 U/L (10-37); TOTAL BILIRUBIN 0.7 mg/dL (0.0-1.0)
[2018-10-25 07:05] LABS: UREA NITROGEN, BLOOD 114 mg/dL (8-21)
[2018-10-25] MEDS: OXYBUTYNIN CHLORIDE 5 MG TABLET PO SCH ×2 (08:09→21:00)
[2018-10-25] MEDS: FAMOTIDINE 20 MG TABLET PO SCH ×2 (08:09→21:31)
[2018-10-25] MEDS: HEPARIN SODIUM,PORCINE 5000 UNITS/ML VIAL SUBCUT SCH ×2 (08:12→21:36)
[2018-10-25] MEDS: DOCUSATE SODIUM 100 MG CAPSULE PO SCH ×2 (08:15→21:00)
[2018-10-25] MEDS ORDERED: HEPARIN SODIUM,PORCINE 5000 UNITS/ML VIAL ONE (10:18)
[2018-10-25] MEDS: METOPROLOL TARTRATE 25 MG TABLET PO SCH ×2 (13:09→21:31)
[2018-10-25] MEDS: DILTIAZEM HCL 120 MG CAP.SR.24H PO SCH (13:09)
[2018-10-25] MEDS: BALSAM PERU/CASTOR OIL 60 GM OINT...G. TP SCH (13:30)
[2018-10-25] MEDS: PRAMIPEXOLE DI-HCL 0.25 MG TABLET PO SCH (21:31)
[2018-10-25] MEDS: SIMVASTATIN 10 MG TABLET PO SCH (21:31)
[2018-10-26] VITALS (35 sets, daily range): BP systolic 89–116
[2018-10-26] MEDS ORDERED: D5NS 1,000 ML IV ONE (02:15)
[2018-10-26] MEDS: INSULIN LISPRO SLIDING SCALE 100 UNITS/ML VIAL (humaLOG) SUBCUT PRN ×2 (06:38→12:45)
[2018-10-26 07:09] LABS: ALANINE AMINOTRANSFERASE 12 U/L (12-78); ALBUMIN 0.9 g/dL (3.4-4.8); ANION GAP 9 (5-15); ASPARTATE AMINOTRANSFERASE 25 U/L (10-37); CALCIUM 7.4 mg/dL (8.4-11.0); CHLORIDE 97 mmol/L (98-107); CREATININE 2.97 mg/dL (0.55-1.30); GLUCOSE 192 mg/dL (70-99); POTASSIUM 4.6 mmol/L (3.5-5.1); SODIUM SERUM 131 mmol/L (136-145); TOTAL BILIRUBIN 0.7 mg/dL (0.0-1.0); UREA NITROGEN, BLOOD 99 mg/dL (8-21)
[2018-10-26 07:14] LABS: BASOPHILS % (AUTO) 0.1 % (0.0-2.0); EOSINOPHILS % (AUTO) 0.2 % (0.0-4.0); HEMATOCRIT 27.5 % (36-48); LYMPHOCYTES # (AUTO) 0.7 K/uL (1.0-5.5); LYMPHOCYTES % (AUTO) 7.8 % (20.5-51.5); MEAN CORPUSCULAR HEMOGLOBIN 26 pg (27-31); MEAN CORPUSCULAR HGB CONC 33 % (32-36); MEAN CORPUSCULAR VOLUME 79 fL (79.0-98.0); MONOCYTES # (AUTO) 0.4 K/uL (0.0-1.0); MONOCYTES % (AUTO) 4.7 % (1.7-9.3); NEUTROPHILS # (AUTO) 7.7 K/uL (1.8-7.7); NEUTROPHILS % (AUTO) 87.2 % (40.0-70.0); PLATELET COUNT (AUTO) 149 K/uL (130-430); RED CELL DISTRIBUTION WIDTH 23.7 % (9.0-15.0); WHITE BLOOD COUNT (AUTO) 8.8 K/uL (4.8-10.8)
[2018-10-26] MEDS: DILTIAZEM HCL 120 MG CAP.SR.24H PO SCH (08:53)
[2018-10-26] MEDS: DOCUSATE SODIUM 100 MG CAPSULE PO SCH ×2 (08:53→20:49)
[2018-10-26] MEDS: FAMOTIDINE 20 MG TABLET PO SCH ×2 (08:53→20:49)
[2018-10-26] MEDS: OXYBUTYNIN CHLORIDE 5 MG TABLET PO SCH (08:53)
[2018-10-26] MEDS: HEPARIN SODIUM,PORCINE 5000 UNITS/ML VIAL SUBCUT SCH ×2 (08:54→21:41)
[2018-10-26] MEDS: BALSAM PERU/CASTOR OIL 60 GM OINT...G. TP SCH (08:55)
[2018-10-26] MEDS: METOPROLOL TARTRATE 25 MG TABLET PO SCH ×2 (09:00→20:49)
[2018-10-26] MEDS ORDERED: MIDAZOLAM HCL 5 MG/5 ML VIAL ONE ×2 (11:22→11:23)
[2018-10-26] MEDS ORDERED: SIMETHICONE 40 MG/0.6 ML ML ONE (11:24)
[2018-10-26] MEDS ORDERED: fentaNYL CITRATE/PF 100 MCG/2 ML AMP ONE (11:24)
[2018-10-26] MEDS ORDERED: MENTHOL/ZINC OXIDE 113 GM OINT. TP PRN (13:00)
[2018-10-26 14:10] LABS: INR 1.1 (0.8-1.2); PROTHROMBIN TIME 10.8 SECS (9.5-12.5)
[2018-10-26] MEDS ORDERED: VANCOMYCIN HCL 1 GM/NS PREMIX 250 ML IV ONE (15:30)
[2018-10-26] MEDS ORDERED: ALBUMIN HUMAN 25% 50 ML IV ONE (16:30)
[2018-10-26] MEDS ORDERED: ALTEPLASE 2 MG VIAL MC ONE (18:30)
[2018-10-26] MEDS: NACL 0.9% 250 ML IV SCH (18:49)
[2018-10-26] MEDS: PRAMIPEXOLE DI-HCL 0.25 MG TABLET PO SCH (20:49)
[2018-10-26] MEDS: SIMVASTATIN 10 MG TABLET PO SCH (20:49)
[2018-10-27] VITALS (33 sets, daily range): BP systolic 94–118
[2018-10-27] MEDS: INSULIN LISPRO SLIDING SCALE 100 UNITS/ML VIAL (humaLOG) SUBCUT PRN ×3 (06:35→17:22)
[2018-10-27 07:07] LABS: ANION GAP 12 (5-15); CALCIUM 7.2 mg/dL (8.4-11.0); CHLORIDE 97 mmol/L (98-107); CREATININE 3.16 mg/dL (0.55-1.30); GLUCOSE 165 mg/dL (70-99); POTASSIUM 4.7 mmol/L (3.5-5.1); SODIUM SERUM 134 mmol/L (136-145)
[2018-10-27 07:26] LABS: UREA NITROGEN, BLOOD 107 mg/dL (8-21)
[2018-10-27] MEDS: FAMOTIDINE 20 MG TABLET PO SCH ×2 (08:50→22:05)
[2018-10-27] MEDS: HEPARIN SODIUM,PORCINE 5000 UNITS/ML VIAL SUBCUT SCH ×2 (08:51→22:09)
[2018-10-27] MEDS: METOPROLOL TARTRATE 25 MG TABLET PO SCH ×2 (09:00→22:05)
[2018-10-27] MEDS: DILTIAZEM HCL 120 MG CAP.SR.24H PO SCH (09:00)
[2018-10-27] MEDS: BALSAM PERU/CASTOR OIL 60 GM OINT...G. TP SCH (09:00)
[2018-10-27] MEDS: DOCUSATE SODIUM 100 MG CAPSULE PO SCH ×2 (09:00→21:00)
[2018-10-27] MEDS: NACL 0.9% 250 ML IV SCH (18:18)
[2018-10-27] MEDS ORDERED: ALBUMIN HUMAN 25% 100 ML IV ONE ×2 (18:30→19:54)
[2018-10-27 19:56] LABS: SOURCE/TYPE ,BODY FLUID PARACENTESIS
[2018-10-27 19:57] LABS: BF APPEARANCE UNSPUN HAZY (CLEAR); BODY FLUID COLOR YELLOW (LT YELLOW); BODY FLUID SOURCE/ TYPE ASCITES; BODY FLUID TOTAL VOLUME 5200 mL
[2018-10-27 19:58] LABS: LYMPHOCYTES, BODY FLUID 5 %; MONOCYTES,BODY FLUID 10 %; WBC, BODY FLUID 594 /uL
[2018-10-27 20:00] LABS: RBC, BODY FLUID 5325 /uL
[2018-10-27] MEDS ORDERED: HEPARIN SODIUM,PORCINE 5000 UNITS/ML VIAL ONE (21:16)
[2018-10-27] MEDS: PRAMIPEXOLE DI-HCL 0.25 MG TABLET PO SCH (22:04)
[2018-10-27] MEDS: SIMVASTATIN 10 MG TABLET PO SCH (22:05)
[2018-10-27 22:16] LABS: BODY FLUID GLUCOSE 128 mg/dL; BODY FLUID TOTAL PROTEIN 2.7 g/dL
[2018-10-28] VITALS (36 sets, daily range): BP systolic 84–133
[2018-10-28] MEDS: INSULIN LISPRO SLIDING SCALE 100 UNITS/ML VIAL (humaLOG) SUBCUT PRN ×3 (06:17→20:47)
[2018-10-28 07:08] LABS: BASOPHILS % (AUTO) 0.3 % (0.0-2.0); EOSINOPHILS % (AUTO) 0.2 % (0.0-4.0); HEMOGLOBIN 8.3 g/dL (12.0-16.0); LYMPHOCYTES # (AUTO) 0.5 K/uL (1.0-5.5); LYMPHOCYTES % (AUTO) 9.3 % (20.5-51.5); MEAN CORPUSCULAR HEMOGLOBIN 26 pg (27-31); MEAN CORPUSCULAR HGB CONC 32 % (32-36); MEAN CORPUSCULAR VOLUME 80 fL (79.0-98.0); MONOCYTES # (AUTO) 0.3 K/uL (0.0-1.0); MONOCYTES % (AUTO) 5.5 % (1.7-9.3); NEUTROPHILS # (AUTO) 4.8 K/uL (1.8-7.7); NEUTROPHILS % (AUTO) 84.7 % (40.0-70.0); PLATELET COUNT (AUTO) 140 K/uL (130-430); RED BLOOD CELL COUNT(AUTO) 3.23 MIL/uL (4.2-6.2); WHITE BLOOD COUNT (AUTO) 5.7 K/uL (4.8-10.8)
[2018-10-28] MEDS: METOPROLOL TARTRATE 25 MG TABLET PO SCH ×2 (09:00→20:40)
[2018-10-28] MEDS: FAMOTIDINE 20 MG TABLET PO SCH ×2 (10:11→20:40)
[2018-10-28] MEDS: DOCUSATE SODIUM 100 MG CAPSULE PO SCH ×2 (10:11→20:41)
[2018-10-28] MEDS: BALSAM PERU/CASTOR OIL 60 GM OINT...G. TP SCH (10:13)
[2018-10-28] MEDS: HEPARIN SODIUM,PORCINE 5000 UNITS/ML VIAL SUBCUT SCH ×2 (10:18→20:48)
[2018-10-28] MEDS: DILTIAZEM HCL 120 MG CAP.SR.24H PO SCH (10:20)
[2018-10-28] MEDS: NACL 0.9% 250 ML IV SCH (18:33)
[2018-10-28] MEDS: SIMVASTATIN 10 MG TABLET PO SCH (20:40)
[2018-10-28] MEDS: PRAMIPEXOLE DI-HCL 0.25 MG TABLET PO SCH (20:40)
[2018-10-29] VITALS (35 sets, daily range): BP systolic 75–133
[2018-10-29 06:39] LABS: ALANINE AMINOTRANSFERASE 9 U/L (12-78); ALBUMIN 1.2 g/dL (3.4-4.8); ANION GAP 6 (5-15); ASPARTATE AMINOTRANSFERASE 23 U/L (10-37); CALCIUM 7.1 mg/dL (8.4-11.0); CHLORIDE 99 mmol/L (98-107); CREATININE 2.78 mg/dL (0.55-1.30); GLUCOSE 150 mg/dL (70-99); POTASSIUM 4.7 mmol/L (3.5-5.1); SODIUM SERUM 132 mmol/L (136-145); TOTAL BILIRUBIN 0.6 mg/dL (0.0-1.0); UREA NITROGEN, BLOOD 92 mg/dL (8-21)
[2018-10-29 06:43] LABS: TOTAL IRON BIND. CAPACITY 134 ug/dL (250-450)
[2018-10-29 07:53] LABS: HEMATOCRIT 27.9 % (36-48); HEMOGLOBIN 8.8 g/dL (12.0-16.0); MEAN CORPUSCULAR HEMOGLOBIN 26 pg (27-31); MEAN CORPUSCULAR HGB CONC 32 % (32-36); MEAN CORPUSCULAR VOLUME 81 fL (79.0-98.0); RED BLOOD CELL COUNT(AUTO) 3.46 MIL/uL (4.2-6.2); RED CELL DISTRIBUTION WIDTH 25.3 % (9.0-15.0); WHITE BLOOD COUNT (AUTO) 5.2 K/uL (4.8-10.8)
[2018-10-29 07:54] LABS: PLATELET COUNT (AUTO) 144 K/uL (130-430)
[2018-10-29] MEDS: METOPROLOL TARTRATE 25 MG TABLET PO SCH ×2 (08:42→21:38)
[2018-10-29] MEDS: FAMOTIDINE 20 MG TABLET PO SCH ×2 (08:43→21:37)
[2018-10-29] MEDS: DILTIAZEM HCL 120 MG CAP.SR.24H PO SCH (08:43)
[2018-10-29] MEDS: DOCUSATE SODIUM 100 MG CAPSULE PO SCH ×2 (08:43→21:00)
[2018-10-29] MEDS: HEPARIN SODIUM,PORCINE 5000 UNITS/ML VIAL SUBCUT SCH ×2 (08:45→21:51)
[2018-10-29] MEDS: BALSAM PERU/CASTOR OIL 60 GM OINT...G. TP SCH (08:52)
[2018-10-29 09:44] LABS: BASOPHILS % (AUTO) 0.3 % (0.0-2.0); EOSINOPHILS % (AUTO) 0.3 % (0.0-4.0); LYMPHOCYTES # (AUTO) 0.7 K/uL (1.0-5.5); LYMPHOCYTES % (AUTO) 14.5 % (20.5-51.5); MONOCYTES # (AUTO) 0.3 K/uL (0.0-1.0); MONOCYTES % (AUTO) 5.9 % (1.7-9.3); NEUTROPHILS # (AUTO) 4.1 K/uL (1.8-7.7)
[2018-10-29] MEDS ORDERED: NOREPINEPHRINE 4 MG/4 ML VIAL IV ONE (11:20)
[2018-10-29] MEDS: NOREPINEPHRINE BITARTRATE 4 MG in NS 246 ML IV PRN ×3 (11:49→23:24)
[2018-10-29] MEDS: INSULIN LISPRO SLIDING SCALE 100 UNITS/ML VIAL (humaLOG) SUBCUT PRN ×2 (17:24→21:53)
[2018-10-29] MEDS: NACL 0.9% 250 ML IV SCH (18:01)
[2018-10-29] MEDS: PRAMIPEXOLE DI-HCL 0.25 MG TABLET PO SCH (21:37)
[2018-10-29] MEDS: SIMVASTATIN 10 MG TABLET PO SCH (21:37)
[2018-10-30] VITALS (31 sets, daily range): BP systolic 96–141
[2018-10-30] MEDS: NOREPINEPHRINE BITARTRATE 4 MG in NS 246 ML IV PRN (05:10)
[2018-10-30 06:23] LABS: HEMATOCRIT 32.1 % (36-48); HEMOGLOBIN 10.2 g/dL (12.0-16.0); MEAN CORPUSCULAR HEMOGLOBIN 26 pg (27-31); MEAN CORPUSCULAR HGB CONC 32 % (32-36); MEAN CORPUSCULAR VOLUME 81 fL (79.0-98.0); PLATELET COUNT (AUTO) 161 K/uL (130-430); RED BLOOD CELL COUNT(AUTO) 3.97 MIL/uL (4.2-6.2); RED CELL DISTRIBUTION WIDTH 25.1 % (9.0-15.0); WHITE BLOOD COUNT (AUTO) 5.7 K/uL (4.8-10.8)
[2018-10-30 06:24] LABS: BASOPHILS # (AUTO) 0.1 K/uL (0.0-0.2); BASOPHILS % (AUTO) 1.3 % (0.0-2.0); EOSINOPHILS % (AUTO) 0.3 % (0.0-4.0); LYMPHOCYTES # (AUTO) 0.8 K/uL (1.0-5.5); LYMPHOCYTES % (AUTO) 14.8 % (20.5-51.5); MONOCYTES # (AUTO) 0.4 K/uL (0.0-1.0); MONOCYTES % (AUTO) 6.6 % (1.7-9.3); NEUTROPHILS # (AUTO) 4.4 K/uL (1.8-7.7)
[2018-10-30] MEDS: INSULIN LISPRO SLIDING SCALE 100 UNITS/ML VIAL (humaLOG) SUBCUT PRN ×4 (06:31→21:17)
[2018-10-30 06:42] LABS: ANION GAP 12 (5-15); CALCIUM 7.5 mg/dL (8.4-11.0); CHLORIDE 99 mmol/L (98-107); GLUCOSE 210 mg/dL (70-99); POTASSIUM 4.8 mmol/L (3.5-5.1); SODIUM SERUM 137 mmol/L (136-145)
[2018-10-30 06:54] LABS: ALANINE AMINOTRANSFERASE 9 U/L (12-78); ALBUMIN 1.2 g/dL (3.4-4.8); ASPARTATE AMINOTRANSFERASE 21 U/L (10-37); TOTAL BILIRUBIN 0.6 mg/dL (0.0-1.0)
[2018-10-30 07:03] LABS: UREA NITROGEN, BLOOD 107 mg/dL (8-21)
[2018-10-30] MEDS: FAMOTIDINE 20 MG TABLET PO SCH ×2 (08:23→20:56)
[2018-10-30] MEDS: DILTIAZEM HCL 120 MG CAP.SR.24H PO SCH (08:24)
[2018-10-30] MEDS: METOPROLOL TARTRATE 25 MG TABLET PO SCH ×2 (08:24→20:57)
[2018-10-30] MEDS: DOCUSATE SODIUM 100 MG CAPSULE PO SCH ×2 (08:25→20:57)
[2018-10-30] MEDS: BALSAM PERU/CASTOR OIL 60 GM OINT...G. TP SCH (08:26)
[2018-10-30] MEDS: HEPARIN SODIUM,PORCINE 5000 UNITS/ML VIAL SUBCUT SCH ×2 (09:00→21:18)
[2018-10-30] MEDS ORDERED: NOREPINEPHRINE BITARTRATE 8 MG in NS 242 ML IV PRN (10:00)
[2018-10-30] MEDS ORDERED: NOREPINEPHRINE 4 MG/4 ML VIAL IV ONE (10:07)
[2018-10-30] MEDS ORDERED: CEFEPIME 1 GM in D5W 50 ML IV ONE (10:30)
[2018-10-30] MEDS ORDERED: metroNIDAZOLE 500 mg/NS 100 ML IV ONE (11:30)
[2018-10-30 14:59] LABS: NEUTROPHIL, BODY FLUID 85 %
[2018-10-30] MEDS: NACL 0.9% 250 ML IV SCH (18:14)
[2018-10-30] MEDS: NOREPINEPHRINE BITARTRATE 8 MG in NS 242 ML IV PRN (20:56)
[2018-10-30] MEDS: metroNIDAZOLE 500 mg/NS 100 ML IV SCH (20:56)
[2018-10-30] MEDS: SIMVASTATIN 10 MG TABLET PO SCH (20:57)
[2018-10-30] MEDS: PRAMIPEXOLE DI-HCL 0.25 MG TABLET PO SCH (20:57)
[2018-10-31] VITALS (30 sets, daily range): BP systolic 101–147
[2018-10-31] MEDS: ACETAMINOPHEN 325 MG TABLET NG PRN (00:29)
[2018-10-31 05:51] LABS: ANION GAP 8 (5-15); CALCIUM 7.1 mg/dL (8.4-11.0); CHLORIDE 101 mmol/L (98-107); CREATININE 2.27 mg/dL (0.55-1.30); GLUCOSE 191 mg/dL (70-99); POTASSIUM 4.2 mmol/L (3.5-5.1); SODIUM SERUM 138 mmol/L (136-145); UREA NITROGEN, BLOOD 83 mg/dL (8-21)
[2018-10-31 05:54] LABS: WHITE BLOOD COUNT (AUTO) 6.9 K/uL (4.8-10.8)
[2018-10-31 05:55] LABS: HEMATOCRIT 34.7 % (36-48); HEMOGLOBIN 11.2 g/dL (12.0-16.0); MEAN CORPUSCULAR HEMOGLOBIN 26 pg (27-31); MEAN CORPUSCULAR HGB CONC 32 % (32-36); MEAN CORPUSCULAR VOLUME 80 fL (79.0-98.0); RED BLOOD CELL COUNT(AUTO) 4.32 MIL/uL (4.2-6.2)
[2018-10-31 05:56] LABS: BASOPHILS % (AUTO) 0.4 % (0.0-2.0); EOSINOPHILS % (AUTO) 0.1 % (0.0-4.0); LYMPHOCYTES # (AUTO) 1.1 K/uL (1.0-5.5); LYMPHOCYTES % (AUTO) 15.9 % (20.5-51.5); MONOCYTES # (AUTO) 0.5 K/uL (0.0-1.0); MONOCYTES % (AUTO) 7.3 % (1.7-9.3); NEUTROPHILS # (AUTO) 5.3 K/uL (1.8-7.7); NEUTROPHILS % (AUTO) 76.3 % (40.0-70.0); PLATELET COUNT (AUTO) 152 K/uL (130-430); RED CELL DISTRIBUTION WIDTH 25.3 % (9.0-15.0)
[2018-10-31 05:57] LABS: ALANINE AMINOTRANSFERASE 9 U/L (12-78); ALBUMIN 1.1 g/dL (3.4-4.8); ASPARTATE AMINOTRANSFERASE 25 U/L (10-37); TOTAL BILIRUBIN 0.7 mg/dL (0.0-1.0)
[2018-10-31] MEDS: NOREPINEPHRINE BITARTRATE 8 MG in NS 242 ML IV PRN ×3 (06:12→20:16)
[2018-10-31] MEDS: ACETAMINOPHEN 650 MG/20.3 ML UDC GT PRN (06:59)
[2018-10-31] MEDS: metroNIDAZOLE 500 mg/NS 100 ML IV SCH ×2 (08:26→21:00)
[2018-10-31] MEDS: METOPROLOL TARTRATE 25 MG TABLET PO SCH ×2 (08:27→21:00)
[2018-10-31] MEDS: DILTIAZEM HCL 120 MG CAP.SR.24H PO SCH (08:27)
[2018-10-31] MEDS: DOCUSATE SODIUM 100 MG CAPSULE PO SCH ×2 (08:28→21:00)
[2018-10-31] MEDS: FAMOTIDINE 20 MG TABLET PO SCH ×2 (08:28→22:03)
[2018-10-31] MEDS: HEPARIN SODIUM,PORCINE 5000 UNITS/ML VIAL SUBCUT SCH ×2 (08:31→21:00)
[2018-10-31] MEDS: BALSAM PERU/CASTOR OIL 60 GM OINT...G. TP SCH (08:32)
[2018-10-31] MEDS ORDERED: CEFEPIME 1 GM in D5W 50 ML IV SCH (09:00)
[2018-10-31] MEDS: CEFEPIME 1 GM in D5W 50 ML IV SCH (11:37)
[2018-10-31] MEDS: INSULIN LISPRO SLIDING SCALE 100 UNITS/ML VIAL (humaLOG) SUBCUT PRN ×2 (11:47→18:02)
[2018-10-31] MEDS: NACL 0.9% 250 ML IV SCH ×3 (13:46→23:37)
[2018-10-31 17:46] LABS: BILIRUBIN,URINE NEGATIVE (NEGATIVE); BLOOD, URINE 2+ (NEGATIVE); CLARITY/URINE CLEAR (CLEAR); COLOR,URINE YELLOW (YELLOW); GLUCOSE,URINE NEGATIVE (NEGATIVE); KETONES,URINE NEGATIVE (NEGATIVE); LEUKOCYTE ESTERASE ,URINE 1+ (NEGATIVE); NITRITE, URINE NEGATIVE (NEGATIVE); PH,URINE 6.5 (5.0-8.0); PROTEIN URINE 2+ (NEGATIVE); UROBILINOGEN,URINE 0.2 (0.2-1.0)
[2018-10-31 18:02] LABS: BACTERIA,URINE MANY /HPF (None Seen)
[2018-10-31] MEDS ORDERED: NOREPINEPHRINE 4 MG/4 ML VIAL IV ONE (18:55)
[2018-10-31] MEDS ORDERED: fentaNYL CITRATE/PF 100 MCG/2 ML AMP IVP PRN ×2 (21:00)
[2018-10-31] MEDS ORDERED: ONDANSETRON HCL 4 MG/2 ML VIAL IVP PRN (21:00)
[2018-10-31] MEDS: PRAMIPEXOLE DI-HCL 0.25 MG TABLET PO SCH (22:03)
[2018-10-31] MEDS: SIMVASTATIN 10 MG TABLET PO SCH (22:03)
[2018-11-01] VITALS (28 sets, daily range): BP systolic 74–128
[2018-11-01] MEDS: NOREPINEPHRINE BITARTRATE 8 MG in NS 242 ML IV PRN (02:17)
[2018-11-01] MEDS ORDERED: NOREPINEPHRINE 4 MG/4 ML VIAL IV ONE (02:21)
[2018-11-01] MEDS: NACL 0.9% 250 ML IV SCH ×4 (04:47→18:45)
[2018-11-01 07:41] LABS: ANION GAP 15 (5-15); CHLORIDE 103 mmol/L (98-107); CREATININE 2.34 mg/dL (0.55-1.30); GLUCOSE 155 mg/dL (70-99); POTASSIUM 3.8 mmol/L (3.5-5.1); SODIUM SERUM 140 mmol/L (136-145); UREA NITROGEN, BLOOD 85 mg/dL (8-21)
[2018-11-01 07:45] LABS: CALCIUM 6.9 mg/dL (8.4-11.0)
[2018-11-01 07:51] LABS: ALANINE AMINOTRANSFERASE 10 U/L (12-78); ALBUMIN 1.2 g/dL (3.4-4.8); ASPARTATE AMINOTRANSFERASE 31 U/L (10-37); TOTAL BILIRUBIN 0.8 mg/dL (0.0-1.0)
[2018-11-01 08:13] LABS: HEMOGLOBIN 10.4 g/dL (12.0-16.0); MEAN CORPUSCULAR HEMOGLOBIN 26 pg (27-31); MEAN CORPUSCULAR HGB CONC 33 % (32-36); MEAN CORPUSCULAR VOLUME 80 fL (79.0-98.0); PLATELET COUNT (AUTO) 161 K/uL (130-430); RED BLOOD CELL COUNT(AUTO) 4.01 MIL/uL (4.2-6.2); RED CELL DISTRIBUTION WIDTH 25.2 % (9.0-15.0); WHITE BLOOD COUNT (AUTO) 7.9 K/uL (4.8-10.8)
[2018-11-01 08:14] LABS: BASOPHILS % (AUTO) 0.1 % (0.0-2.0); LYMPHOCYTES % (AUTO) 12.6 % (20.5-51.5); MONOCYTES # (AUTO) 0.5 K/uL (0.0-1.0); MONOCYTES % (AUTO) 6.5 % (1.7-9.3); NEUTROPHILS # (AUTO) 6.4 K/uL (1.8-7.7); NEUTROPHILS % (AUTO) 80.8 % (40.0-70.0)
[2018-11-01] MEDS: DOCUSATE SODIUM 100 MG CAPSULE PO SCH ×2 (09:00→20:55)
[2018-11-01] MEDS: DILTIAZEM HCL 120 MG CAP.SR.24H PO SCH (09:00)
[2018-11-01] MEDS: BALSAM PERU/CASTOR OIL 60 GM OINT...G. TP SCH (09:00)
[2018-11-01] MEDS: FAMOTIDINE 20 MG TABLET PO SCH ×2 (09:00→20:55)
[2018-11-01] MEDS: metroNIDAZOLE 500 mg/NS 100 ML IV SCH ×2 (09:00→20:56)
[2018-11-01] MEDS: METOPROLOL TARTRATE 25 MG TABLET PO SCH ×2 (09:00→20:56)
[2018-11-01] MEDS: HEPARIN SODIUM,PORCINE 5000 UNITS/ML VIAL SUBCUT SCH ×2 (09:00→21:19)
[2018-11-01] MEDS ORDERED: CALCIUM GLUCONATE 1 GM in NS 50 ML IV ONE (09:15)
[2018-11-01] MEDS ORDERED: DOPamine PREMIX 250 ML IV PRN (10:30)
[2018-11-01] MEDS ORDERED: HYDROCORTISONE SOD SUCC 100 MG/2 ML VIAL IVP ONE (11:00)
[2018-11-01] MEDS ORDERED: MORPHINE 4 MG/ML INJ. SYRINGE IVP PRN (11:00)
[2018-11-01] MEDS ORDERED: VANCOMYCIN HCL 1 GM/NS PREMIX 250 ML IV ONE (11:00)
[2018-11-01] MEDS: INSULIN LISPRO SLIDING SCALE 100 UNITS/ML VIAL (humaLOG) SUBCUT PRN ×2 (11:34→17:10)
[2018-11-01] MEDS: CEFEPIME 1 GM in D5W 50 ML IV SCH (11:46)
[2018-11-01] MEDS: FLUCONAZOLE 200 mg/ NS 100 ML IV SCH (12:31)
[2018-11-01] MEDS: HYDROCORTISONE SOD SUCC 100 MG/2 ML VIAL IVP SCH ×2 (14:45→21:55)
[2018-11-01] MEDS: NOREPINEPHRINE BITARTRATE 16 MG in NS 234 ML IV PRN (15:15)
[2018-11-01] MEDS ORDERED: KCL 40 mEq in 100 mL (PREMIX) 100 ML IV ONE (18:54)
[2018-11-01] MEDS: SIMVASTATIN 10 MG TABLET PO SCH (20:54)
[2018-11-01] MEDS: PRAMIPEXOLE DI-HCL 0.25 MG TABLET PO SCH (20:55)
[2018-11-01] MEDS: ALBUTEROL SULFATE 0.083% 2.5 MG/3 ML VIAL.NEB INH PRN (23:37)
[2018-11-02] VITALS (21 sets, daily range): BP systolic 61–126
[2018-11-02] MEDS: NACL 0.9% 250 ML IV SCH ×3 (00:42→11:48)
[2018-11-02] MEDS: NOREPINEPHRINE BITARTRATE 16 MG in NS 234 ML IV PRN ×2 (02:28→10:46)
[2018-11-02] MEDS ORDERED: SODIUM BICARBONATE 8.4% JECT 50 MEQ/50 ML SYRINGE IVP ONE ×3 (03:00→19:42)
[2018-11-02] MEDS ORDERED: SODIUM BICARBONATE 8.4% JECT 50 MEQ/50 ML SYRINGE ONE (03:03)
[2018-11-02 07:44] LABS: HEMATOCRIT 30.7 % (36-48); HEMOGLOBIN 9.6 g/dL (12.0-16.0); RED BLOOD CELL COUNT(AUTO) 3.68 MIL/uL (4.2-6.2); WHITE BLOOD COUNT (AUTO) 13.1 K/uL (4.8-10.8)
[2018-11-02 07:45] LABS: MEAN CORPUSCULAR HEMOGLOBIN 26 pg (27-31); MEAN CORPUSCULAR HGB CONC 31 % (32-36); MEAN CORPUSCULAR VOLUME 83 fL (79.0-98.0); PLATELET COUNT (AUTO) 175 K/uL (130-430); RED CELL DISTRIBUTION WIDTH 25.9 % (9.0-15.0)
[2018-11-02 07:47] LABS: NEUTROPHILS % (AUTO) 86.1 % (40.0-70.0)
[2018-11-02 07:48] LABS: BASOPHILS # (AUTO) 0.1 K/uL (0.0-0.2); BASOPHILS % (AUTO) 0.7 % (0.0-2.0); LYMPHOCYTES % (AUTO) 7.8 % (20.5-51.5); MONOCYTES # (AUTO) 0.7 K/uL (0.0-1.0); MONOCYTES % (AUTO) 5.4 % (1.7-9.3); NEUTROPHILS # (AUTO) 11.3 K/uL (1.8-7.7)
[2018-11-02 07:52] LABS: ANION GAP 23 (5-15); CHLORIDE 102 mmol/L (98-107); CREATININE 3.02 mg/dL (0.55-1.30); GLUCOSE 116 mg/dL (70-99); POTASSIUM 4.9 mmol/L (3.5-5.1); SODIUM SERUM 140 mmol/L (136-145)
[2018-11-02 08:13] LABS: ALBUMIN 1.2 g/dL (3.4-4.8)
[2018-11-02 08:27] LABS: ALANINE AMINOTRANSFERASE 366 U/L (12-78); ASPARTATE AMINOTRANSFERASE 1753 U/L (10-37); CALCIUM 6.7 mg/dL (8.4-11.0); UREA NITROGEN, BLOOD 101 mg/dL (8-21)
[2018-11-02] MEDS: METOPROLOL TARTRATE 25 MG TABLET PO SCH (09:00)
[2018-11-02] MEDS: DOCUSATE SODIUM 100 MG CAPSULE PO SCH (09:00)
[2018-11-02] MEDS: DILTIAZEM HCL 120 MG CAP.SR.24H PO SCH (09:00)
[2018-11-02] MEDS: FAMOTIDINE 20 MG TABLET PO SCH (09:23)
[2018-11-02] MEDS: HEPARIN SODIUM,PORCINE 5000 UNITS/ML VIAL SUBCUT SCH (09:26)
[2018-11-02] MEDS: metroNIDAZOLE 500 mg/NS 100 ML IV SCH (10:05)
[2018-11-02] MEDS: BALSAM PERU/CASTOR OIL 60 GM OINT...G. TP SCH (10:05)
[2018-11-02] MEDS: PHENYLEPHRINE HCL 30 MG in NS 247 ML IV PRN ×3 (10:50→15:15)
[2018-11-02] MEDS: HYDROCORTISONE SOD SUCC 100 MG/2 ML VIAL IVP SCH ×2 (10:56→13:57)
[2018-11-02] MEDS: ACETAMINOPHEN 650 MG/20.3 ML UDC GT PRN (11:13)
[2018-11-02] MEDS: CEFEPIME 1 GM in D5W 50 ML IV SCH (11:49)
[2018-11-02] MEDS: FLUCONAZOLE 200 mg/ NS 100 ML IV SCH (11:50)
[2018-11-02] MEDS ORDERED: SODIUM BICARBONATE 8.4% VIAL 50 MEQ/50 ML VIAL INJ ONE (16:00)
[2018-11-02] MEDS ORDERED: EPINEPHrine JECT 1 MG/10 ML SYR IVP ONE (19:42)
== END 2018-11-02 17:55 | disposition expired | DRG 3 ==
LOC: SED 12:40 → STU 15:32 → SIC 10-03 14:50
PROVIDERS: ADMIT Internal Medicine; ATTEND Internal Medicine
PROC: 5A1955Z Respiratory Ventilation, Greater than 96 Consecutive Hours (ICD-10-PCS; principal; 2018-10-03)
PROC: 0W9G3ZZ Drainage of Peritoneal Cavity, Percutaneous Approach (ICD-10-PCS; 2018-10-03)
PROC: 0BH17EZ Insertion of Endotracheal Airway into Trachea, Via Natural or Artificial Opening (ICD-10-PCS; 2018-10-03)
PROC: 5A1955Z Respiratory Ventilation, Greater than 96 Consecutive Hours (ICD-10-PCS; 2018-10-12)
PROC: 02HV33Z Insertion of Infusion Device into Superior Vena Cava, Percutaneous Approach (ICD-10-PCS; 2018-10-14)
PROC: 5A1D70Z Performance of Urinary Filtration, Intermittent, Less than 6 Hours Per Day (ICD-10-PCS; 2018-10-14)
PROC: 05HN33Z Insertion of Infusion Device into Left Internal Jugular Vein, Percutaneous Approach (ICD-10-PCS; 2018-10-15)
PROC: B544ZZA Ultrasonography of Left Jugular Veins, Guidance (ICD-10-PCS; 2018-10-15)
PROC: 30233N1 Transfusion of Nonautologous Red Blood Cells into Peripheral Vein, Percutaneous Approach (ICD-10-PCS; 2018-10-21)
PROC: 0B110F4 Bypass Trachea to Cutaneous with Tracheostomy Device, Open Approach (ICD-10-PCS; 2018-10-23)
PROC: 5A1D70Z Performance of Urinary Filtration, Intermittent, Less than 6 Hours Per Day (ICD-10-PCS; 2018-10-23)
PROC: 5A1D70Z Performance of Urinary Filtration, Intermittent, Less than 6 Hours Per Day (ICD-10-PCS; 2018-10-25)
PROC: 0W9G3ZZ Drainage of Peritoneal Cavity, Percutaneous Approach (ICD-10-PCS; 2018-10-27)
PROC: 5A1D70Z Performance of Urinary Filtration, Intermittent, Less than 6 Hours Per Day (ICD-10-PCS; 2018-10-27)
PROC: 5A1D70Z Performance of Urinary Filtration, Intermittent, Less than 6 Hours Per Day (ICD-10-PCS; 2018-10-30)
PROC: 0JB70ZZ Excision of Back Subcutaneous Tissue and Fascia, Open Approach (ICD-10-PCS; 2018-10-31)
PROC: 5A12012 Performance of Cardiac Output, Single, Manual (ICD-10-PCS; 2018-11-02)
DX: A41.02 Sepsis due to Methicillin resistant Staphylococcus aureus (principal); J96.00 Acute respiratory failure, unspecified whether with hypoxia or hypercapnia; J69.0 Pneumonitis due to inhalation of food and vomit; E43 Unspecified severe protein-calorie malnutrition; I50.33 Acute on chronic diastolic (congestive) heart failure; J15.212 Pneumonia due to Methicillin resistant Staphylococcus aureus; J15.5 Pneumonia due to Escherichia coli; R65.21 Severe sepsis with septic shock; B37.49 Other urogenital candidiasis; E11.52 Type 2 diabetes mellitus with diabetic peripheral angiopathy with gangrene; G93.40 Encephalopathy, unspecified; I13.0 Hypertensive heart and chronic kidney disease with heart failure and stage 1 through stage 4 chronic kidney disease, or unspecified chronic kidney disease; N17.9 Acute kidney failure, unspecified; R18.8 Other ascites; K92.2 Gastrointestinal hemorrhage, unspecified; B37.89 Other sites of candidiasis; N39.0 Urinary tract infection, site not specified; L03.116 Cellulitis of left lower limb; L03.115 Cellulitis of right lower limb; I96 Gangrene, not elsewhere classified; Z99.11 Dependence on respirator [ventilator] status; I69.354 Hemiplegia and hemiparesis following cerebral infarction affecting left non-dominant side; E11.65 Type 2 diabetes mellitus with hyperglycemia; I46.9 Cardiac arrest, cause unspecified; R13.10 Dysphagia, unspecified; L89.159 Pressure ulcer of sacral region, unspecified stage; I35.0 Nonrheumatic aortic (valve) stenosis; E11.51 Type 2 diabetes mellitus with diabetic peripheral angiopathy without gangrene; E11.22 Type 2 diabetes mellitus with diabetic chronic kidney disease; E78.5 Hyperlipidemia, unspecified; E87.5 Hyperkalemia; I48.0 Paroxysmal atrial fibrillation; E88.09 Other disorders of plasma-protein metabolism, not elsewhere classified; D63.8 Anemia in other chronic diseases classified elsewhere; F03.90 Unspecified dementia, unspecified severity, without behavioral disturbance, psychotic disturbance, mood disturbance, and anxiety; I48.2 Chronic atrial fibrillation; M81.0 Age-related osteoporosis without current pathological fracture; N18.9 Chronic kidney disease, unspecified; Z87.440 Personal history of urinary (tract) infections; Z88.2 Allergy status to sulfonamides; Z79.899 Other long term (current) drug therapy; Z68.36 Body mass index [BMI] 36.0-36.9, adult; Z99.2 Dependence on renal dialysis
CPT/HCPCS: 36415; 36600; 49083; 71045; 76700-TC; 76937; 80048; 80053; 80069; 80074; 80162-TC; 80202-TC; 81000-TC; 82040-TC; 82042; 82140-TC; 82150-TC; 82272; 82533; 82550-TC; 82803-TC; 82947-TC; 82962; 83540-TC; 83550-TC; 83605; 83690-TC; 83880; 84157-TC; 84484; 85025; 85379; 85610-TC; 85730-TC; 86886; 86900; 86901; 86920; 87040-TC; 87070-TC; 87081; 87086; 87186-TC; 87205-TC; 89051-TC; 89060-TC; 90935; 90937; 92950; 93005; 94002; 94003; 94640; 94760; 96365; 96375; 99285; C1729; C1751; C9113; G0378; J0171; J0610; J0692; J0696; J1265; J1450; J1644; J1720; J1815; J1940; J1956; J2020; J2060; J2250; J2270; J2370; J2405; J2543; J2997; J3010; J3370; J3480; J3490; J7030; J7042; J7050; J7060; J7120; J7613; P9021; P9046